=== PATIENT | male | born 1950 | race Caucasian/White ===

== ENCOUNTER 2021-10-18 21:35 | Emergency (ER) | payer OTHER ==
[2021-10-18 21:40] VITALS: PULSE 91; RESP 20; TEMP 98.6
[2021-10-18] MEDS ORDERED: CEPHALEXIN 500 MG CAP PO STA (21:57)
[2021-10-18] MEDS ORDERED: GELATIN SPONGE,ABSORB (SMALL) 1 EACH SPONGE TOPICAL STA (21:57)
[2021-10-18] MEDS ORDERED: CEPHALEXIN 500MG STARTER PACK 4 CAP BTL PO STA (21:58)
--- NOTE | 2021-10-18 22:00 | ED ---
Wound/Laceration HPI - General Chief Complaint: Wound/Laceration Stated Complaint: Left thumb laceration Time Seen by Provider: 10/18/21 21:40 Source: patient, RN notes reviewed, old records reviewed Mode of arrival: ambulatory Limitations: no limitations - History of Present Illness Initial Comments: This is a 71-year-old male to the emergency department for evaluation today. Patient resents today for evaluation regards to right thumb laceration. Patient does puncture laceration to distal tip of right thumb. No current bleeding, significantly bandaged prior to arrival. Patient is denying any decreased range of motion. -: hour(s) Extremity Location: Right: Arm Place: home Patient Tetanus UTD: Yes Context: accidental Associated Symptoms: none - Related Data Home Medications Medication Instructions Recorded Confirmed Albuterol Nebulized [Ventolin 2.5 mg INHALATION RT-Q6H PRN 08/16/21 08/16/21 Nebulized] Albuterol Sulfate [Albuterol 2 puff PO RT-QID PRN 08/16/21 08/16/21 Sulfate Hfa] Atorvastatin [Lipitor] 40 mg PO HS 08/16/21 08/16/21 Clopidogrel Bisulfate [Plavix] 75 mg PO DAILY 08/16/21 08/16/21 Cyclobenzaprine [Flexeril] 10 mg PO HS 08/16/21 08/16/21 FLUoxetine HCL [PROzac] 20 mg PO DAILY 08/16/21 08/16/21 Gabapentin [Neurontin] 300 mg PO TID 08/16/21 08/16/21 Magnesium Oxide 400 mg PO BID 08/16/21 08/16/21 Naproxen 375 mg PO BID 08/16/21 08/16/21 Omeprazole 40 mg PO DAILY 08/16/21 08/16/21 Sodium Bicarbonate Tab 650 mg PO BID 08/16/21 08/16/21 Tamsulosin [Flomax] 0.8 mg PO HS 08/16/21 08/16/21 Tiotropium Br/Olodaterol HCl 2 puff INHALATION RT-DAILY 08/16/21 08/16/21 [Stiolto Respimat Inhal [place]] oxyCODONE-APAP 10-325MG [Percocet 1 tab PO Q4H PRN 08/16/21 08/16/21 10-325 mg] Allergies Allergy/AdvReac Type Severity Reaction Status Date / Time No Known Allergies Allergy Verified 10/18/21 21:39 Review of Systems ROS Statement: Those systems with pertinent positive or pertinent negative responses have been documented in the HPI. ROS Other: All systems not noted in ROS Statement are negative. Past Medical History Past Medical History: COPD, CVA/TIA, Hypertension, Myocardial Infarction ([place]) Additional Past Medical History / Comment(s): stage 3 kidney failure, heart attack at 30, history of HTN does not take medication now Last Myocardial Infarction Date:: unknown History of Any Multi-Drug Resistant Organisms: None Reported Past Surgical History: Back Surgery Additional Past Surgical History / Comment(s): back surgery, rods and spacers placed 05/09 Past Psychological History: Depression Smoking Status: Former smoker Past Alcohol Use History: None Reported Past Drug Use History: None Reported - Past Family History Family Family Medical History: No Reported History General Exam Limitations: no limitations General appearance: alert, in no apparent distress Head exam: Present: atraumatic, normocephalic, normal inspection Eye exam: Present: normal appearance, PERRL, EOMI. Absent: scleral icterus, conjunctival injection, periorbital swelling ENT exam: Present: normal exam, mucous membranes moist Neck exam: Present: normal inspection. Absent: tenderness, meningismus, lymphadenopathy Respiratory exam: Present: normal lung sounds bilaterally. Absent: respiratory distress, wheezes, rales, rhonchi, stridor Cardiovascular Exam: Present: regular rate, normal rhythm, normal heart sounds. Absent: systolic murmur, diastolic murmur, rubs, gallop, clicks GI/Abdominal exam: Present: soft, normal bowel sounds. Absent: distended, tenderness, guarding, rebound, rigid Extremities exam: Present: normal inspection, full ROM, normal capillary refill, other (minimal bleeding 1 cm thumb laceration). Absent: tenderness, pedal edema, joint swelling, calf tenderness Back exam: Present: normal inspection Neurological exam: Present: alert, oriented X3, CN II-XII intact Psychiatric exam: Present: normal affect, normal mood Skin exam: Present: warm, dry, intact, normal color. Absent: rash Course Vital Signs 10/18/21 21:37 Temperature 98.6 F Pulse Rate 91 Respiratory 20 Rate O2 Sat by Pulse 99 Oximetry - Reevaluation(s) Reevaluation #1: 10/18/21 22:04 Medical record is reviewed Reevaluation #2: 10/18/21 22:04 Patient has tetanus up-to-date, will be placed on antibiotics Patient informed results questions answered Patient still has full range of motion with thumb no current bleeding Reevaluation #3: 10/18/21 22:05 Wound is cleaned and irrigated here in the emergency department, repaired with combination of Dermabond and Gelfoam Procedures - Laceration Laceration #1 Consent Obtained: verbal consent Indication: laceration Site: hand (Right Thumb) Size (cm): 1 Description: linear, clean Depth: simple, single layer Type of Sutures: other (dermabond and Gelfoam) Size of Sutures: other (dermabond and Gelfoam) Patient Tolerated Procedure: well Medical Decision Making - Medical Decision Making 71 male DF for the laceration, accidental laceration to right thumb no current bleeding. Lacerations repaired with sutures, just requiring Gelfoam and Dermabond Disposition Clinical Impression: Laceration, Laceration of right thumb Disposition: HOME SELF-CARE Condition: Good Instructions (If sedation given, give patient instructions): Laceration (ED), Skin Adhesive Care (ED) Is patient prescribed a controlled substance at d/c from ED?: No Referrals: Nonstaff,Physician [Primary Care Provider] - 1-2 days
[2021-10-18] MEDS ORDERED: TOPICAL SKIN ADHESIVE 1 EACH AMP TOPICAL STA (22:09)
== END 2021-10-18 22:32 | disposition home or self-care (01) ==
LOC: EC 21:35
DX: S61.011A Laceration without foreign body of right thumb without damage to nail, initial encounter (principal); J44.9 Chronic obstructive pulmonary disease, unspecified; I10 Essential (primary) hypertension; I25.2 Old myocardial infarction; F32.A Depression, unspecified; Z79.02 Long term (current) use of antithrombotics/antiplatelets; Z86.73 Personal history of transient ischemic attack (TIA), and cerebral infarction without residual deficits; Z87.891 Personal history of nicotine dependence; X58.XXXA Exposure to other specified factors, initial encounter
CPT/HCPCS: 12001; 99282

== ENCOUNTER 2022-03-28 16:31 | Emergency (ER) | payer OTHER, MEDICARE ==
[2022-03-28 16:49] VITALS: BP 105/51; PULSE 95; RESP 20; TEMP 97.8
[2022-03-28] MEDS ORDERED: KETOROLAC 15 MG/ML 1 ML VIAL IM STA (17:14)
[2022-03-28] MEDS ORDERED: MORPHINE SULFATE 4 MG/ML SYRINGE IM STA (17:14)
--- NOTE | 2022-03-28 18:02 | CT ---
EXAMINATION TYPE: CT lumbar spine wo con DATE OF EXAM: 03/28/2022 COMPARISON: None HISTORY: Back pain after fall. Fell into tree stump CT DLP: 1052.6 mGycm Automated exposure control for dose reduction was used. Images obtained from the level of T12-S2 vertebra with no contrast. Fairly normal alignment. There is a minimal L4-5 subluxation. There is luzmaria and screws fusing posterio rly the lumbar spine from L3 to L5. There is no paraspinal mass. There is right side multilevel brittani ectomy defect. Sacroiliac joints are intact. No focal bone destruction. There is disc prosthesis at L 3-4 and L4-5. There is vacuum disc at L5-S1. The visualized sacrum appears intact. IMPRESSION: Previous surgery. No acute abnormality of the lumbar spine. No fracture seen.
--- NOTE | 2022-03-28 18:29 | ED ---
Back Pain [facility] - General Chief Complaint: Back Pain/Injury Stated Complaint: Fall, Lower Back Pain Time Seen by Provider: 03/28/22 16:51 Source: patient, RN notes reviewed Limitations: no limitations - History of Present Illness Initial Comments: Patient is a 71-year-old male presents the emergency room with complaints of persistent severe back pain and bilateral lower extremity tingling ongoing since a fall earlier in the week. He reports that he has chronic back pain and underwent spinal fusion with hardware implementation in May of last year. He reports he had bilateral lower extremity tingling prior to surgery however it had resolved postoperatively. He wears his back brace regularly and is taking Cicero along with a muscle relaxer for pain. He reports that he took both of those medications earlier today without any symptom relief. He denies any bowel or bladder incontinence, focal neuro deficits, weakness, saddle paresthesia, or difficulty walking. He has a past medical history significant for COPD, TIA, CAD, PR, hypertension and chronic kidney disease stage III. He denies any other complaints or concerns at this time. - Related Data Home Medications Medication Instructions Recorded Confirmed Albuterol Nebulized [Ventolin 2.5 mg INHALATION RT-Q6H PRN 08/16/21 08/16/21 Nebulized] Albuterol Sulfate [Albuterol 2 puff PO RT-QID PRN 08/16/21 08/16/21 Sulfate Hfa] Atorvastatin [Lipitor] 40 mg PO HS 08/16/21 08/16/21 Clopidogrel Bisulfate [Plavix] 75 mg PO DAILY 08/16/21 08/16/21 Cyclobenzaprine [Flexeril] 10 mg PO HS 08/16/21 08/16/21 FLUoxetine HCL [PROzac] 20 mg PO DAILY 08/16/21 08/16/21 Gabapentin [Neurontin] 300 mg PO TID 08/16/21 08/16/21 Magnesium Oxide 400 mg PO BID 08/16/21 08/16/21 Naproxen 375 mg PO BID 08/16/21 08/16/21 Omeprazole 40 mg PO DAILY 08/16/21 08/16/21 Sodium Bicarbonate Tab 650 mg PO BID 08/16/21 08/16/21 Tamsulosin [Flomax] 0.8 mg PO HS 08/16/21 08/16/21 Tiotropium Br/Olodaterol HCl 2 puff INHALATION RT-DAILY 08/16/21 08/16/21 [Stiolto Respimat Inhal [place]] oxyCODONE-APAP 10-325MG [Percocet 1 tab PO Q4H PRN 08/16/21 08/16/21 10-325 mg] Previous Rx's Medication Instructions Recorded Lidocaine 5% Patch [Lidoderm 5% 1 patch TOPICAL DAILY 7 Days #7 03/28/22 Patch] patch methylPREDNISolone Dose Pack 4 mg PO DIRECTED #21 tab 03/28/22 [Medrol Dose Pack] Allergies Allergy/AdvReac Type Severity Reaction Status Date / Time No Known Allergies Allergy Verified 03/28/22 16:49 Review of Systems ROS Statement: Those systems with pertinent positive or pertinent negative responses have been documented in the HPI. ROS Other: All systems not noted in ROS Statement are negative. Past Medical History Past Medical History: COPD, CVA/TIA, Hypertension, Myocardial Infarction ([place]) Additional Past Medical History / Comment(s): stage 3 kidney failure, heart attack at 30, history of HTN does not take medication now Last Myocardial Infarction Date:: unknown History of Any Multi-Drug Resistant Organisms: None Reported Past Surgical History: Back Surgery Additional Past Surgical History / Comment(s): back surgery, rods and spacers placed 05/09 Past Psychological History: Depression Smoking Status: Former smoker Past Alcohol Use History: None Reported Past Drug Use History: None Reported - Past Family History Family Family Medical History: No Reported History General Exam Limitations: no limitations Course Vital Signs 03/28/22 16:47 Temperature 97.8 F Pulse Rate 95 Respiratory 20 Rate Blood Pressure 105/51 O2 Sat by Pulse 97 Oximetry Medical Decision Making - Medical Decision Making Given previous back history with surgery and hardware implementation concern for hardware dislodgment in the onset of, with return of presurgical symptoms. Pain refractory to oral medications will give morphine along with dose of ketolac. No indication for any other diagnostic imaging or laboratory studies at this time. CT lumbar spine without contrast shows previous surgery no acute abnormalities of the lumbar spine no fracture seen with fairly normal alignment. Pain improved with morphine and Toradol. Discuss computed tomography scan results with patient patient agreeable for discharge home with follow-up with his primary care provider and orthopedic surgeon. Continue to use home analgesics including Cicero and Flexeril. Will give Medrol Dosepak and lidocaine patches to help with acute pain symptoms. Case discussed with Dr. Reyes. - Radiology Data Radiology results: report reviewed, image reviewed Disposition Clinical Impression: Lumbar back pain with radiculopathy affecting lower extremity Disposition: HOME SELF-CARE Condition: Stable Instructions (If sedation given, give patient instructions): Acute Low Back Pain (ED) Additional Instructions: Please continue to wear back brace. Please utilize already prescribed Cicero and muscle relaxer for pain along with Medrol Dosepak to be taken as prescribed until completed. Utilization of lidocaine patches for acute pain is also recommended. Avoid heavy lifting. Please follow-up with your primary care provider annual orthopedic surgeon. If any worsening of symptoms or concerns please return to the emergency room. Prescriptions: Lidocaine 5% Patch [Lidoderm 5% Patch] 1 patch TOPICAL DAILY 7 Days #7 patch methylPREDNISolone Dose Pack [Medrol Dose Pack] 4 mg PO DIRECTED #21 tab Is patient prescribed a controlled substance at d/c from ED?: No Referrals: None,Stated [Primary Care Provider] - 1-2 days Time of Disposition: 18:31
== END 2022-03-28 18:51 | disposition home or self-care (01) ==
LOC: EC 16:31
DX: M54.16 Radiculopathy, lumbar region (principal); I10 Essential (primary) hypertension; J44.9 Chronic obstructive pulmonary disease, unspecified; I25.2 Old myocardial infarction; Z87.891 Personal history of nicotine dependence
CPT/HCPCS: 72131; 99283; 96372; J2270; J1885

== ENCOUNTER → 2022-04-28 | Outpatient (CLI) | payer MEDICARE, OTHER ==
--- NOTE | 2022-04-29 04:52 | MR ---
EXAMINATION TYPE: MR lumbar spine wo con DATE OF EXAM: 04/28/2022 COMPARISON: None HISTORY: Low back pain that radiates down legs, trouble walking. History of surgery Multiplanar multiecho imaging of the lumbar spine with no contrast. Normal alignment. There is metal artifact from screws and rods fusing posteriorly the lumbar spine fr om L3 to L5. No evidence of spinal stenosis. Disc spaces are fairly normal. No compression fracture. The sacrum appears intact. No evidence of lumbar paraspinal mass. Sacroiliac joints appear intact. No pathologic fluid collection. IMPRESSION: Multilevel fusion surgery. No spinal stenosis. No fracture. There is some mild facet arthropathy at L 4-5 and probably some lateral recess stenosis.
== END | disposition home or self-care (01) ==
LOC: RADMRIMAIN 14:29
PROVIDERS: ATTEND Neurological Surgery
DX: M48.062 Spinal stenosis, lumbar region with neurogenic claudication (principal); M43.23 Fusion of spine, cervicothoracic region
CPT/HCPCS: 72148

== ENCOUNTER → 2022-05-27 | Outpatient (CLI) | payer OTHER ==
[2022-05-27 13:55] LABS: Partial Thromboplastin Time 24.8 sec (22.0-30.0); Prothrombin Time 10.5 sec (9.0-12.0)
[2022-05-27 18:06] LABS: Albumin 4.2 g/dL (3.8-4.9); Albumin/Globulin Ratio 1.24 (1.60-3.17); Anion Gap 11.2 mmol/L (10.00-18.00); BUN/Creat Ratio 11.1 Ratio (12.00-20.00); Blood Urea Nitrogen 13.1 mg/dL (9.0-27.0); Calcium 9.3 mg/dL (8.7-10.3); Carbon Dioxide 24.3 mmol/L (20.0-27.5); Globulin 3.4 g/dL (1.6-3.3); Non-African American GFR(CKD) 62.2 (60.0-200.0); Potassium 4.6 mmol/L (3.5-5.5); Total Bilirubin 0.4 mg/dL (0.30-1.20); Total Protein 7.6 g/dL (6.2-8.2)
[2022-05-27 18:25] LABS: HCT 36.9 % (39.6-50.0); HGB 11.6 g/dL (13.0-17.0); MCH 25.8 pg (27.0-32.0); MCHC 31.4 g/dL (32.0-37.0); MCV 82.2 fL (80.0-97.0); Mean Platelet Volume 8.7 fL (9.5-12.2); NRBC Per 100 WBC 0 /100 WBCS (0.0-0.0); Platelet Count 370 X 10*3/uL (140-440); RBC 4.49 X 10*6/uL (4.40-5.60); WBC 7.02 X 10*3/uL (4.50-10.00)
--- NOTE | 2022-05-28 21:35 | XR ---
EXAMINATION TYPE: XR chest 2V DATE OF EXAM: 05/27/2022 COMPARISON: 08/16/2021 INDICATION: Presurgical clearance TECHNIQUE: Frontal and lateral views of the chest are obtained. FINDINGS: The heart size is normal. The pulmonary vasculature is normal. There are increased lung markings at the lung apices. Bilateral apical thickening is present, greater on the right. Increased lung markings extend through the right lung. Correlate for pulmonary fibrosi s. IMPRESSION: 1. By lateral apical thickening with increased lung markings more noted on the right compatible with pulmonary fibrosis. Findings appear similar to comparison
== END | disposition home or self-care (01) ==
LOC: LABWHC1 12:35
PROVIDERS: ATTEND Neurological Surgery
DX: Z01.812 Encounter for preprocedural laboratory examination (principal); J84.10 Pulmonary fibrosis, unspecified
CPT/HCPCS: 36415; 71046; 80053; 85027; 85610; 85730; 93005

== ENCOUNTER 2022-09-18 16:44 | Observation (INO) | payer OTHER, MEDICARE ==
--- NOTE | 2022-09-18 18:14 | XR ---
EXAMINATION TYPE: XR chest 2V DATE OF EXAM: 09/18/2022 6:03 PM COMPARISON: Chest radiographs from 05/27/2022 TECHNIQUE: XR chest 2V Frontal and lateral views of the chest. CLINICAL INDICATION:Male, 72 years old with history of Chest Pain; FINDINGS: Lungs/Pleura: Scattered subtle reticular and hazy opacities. No evidence of pneumothorax, focal conso lidation or pleural effusion. There is flattening of the diaphragm with increased lucency of the lung s. Pulmonary vascularity: Unremarkable. Heart/mediastinum: Cardiomediastinal silhouette is unremarkable. Musculoskeletal: No acute osseous pathology. IMPRESSION: 1. Subtle scattered opacities which may represent an atypical pneumonia. 2. Emphysema changes.
[2022-09-18] MEDS ORDERED: ALBUTEROL HFA INHALER INHALATION STA (18:22)
--- NOTE | 2022-09-18 18:27 | ED ---
Chest Pain HPI - General Chief Complaint: Chest Pain Stated Complaint: covid+/cough/chest pain Time Seen by Provider: 09/18/22 17:40 Source: patient, RN notes reviewed Mode of arrival: wheelchair Limitations: no limitations - History of Present Illness Initial Comments: 72-year-old male with a history of COPD who states he's been having rhinorrhea cough and shortness breath or past couple days she did a home test today and is COVID-19 positive. He also states she's had some left-sided chest pressure is seemed to get worse with deep breathing. No overt fevers chills or sweats at this time. No palpitations no other complaints or modifying factors at this time MD Complaint: chest pain, other - Related Data Home Medications Medication Instructions Recorded Confirmed RX: Albuterol Nebulized [Ventolin 2.5 mg INHALATION RT-Q6H PRN 08/16/21 09/18/22 Nebulized] RX: Atorvastatin [Lipitor] 40 mg PO HS 08/16/21 09/18/22 RX: Clopidogrel Bisulfate [Plavix] 75 mg PO DAILY 08/16/21 09/18/22 RX: Cyclobenzaprine [Flexeril] 10 mg PO HS 08/16/21 09/18/22 RX: FLUoxetine HCL [PROzac] 20 mg PO DAILY 08/16/21 09/18/22 RX: Gabapentin [Neurontin] 300 mg PO TID 08/16/21 09/18/22 RX: Magnesium Oxide 400 mg PO BID 08/16/21 09/18/22 RX: Naproxen 375 mg PO BID PRN 08/16/21 09/18/22 RX: Omeprazole 40 mg PO DAILY 08/16/21 09/18/22 RX: Sodium Bicarbonate Tab 650 mg PO BID 08/16/21 09/18/22 RX: Tamsulosin [Flomax] 0.8 mg PO HS 08/16/21 09/18/22 RX: Tiotropium Br/Olodaterol HCl 2 puff INHALATION RT-DAILY 08/16/21 09/18/22 [Stiolto Respimat Inhal [place]] HYDROcodone/APAP 7.5-325MG [[place] 1 tab PO QID 09/18/22 09/18/22 7.5-325] Mometasone Furoate [Asmanex Hfa] 2 puff INHALATION RT-DAILY 09/18/22 09/18/22 Allergies Allergy/AdvReac Type Severity Reaction Status Date / Time No Known Allergies Allergy Verified 09/18/22 19:59 Review of Systems ROS Statement: Those systems with pertinent positive or pertinent negative responses have been documented in the HPI. ROS Other: All systems not noted in ROS Statement are negative. Past Medical History Past Medical History: COPD, CVA/TIA, Hypertension, Myocardial Infarction ([place]) Additional Past Medical History / Comment(s): stage 3 kidney failure, heart attack at 30, history of HTN does not take medication now Last Myocardial Infarction Date:: unknown History of Any Multi-Drug Resistant Organisms: None Reported Past Surgical History: Back Surgery Additional Past Surgical History / Comment(s): back surgery, rods and spacers placed 05/09 Past Psychological History: Depression Smoking Status: Former smoker Past Alcohol Use History: None Reported Past Drug Use History: None Reported - Past Family History Family Family Medical History: No Reported History General Exam - General Exam Comments Initial Comments: This is a well-developed well-nourished awake alert oriented 5 male Limitations: no limitations General appearance: alert, anxious Head exam: Present: atraumatic, normocephalic, normal inspection Eye exam: Present: normal appearance, PERRL, EOMI. Absent: scleral icterus, conjunctival injection, periorbital swelling ENT exam: Present: normal exam, mucous membranes moist Neck exam: Present: normal inspection, full ROM, other (No studies. [place]its). Absent: tenderness, meningismus, lymphadenopathy Respiratory exam: Present: normal lung sounds bilaterally, wheezes, decreased breath sounds. Absent: respiratory distress, rales, rhonchi, stridor Cardiovascular Exam: Present: regular rate, normal rhythm, normal heart sounds. Absent: systolic murmur, diastolic murmur, rubs, gallop, clicks GI/Abdominal exam: Present: soft, normal bowel sounds. Absent: distended, tenderness, guarding, rebound, rigid Extremities exam: Present: normal inspection, full ROM, normal capillary refill. Absent: tenderness, pedal edema, joint swelling, calf tenderness Back exam: Present: normal inspection Neurological exam: Present: alert, oriented X3, CN II-XII intact Psychiatric exam: Present: normal affect, normal mood Skin exam: Present: warm, dry, intact, normal color. Absent: rash Course Vital Signs 09/18/22 17:22 Temperature 98.9 F Pulse Rate 96 Respiratory 22 Rate Blood Pressure 102/59 O2 Sat by Pulse 98 Oximetry Chest Pain MDM - MDM EKG interpreted by me sinus rhythm of 85. Interval 161 QRS duration 86 daily since QTC 347/[address]-T wave changes nonspecific T-wave configuration noted. did come the emergency department see the patient he did that with complaints of chest pain shortness of breath he did have an elevated d- dimer also has a positive COVID-19 test. Patient be admitted for evaluation of COPD exacerbation COVID-19 and chest pain. Was pt. sent in by a medical professional or institution? @ No-[by , PA, [employer], urgent care, hospital, or shelter] Did you speak to anyone other than the patient for history? @ No-[EMS, parent, family, police, friend?] Did you review nursing and triage notes? @ S agree -[agree or disagree, why?] Were old charts reviewed? @ No -[outside hosp., previous admissions, EMS record, old EKG, old radiological studies, urgent care reports/EKGs, shelter records?] Differential Diagnosis? @ Chest pain, angina, pneumonia, pulmonary embolism-[chest pain, altered mental status abdominal pain women, abdominal pain men, vaginal bleeding, weakness, fever, dyspnea, syncope, headache, dizziness, GI bleed, back pain, seizure] EKG interpreted by me (3pts min.)? @ Yes-[none] X-rays interpreted by me (1pt min.)? @ Yes they for acute process as negative for PE-[none] CT interpreted by me (1pt min.)? @ -[none] U/S interpreted by me (1pt. min.)? @ -[none] What testing was considered but not performed? (CT, X-rays, U/S, labs)? Why? @ [CT, X-rays, U/S, labs? Why?] What meds were considered but not given? Why? @ -[none] Did you discuss the management of the patient with other professionals? @ Dr Andrews-[professionals i.e. , PA, [employer], Lab, RT, Psych Nurse, Manager Eligibility, Podiatric Technician, Teacher, Investigations Consultant, bilingual case manager? Give summary] Did you reconcile home meds? @ -[none] Was smoking cessation discussed for >3mins.? @ -[none] Was critical care preformed (if so, how long)? @ -[none] Were there social determinants of health that impacted care today? How? (Homelessness, low income, unemployed, alcoholism, drug addiction, transportation, low edu. Level, literacy, decrease access to med. care, [facility], rehab)? @ -[Homelessness, low income, unemployed, alcoholism, drug addiction, transportation, low edu. Level, literacy, decrease access to med. care, [facility], re hab?] Was there de-escalation of care discussed even if they declined? (Discuss DNR or withdrawal of care, Hospice)? @ -[Discuss DNR or withdrawal of care, Hospice?] What co-morbidities impacted this encounter? (DM, HTN, Smoking, COPD, CAD, Cancer, CVA, Hep., AIDS, mental health diagnosis, sleep apnea, morbid obesity)? @ -[DM, HTN, Smoking, COPD, CAD, Cancer, CVA, Hep., AIDS, mental health diagnosis, sleep apnea, morbid obesity?] Was patient admitted / discharged? @ Admitted-[hospital course] Undiagnosed new problem with uncertain prognosis? @ -[none] Drug Therapy requiring intensive monitoring for toxicity (Heparin, Nitro, Insulin, Cardizem)? @ -[none] Were any procedures done? @ -[none] Diagnosis/symptom? @ -Chest pain, COVID-19 [default] Acute, or Chronic, or Acute on Chronic? @ -[default] Uncomplicated (without systemic symptoms) or Complicated (systemic symptoms)? @ Complicated-[default] Side effects of treatment? @ -[none] Exacerbation, Progression, or Severe Exacerbation] @ -[no] Poses a threat to life or bodily function? @ Potential-[no] Disposition Clinical Impression: Unstable angina pectoris, COPD exacerbation, COVID-19 Disposition: ADMITTED IP TO THIS HOSP Condition: Fair Referrals: [facility],Clinic [Primary Care Provider] - 1-2 days Decision Date: 09/18/22 Decision Time: 20:50
[2022-09-18 19:10] LABS: Basophils % (A) 0 %; Eosinophils # (A) 0.3 k/uL (0-0.7); Eosinophils % (A) 4 %; HCT 34.1 % (39.0-53.0); HGB 11.4 gm/dL (13.0-17.5); Hypochromasia Slight; Lymphocytes # (A) 1.6 k/uL (1.0-4.8); Lymphocytes % (A) 20 %; MCH 26.3 pg (25.0-35.0); MCHC 33.5 g/dL (31.0-37.0); MCV 78.4 fL (80.0-100.0); Mean Platelet Volume 7.1; Microcytosis Slight; Monocytes # (A) 0.4 k/uL (0-1.0); Monocytes % (A) 5 %; Neutrophils # (A) 5.5 k/uL (1.3-7.7); Neutrophils % (A) 69 %; Platelet Count 302 k/uL (150-450); RBC 4.35 m/uL (4.30-5.90); RDW 15.5 % (11.5-15.5)
[2022-09-18 19:19] LABS: Albumin 4.1 g/dL (3.5-5.0); Calcium 8.5 mg/dL (8.4-10.2); Magnesium 2.1 mg/dL (1.6-2.3); Potassium 4.1 mmol/L (3.5-5.1); Total Bilirubin 0.3 mg/dL (0.2-1.3); Total Protein 7.3 g/dL (6.3-8.2)
[2022-09-18 19:28] LABS: INR 0.9 (<1.2)
[2022-09-18 19:29] LABS: Partial Thromboplastin Time 26.7 sec (22.0-30.0); Prothrombin Time 9.7 sec (9.0-12.0)
--- NOTE | 2022-09-18 20:41 | CT ---
EXAMINATION TYPE: CT angio chest CT DLP: 367.2 mGycm, Automated exposure control for dose reduction was used. DATE OF EXAM: 09/18/2022 8:22 PM COMPARISON: 08/16/2021 CLINICAL INDICATION:Male, 72 years old with history of PE suspected; GIAN, elevated D-dimer, COVID +. TECHNIQUE/CONTRAST: CTA scan of the thorax is performed with IV Contrast, patient injected with 66 mL of Isovue 300, pulm onary embolism protocol. MIP images are created and reviewed. FINDINGS: Pulmonary Artery: There is no evidence for a filling defect within the pulmonary vasculature to sugge st acute pulmonary embolism. The pulmonary artery is of normal size. Lungs/Pleura: No evidence of focal consolidation, pleural effusion or pneumothorax. Calcifications al amadeo the pleura most pronounced along the right. No focal consolidation or pneumothorax or large pleur al effusion. Scattered peripheral reticular opacities with apical pleural scarring bilaterally. Scatt ered bronchiectasis is present. Findings within the lungs are similar to prior on 08/16/2021. Left lo wer lobe pulmonary nodule measuring up to 3 mm is also stable from prior. Airway: Scattered bronchiectasis. Heart: Heart is within normal limits for size. Coronary artery atherosclerosis is present. Vasculature: No evidence of aortic aneurysm. Atherosclerosis of the arterial vasculature. Mediastinum: No gross evidence of adenopathy. Musculoskeletal: No acute osseous abnormalities, multilevel disc degeneration changes throughout the spine are mild. Soft Tissues: Unremarkable. Lower neck: No significant findings. Upper Abdomen: No significant findings. IMPRESSION: 1. No evidence of pulmonary embolism. 2. Pleural calcifications with mild emphysema and interstitial prominence suggestive of prior asbesto s exposure.
[2022-09-18] MEDS ORDERED: NALOXONE 0.4 MG/ML 1 ML VIAL IVP PRN (20:51)
[2022-09-18] MEDS ORDERED: ACETAMINOPHEN TAB 325 MG TAB PO PRN (20:51)
[2022-09-18] MEDS ORDERED: methylPREDNISolone SOD SUCCI 125 MG/2 ML VIAL IV STA (20:51)
[2022-09-18] MEDS: MAGNESIUM OXIDE 400 MG TAB PO SCH (23:02)
[2022-09-18] MEDS: NAPROXEN 250 MG TAB PO PRN (23:02)
[2022-09-18] MEDS: ATORVASTATIN 40 MG TAB PO SCH (23:03)
[2022-09-18] MEDS: TAMSULOSIN 0.4 MG CAP.ER.24H PO SCH (23:03)
[2022-09-18] MEDS: SODIUM BICARBONATE TAB 650 MG TAB PO SCH (23:04)
[2022-09-18] MEDS: HYDROcodone/APAP 7.5-325MG 1 EACH TAB PO SCH (23:04)
[2022-09-18] MEDS: GABAPENTIN 300 MG CAP PO SCH (23:04)
[2022-09-18] MEDS: CYCLOBENZAPRINE 10 MG TAB PO SCH (23:04)
[2022-09-19] MEDS ORDERED: ASPIRIN 325 MG TAB PO STA (00:55)
--- NOTE | 2022-09-19 00:57 | P.HPIM ---
History of Present Illness H&P Date: 09/18/22 The patient is a 72-year-old male with a PMH of COPD and coronary artery disease status post MIs who presented to the emergency room after a home positive COVID- 19 test. Patient reports that over the past 2 days, he has been experiencing cough productive of thick white phlegm, rhinorrhea, and headaches. He also reports that he developed a left-sided chest pressure this a.m., 7 out of 10 of maximal intensity, constant, somewhat worsened with exertion, with no alleviating factors. He denied pleuritic nature to the pain and denied lower extremity swelling or pain. States that his chest discomfort resolved spontaneously after 2 or 3 hours and he was pain-free at the time of interview. Patient also reports attempting to use his COPD inhalers multiple times over the past 2 days with minimal relief. Reports that he contacted the [place] office earlier today who advised him to take the COVID-19 test, after which they subsequently advised him to go to the emergency room in light of his history of coronary artery disease with mild MIs as per the patient. Upon chart review, it was noted the patient was admitted for chest discomfort on 08/16/21 during which time he underwent a nuclear stress test which was negative. Case discussed in detail with the ED physician. Upon presentation, the patient's BP was 102/59, SpO2 98% on room air, pulse 96, respiratory rate 22, and temp 98.9F. In the emergency room the patient underwent a chest CTA which revealed findings consistent with prior asbestos exposure no evidence of PE. EKG had revealed sinus rhythm with T-wave flattening diffusely at 85 bpm as reviewed by me. Chest x-ray revealed scattered opacities bilaterally likely secondary to atypical pneumonia with other emphysematous changes. Laboratory evaluation was remarkable for troponin less than 0.012 with COVID-19 PCR positive and MCV 78.4. Review of systems: Pertinent positives and negatives as discussed in HPI, a complete review of systems was performed and all other systems are negative. Physical examination: General: non toxic, no distress, appears at stated age, normal weight Derm: no unusual rashes/lesions, warm Head: atraumatic, normocephalic, symmetric Eyes: EOMI, no lid lag, anicteric sclera, pupils equal round reactive to light ENT: Nose and ears atraumatic Neck: No cervical lymphadenopathy, trachea midline, supple Mouth: no lip lesion, mucus membranes moist Cardiovascular: S1S2 reg, no murmur, positive dorsalis pedis pulse bilateral, no edema Lungs: Scattered ronchi, no rales, no accessory muscle use Abdominal: soft, nontender to palpation, no guarding Ext: muscle strength 5 out of 5 in all 4 extremities grossly, no gross muscle atrophy, no contractures, Neuro: CN II-XI grossly intact, no gross focal neuro deficits Psych: Alert, oriented, appropriate affect Assessment/plan Chest pain, rule out ACS -Cardiac monitoring -Consult cardiology -Trend troponin -Initiate aspirin and statin COVID-19 pneumonia, unable to rule out superimposed bacterial pneumonia, in setting of chronic COPD -Check procalcitonin levels -Initiate Decadron -Continue home inhalers DVT prophylaxis -Lovenox The patient is admitted with an anticipated greater than 2 midnight stay for evaluation of COVID CODE STATUS: Full Code Discussed with: Patient Anticipated discharge date: 09/20/[address]: Home Past Medical History Past Medical History: COPD, CVA/TIA, Hypertension, Myocardial Infarction ([place]) Additional Past Medical History / Comment(s): stage 3 kidney failure, heart attack at 30, history of HTN does not take medication now Last Myocardial Infarction Date:: unknown History of Any Multi-Drug Resistant Organisms: None Reported Past Surgical History: Back Surgery Additional Past Surgical History / Comment(s): back surgery, rods and spacers placed 05/09 Past Psychological History: Depression Smoking Status: Former smoker Past Alcohol Use History: None Reported Past Drug Use History: None Reported - Past Family History Family Family Medical History: COPD Medications and Allergies Home Medications Medication Instructions Recorded Confirmed Type Albuterol Nebulized [Ventolin 2.5 mg INHALATION RT-Q6H PRN 08/16/21 09/18/22 History Nebulized] Atorvastatin [Lipitor] 40 mg PO HS 08/16/21 09/18/22 History Clopidogrel Bisulfate [Plavix] 75 mg PO DAILY 08/16/21 09/18/22 History Cyclobenzaprine [Flexeril] 10 mg PO HS 08/16/21 09/18/22 History FLUoxetine HCL [PROzac] 20 mg PO DAILY 08/16/21 09/18/22 History Gabapentin [Neurontin] 300 mg PO TID 08/16/21 09/18/22 History Magnesium Oxide 400 mg PO BID 08/16/21 09/18/22 History Naproxen 375 mg PO BID PRN 08/16/21 09/18/22 History Omeprazole 40 mg PO DAILY 08/16/21 09/18/22 History Sodium Bicarbonate Tab 650 mg PO BID 08/16/21 09/18/22 History Tamsulosin [Flomax] 0.8 mg PO HS 08/16/21 09/18/22 History Tiotropium Br/Olodaterol HCl 2 puff INHALATION RT-DAILY 08/16/21 09/18/22 History [Stiolto Respimat Inhal [place]] HYDROcodone/APAP 7.5-325MG [[place] 1 tab PO QID 09/18/22 09/18/22 History 7.5-325] Mometasone Furoate [Asmanex Hfa] 2 puff INHALATION RT-DAILY 09/18/22 09/18/22 History Allergies Allergy/AdvReac Type Severity Reaction Status Date / Time No Known Allergies Allergy Verified 09/18/22 19:59 Physical Exam Vitals: Vital Signs Temp Pulse Resp BP Pulse Ox 09/18/22 17:22 98.9 F 96 22 102/59 98 Intake and Output 09/18/22 09/18/22 09/18/22 06:59 14:59 22:59 Other: Weight 90.718 kg Results CBC & Chem 7: 09/18/22 18:38 09/18/22 18:38 Labs: Abnormal Lab Results - Last 24 Hours (Table) 09/18/22 09/18/22 09/18/22 Range/Units 18:38 18:38 18:38 Hgb 11.4 L (13.0-17.5) gm/dL Hct 34.1 L (39.0-53.0) % MCV 78.4 L (80.0-100.0) fL D-Dimer 0.75 H (<0.60) mg/L FEU Sodium 134 L (137-145) mmol/L Alkaline Phosphatase 178 H (38-126) U/L Coronavirus (PCR) (Not Detectd) 09/18/22 Range/Units 18:38 Hgb (13.0-17.5) gm/dL Hct (39.0-53.0) % MCV (80.0-100.0) fL D-Dimer (<0.60) mg/L FEU Sodium (137-145) mmol/L Alkaline Phosphatase (38-126) U/L Coronavirus (PCR) Detected A (Not Detectd)
[2022-09-19] MEDS ORDERED: methylPREDNISolone SOD SUCCI 125 MG/2 ML VIAL IV SCH (03:00)
[2022-09-19] MEDS: ALBUTEROL HFA INHALER INHALATION SCH ×4 (03:53→20:16)
[2022-09-19] MEDS: PANTOPRAZOLE 40 MG TABLET PO SCH (06:56)
[2022-09-19] MEDS ORDERED: FLUTICASONE 220 MCG INHALER INHALATION SCH (08:00)
[2022-09-19] MEDS: SYMBICORT 80-4.5 MCG INHALER INHALATION SCH ×2 (08:37→20:16)
[2022-09-19] MEDS: GABAPENTIN 300 MG CAP PO SCH ×3 (08:44→20:55)
[2022-09-19] MEDS: MAGNESIUM OXIDE 400 MG TAB PO SCH ×2 (08:44→20:55)
[2022-09-19] MEDS: HYDROcodone/APAP 7.5-325MG 1 EACH TAB PO SCH (08:44)
[2022-09-19] MEDS: SODIUM BICARBONATE TAB 650 MG TAB PO SCH ×2 (08:44→20:54)
[2022-09-19] MEDS: CLOPIDOGREL 75 MG TAB PO SCH (08:44)
[2022-09-19] MEDS: FLUoxetine HCL 20 MG CAP PO SCH (08:44)
[2022-09-19] MEDS: ENOXAPARIN 30 MG/0.3 ML SYRINGE SQ SCH ×2 (08:45→08:55)
--- NOTE | 2022-09-19 08:49 | P.CRDCN ---
History of Present Illness Consult date: 09/19/22 Chief complaint: Chest pain History of present illness: The patient is a pleasant 72-year-old gentleman with a past medical history significant for history of stroke as well as history of COPD and hypertension and dyslipidemia we consulted to see for further evaluation of chest discomfort. The patient was not feeling well at home. He was expressing symptoms of cough. He decided to get tested for COVID-19 that at home and he did and that came in to be positive and for that reason he decided to come to the emergency department where he was tested again and that came in to be abnormal/positive. He was experiencing symptoms of cough and congestion. Beside that he has been expressing symptoms of increasing shortness of breath. The reason we consulted to see the patient because he reports chest discomfort. The discomfort is on the left side of the chest as a pressure/dull kind of discomfort with no radiation to the arms or neck or shoulders or back and no associated symptoms of dizziness or lightheadedness or any feeling of heart racing or fluttering or presyncope or syncope. The workup is unremarkable. The EKG showed sinus rhythm with no significant ST or T-wave abnormalities and enzymes came in to be unremarkable as well. He also underwent a chest x-ray showed no acute abnormalities. He was seen by our service in 2020 where he underwent an echo showed normal left ventricle systolic function was no significant valvular abnormalities and also myocardial perfusion stress test came in to be unremarkable. Currently the patient is on isolation Past Medical History Past Medical History: COPD, CVA/TIA, Hypertension, Myocardial Infarction ([place]) Additional Past Medical History / Comment(s): stage 3 kidney failure, heart attack at 30, history of HTN does not take medication now Last Myocardial Infarction Date:: unknown History of Any Multi-Drug Resistant Organisms: None Reported Past Surgical History: Back Surgery Additional Past Surgical History / Comment(s): back surgery, rods and spacers placed 05/09 Past Psychological History: Depression Smoking Status: Former smoker Past Alcohol Use History: None Reported Past Drug Use History: None Reported - Past Family History Family Family Medical History: COPD Medications and Allergies Home Medications Medication Instructions Recorded Confirmed Type Albuterol Nebulized [Ventolin 2.5 mg INHALATION RT-Q6H PRN 08/16/21 09/18/22 History Nebulized] Atorvastatin [Lipitor] 40 mg PO HS 08/16/21 09/18/22 History Clopidogrel Bisulfate [Plavix] 75 mg PO DAILY 08/16/21 09/18/22 History Cyclobenzaprine [Flexeril] 10 mg PO HS 08/16/21 09/18/22 History FLUoxetine HCL [PROzac] 20 mg PO DAILY 08/16/21 09/18/22 History Gabapentin [Neurontin] 300 mg PO TID 08/16/21 09/18/22 History Magnesium Oxide 400 mg PO BID 08/16/21 09/18/22 History Naproxen 375 mg PO BID PRN 08/16/21 09/18/22 History Omeprazole 40 mg PO DAILY 08/16/21 09/18/22 History Sodium Bicarbonate Tab 650 mg PO BID 08/16/21 09/18/22 History Tamsulosin [Flomax] 0.8 mg PO HS 08/16/21 09/18/22 History Tiotropium Br/Olodaterol HCl 2 puff INHALATION RT-DAILY 08/16/21 09/18/22 History [Stiolto Respimat Inhal [place]] HYDROcodone/APAP 7.5-325MG [[place] 1 tab PO QID 09/18/22 09/18/22 History 7.5-325] Mometasone Furoate [Asmanex Hfa] 2 puff INHALATION RT-DAILY 09/18/22 09/18/22 History Allergies Allergy/AdvReac Type Severity Reaction Status Date / Time No Known Allergies Allergy Verified 09/18/22 19:59 Physical Exam Vitals: Vital Signs Temp Pulse Pulse Resp BP BP Pulse Ox 09/19/22 07:00 97.9 F 87 18 155/79 97 09/19/22 01:17 81 22 09/19/22 00:52 97.6 F 84 20 171/87 99 09/18/22 17:22 98.9 F 96 22 102/59 98 Intake and Output 09/18/22 09/19/22 09/19/22 22:59 06:59 14:59 Intake Total 500 Balance 500 Intake: Oral 500 Other: Voiding Method Toilet # Voids 2 Weight 90.718 kg 90.718 kg - Constitutional General appearance: no acute distress - Respiratory Respiratory: bilateral: CTA - Cardiovascular Rhythm: regular Results 09/18/22 18:38 09/18/22 18:38 Cardiac Enzymes 09/18/22 09/18/22 09/19/22 Range/Units 18:38 18:38 01:04 AST 37 (17-59) U/L Troponin I <0.012 <0.012 (0.000-0.034) ng/mL Coagulation 09/18/22 Range/Units 18:38 PT 9.7 (9.0-12.0) sec APTT 26.7 (22.0-30.0) sec CBC 09/18/22 Range/Units 18:38 WBC 8.0 (3.8-10.6) k/uL RBC 4.35 (4.30-5.90) m/uL Hgb 11.4 L (13.0-17.5) gm/dL Hct 34.1 L (39.0-53.0) % Plt Count 302 (150-450) k/uL Comprehensive Metabolic Panel 09/18/22 Range/Units 18:38 Sodium 134 L (137-145) mmol/L Potassium 4.1 (3.5-5.1) mmol/L Chloride 100 (98-107) mmol/L Carbon Dioxide 26 (22-30) mmol/L BUN 13 (9-20) mg/dL Creatinine 1.05 (0.66-1.25) mg/dL Glucose 98 (74-99) mg/dL Calcium 8.5 (8.4-10.2) mg/dL AST 37 (17-59) U/L ALT 30 (4-49) U/L Alkaline Phosphatase 178 H (38-126) U/L Total Protein 7.3 (6.3-8.2) g/dL Albumin 4.1 (3.5-5.0) g/dL Current Medications Generic Name Dose Route Start Last Admin Trade Name Freq PRN Reason Stop Dose Admin Acetaminophen 650 mg 09/18/22 20:51 Acetaminophen Tab 325 Mg Tab PO Q4HR PRN Mild Pain or Fever > 100.5 Hydrocodone Bitart/Acetaminophen 1 each 09/18/22 22:00 09/19/22 08:44 Hydrocodone/Apap 7.5-325mg 1 Each Tab PO 1 each QID KIERA Administration Albuterol Sulfate 2 puff 09/19/22 02:00 09/19/22 08:37 Albuterol Hfa Inhaler INHALATION 2 puff RT-Q6H KIERA Administration Atorvastatin Calcium 40 mg 09/18/22 21:00 09/18/22 23:03 Atorvastatin 40 Mg Tab PO 40 mg HS KIERA Administration Budesonide/Formoterol Fumarate 2 puff 09/19/22 08:00 09/19/22 08:37 Symbicort 80-4.5 Mcg Inhaler INHALATION 2 puff RT-BID KIERA Administration Clopidogrel Bisulfate 75 mg 09/19/22 09:00 09/19/22 08:44 Clopidogrel 75 Mg Tab PO 75 mg DAILY KIERA Administration Cyclobenzaprine HCl 10 mg 09/18/22 21:00 09/18/22 23:04 Cyclobenzaprine 10 Mg Tab PO 10 mg HS KIERA Administration Dexamethasone 6 mg 09/19/22 09:00 09/19/22 08:44 Dexamethasone 2 Mg Tab PO 6 mg DAILY KIERA Administration Enoxaparin Sodium 30 mg 09/19/22 09:00 09/19/22 08:45 Enoxaparin 30 Mg/0.3 Ml Syringe SQ 30 mg DAILY KIERA Administration Fluoxetine HCl 20 mg 09/19/22 09:00 09/19/22 08:44 Fluoxetine Hcl 20 Mg Cap PO 20 mg DAILY KIERA Administration Gabapentin 300 mg 09/18/22 22:00 09/19/22 08:44 Gabapentin 300 Mg Cap PO 300 mg TID KIERA Administration Magnesium Oxide 400 mg 09/18/22 21:00 09/19/22 08:44 Magnesium Oxide 400 Mg Tab PO 400 mg BID KIERA Administration Naloxone HCl 0.2 mg 09/18/22 20:51 Naloxone 0.4 Mg/Ml 1 Ml Vial IVP Q2M PRN Opioid Reversal Naproxen 500 mg 09/18/22 20:53 09/18/22 23:02 Naproxen 250 Mg Tab PO 500 mg BID PRN Administration Pain Pantoprazole Sodium 40 mg 09/19/22 07:30 09/19/22 06:56 Pantoprazole 40 Mg Tablet PO 40 mg [id number] KIERA Administration Sodium Bicarbonate 650 mg 09/18/22 21:00 09/19/22 08:44 Sodium Bicarbonate Tab 650 Mg Tab PO 650 mg BID KIERA Administration Tamsulosin HCl 0.8 mg 09/18/22 21:00 09/18/22 23:03 Tamsulosin 0.4 Mg Cap.Er.24h PO 0.8 mg HS KIERA Administration Tiotropium [place] 2 puff 09/19/22 08:00 Tiotropium 2.5 Mcg Inhaler INHALATION RT-DAILY KIERA Intake and Output 09/18/22 09/19/22 09/19/22 22:59 06:59 14:59 Intake Total 500 Balance 500 Intake: Oral 500 Other: Voiding Method Toilet # Voids 2 Weight 90.718 kg 90.718 kg 09/18/22 18:38 09/18/22 18:38 Assessment and Plan Assessment: Assessment COVID-19 infection Cough and congestion secondary to the above Chest discomfort History of stroke COPD Plan Acute coronary event was ruled out Stress test and echo from 2020 came in to be unremarkable Consider conservative medical approach unless there is a change in the clinical scenario Follow-up with the patient
[2022-09-19] MEDS ORDERED: dexAMETHasone 2 MG TAB PO SCH (09:00)
[2022-09-19] MEDS ORDERED: KETOROLAC 15 MG/ML 1 ML VIAL IVP STA (10:35)
[2022-09-19] MEDS: NAPROXEN 250 MG TAB PO PRN (10:54)
[2022-09-19] MEDS: HYDROcodone/APAP 10-325MG 1 EACH TAB PO PRN ×2 (14:42→20:55)
[2022-09-19] MEDS: TIOTROPIUM 2.5 MCG INHALER INHALATION SCH (15:57)
--- NOTE | 2022-09-19 19:31 | P.PN ---
Subjective Progress Note Date: 09/19/22 Hospital course: Patient is a very pleasant 72-year-old male with a PMH of COPD and coronary artery disease status post MIs who presented to the emergency room after a home positive COVID-19 test. Patient reports that over the past 2 days, he has been experiencing cough productive of thick white phlegm, rhinorrhea, and headaches. He also reports that he developed a left-sided chest pressure this a.m., 7 out of 10 of maximal intensity, constant, somewhat worsened with exertion, with no alleviating factors. He denied pleuritic nature to the pain and denied lower extremity swelling or pain. States that his chest discomfort resolved spontaneously after 2 or 3 hours and he was pain-free at the time of interview. Patient also reports attempting to use his COPD inhalers multiple times over the past 2 days with minimal relief. Reports that he contacted the [place] office earlier today who advised him to take the COVID-19 test, after which they subsequently advised him to go to the emergency room in light of his history of coronary artery disease with mild MIs as per the patient. Upon chart review, it was noted the patient was admitted for chest discomfort on 08/16/21 during which time he underwent a nuclear stress test which was negative. Case discussed in detail with the ED physician. Upon presentation to the emergency department, the patient's BP was 102/59, SpO2 98% on room air, pulse 96, respiratory rate 22, and temp 98.9F. In the emergency room the patient underwent a chest CTA which revealed findings consistent with prior asbestos exposure no evidence of PE. EKG had revealed sinus rhythm with T-wave flattening diffusely at 85 bpm as reviewed by me. est x-ray revealed scattered opacities bilaterally likely secondary to atypical pneumonia with other emphysematous changes. Laboratory evaluation was remarkable for troponin less than 0.012 with COVID-19 PCR positive and MCV 78.4. Physical exam: Vital signs reviewed and stable. General: Nontoxic, no distress and appears stated age. Derm: Skin warm and dry, normal coloration for ethnicity. Head: Atraumatic, normocephalic and symmetric. Eyes: EOMs intact, no lid lag, and anicteric sclera Mouth: no lip lesions, mucus membranes moist Cardiovascular: regular rate and rhythm with normal S1S2, no murmur, positive posterior tibial pulses bilaterally, and cap refill < 2 seconds. Lungs: Respirations even, regular, and unlabored on room air. Lungs diminished with diffuse rhonchi, no rales, no wheezing, and no accessory muscle usage. Abdominal: soft, nontender to palpation, no guarding, no appreciable organomegaly Ext: ROM intact. No gross muscle atrophy, no edema, no contractures Neuro: Speech clear, face symmetrical and CN II-XII grossly intact with no noted focal neuro deficits Psych: Alert and oriented to person, place, time, and situation. Appropriate and pleasant affect. Assessment and Plan of Care: Chest pain, rule out ACS -Cardiac monitoring -Cardiology following -Troponins negative. -Continue cardiac medication regimen with aspirin, atorvastatin, and Plavix COVID-19 pneumonia in setting of chronic COPD -Oxygenation to be administered and titrated as needed to maintain SPO2 equal to or greater than 90% -Telemetry monitoring. -Encourage Incentive Spirometry 10-15x hourly while awake -Steroids: Decadron 6 mg daily -Pulmonology consulted. -DVT prophylaxis with Lovenox. -Strict Droplet plus Contact precautions -Pro-calcitonin negative at 0.05. -Continue home inhalers CODE STATUS: Full code DVT prophylaxis: Lovenox Discussed with: Patient and RN Anticipated discharge date: 1-[address]: Home A total of 34 minutes was spent on the care of this complex patient more than 50% of the time was spent in counseling and care coordination. Olivier Stephen NP rendered care for this patient independently, reviewed the findin gs and plan as documented in the note above. I did not physically speak with or examine the patient on this date. Patient without hypoxia, Will stop decardon and cancel, pulm consult, anticipate home in AM Objective - Vital Signs Vital signs: Vital Signs Temp 97.9 F 09/19/22 07:00 Pulse 87 09/19/22 07:00 Resp 18 09/19/22 07:00 BP 155/79 09/19/22 07:00 Pulse Ox 97 09/19/22 07:00 FiO2 Intake & Output 09/18/22 09/19/22 09/19/22 18:59 06:59 18:59 Intake Total 500 Balance 500 Weight 90.718 kg 90.718 kg Intake: Oral 500 Other: Voiding Method Toilet # Voids 2 - Labs CBC & Chem 7: 09/18/22 18:38 09/18/22 18:38 Labs: Abnormal Lab Results - Last 24 Hours (Table) 09/18/22 09/18/22 09/18/22 Range/Units 18:38 18:38 18:38 Hgb 11.4 L (13.0-17.5) gm/dL Hct 34.1 L (39.0-53.0) % MCV 78.4 L (80.0-100.0) fL D-Dimer 0.75 H (<0.60) mg/L FEU Sodium 134 L (137-145) mmol/L Alkaline Phosphatase 178 H (38-126) U/L Coronavirus (PCR) (Not Detectd) 09/18/22 Range/Units 18:38 Hgb (13.0-17.5) gm/dL Hct (39.0-53.0) % MCV (80.0-100.0) fL D-Dimer (<0.60) mg/L FEU Sodium (137-145) mmol/L Alkaline Phosphatase (38-126) U/L Coronavirus (PCR) Detected A (Not Detectd)
[2022-09-19] MEDS: TAMSULOSIN 0.4 MG CAP.ER.24H PO SCH (20:54)
[2022-09-19] MEDS: ATORVASTATIN 40 MG TAB PO SCH (20:55)
[2022-09-19] MEDS: CYCLOBENZAPRINE 10 MG TAB PO SCH (20:55)
[2022-09-20] MEDS: ALBUTEROL HFA INHALER INHALATION SCH ×3 (02:23→12:11)
[2022-09-20 04:09] VITALS: RESP 16
[2022-09-20] MEDS: PANTOPRAZOLE 40 MG TABLET PO SCH (06:33)
[2022-09-20 08:02] VITALS: BP 105/61; PULSE 88; TEMP 97.5
[2022-09-20] MEDS: SYMBICORT 80-4.5 MCG INHALER INHALATION SCH (09:01)
[2022-09-20] MEDS: TIOTROPIUM 2.5 MCG INHALER INHALATION SCH (09:01)
[2022-09-20] MEDS: CLOPIDOGREL 75 MG TAB PO SCH (09:21)
[2022-09-20] MEDS: GABAPENTIN 300 MG CAP PO SCH (09:21)
[2022-09-20] MEDS: FLUoxetine HCL 20 MG CAP PO SCH (09:21)
[2022-09-20] MEDS: ENOXAPARIN 40 MG/0.4 ML SYRINGE SQ SCH ×2 (09:21→09:23)
[2022-09-20] MEDS: MAGNESIUM OXIDE 400 MG TAB PO SCH (09:21)
[2022-09-20] MEDS: SODIUM BICARBONATE TAB 650 MG TAB PO SCH (09:21)
[2022-09-20] MEDS: HYDROcodone/APAP 10-325MG 1 EACH TAB PO PRN (09:29)
--- NOTE | 2022-09-20 10:32 | P.PN ---
Subjective Progress Note Date: 09/20/22 Principal diagnosis: Chest discomfort The patient is a pleasant 72-year-old gentleman with a past medical history significant for history of stroke as well as history of COPD and hypertension and dyslipidemia we consulted to see for further evaluation of chest discomfort. The patient was not feeling well at home. He was expressing symptoms of cough. He decided to get tested for COVID-19 that at home and he did and that came in to be positive and for that reason he decided to come to the emergency department where he was tested again and that came in to be abnormal/positive. He was experiencing symptoms of cough and congestion. Beside that he has been expressing symptoms of increasing shortness of breath. The reason we consulted to see the patient because he reports chest discomfort. The discomfort is on the left side of the chest as a pressure/dull kind of discomfort with no radiation to the arms or neck or shoulders or back and no associated symptoms of dizziness or lightheadedness or any feeling of heart racing or fluttering or presyncope or syncope. The workup is unremarkable. The EKG showed sinus rhythm with no significant ST or T-wave abnormalities and enzymes came in to be unremarkable as well. He also underwent a chest x-ray showed no acute a bnormalities. He was seen by our service in 2020 where he underwent an echo showed normal left ventricle systolic function was no significant valvular abnormalities and also myocardial perfusion stress test came in to be unremarkable. Currently the patient is on isolation September 202022 The patient was evaluated this morning. He is chest pain-free. He is hemodynamically stable. From the cardiovascular standpoint of view, the patient potentially can be discharged home. Objective - Vital Signs Vital signs: Vital Signs Temp 97.5 F L 09/20/22 07:00 Pulse 88 09/20/22 07:00 Resp 16 09/20/22 07:00 BP 105/61 09/20/22 07:00 Pulse Ox 97 09/20/22 09:06 FiO2 Intake & Output 09/19/22 09/20/22 09/20/22 18:59 06:59 18:59 Intake Total 720 240 Balance 720 240 Intake: Oral 720 240 Other: Voiding Method Toilet # Voids 1 3 - Constitutional General appearance: Present: no acute distress - Labs CBC & Chem 7: 09/18/22 18:38 09/18/22 18:38 Labs: Microbiology - Last 24 Hours (Table) 09/18/22 18:38 Blood Culture - Preliminary Blood No Growth after 24 hours Assessment and Plan Assessment: Assessment COVID-19 infection Cough and congestion secondary to the above Chest discomfort History of stroke COPD Plan Acute coronary event was ruled out Stress test and echo from 2020 came in to be unremarkable Consider conservative medical approach unless there is a change in the clinical scenario The patient can be discharged
--- NOTE | 2022-09-20 11:00 | P.DS ---
Providers Date of admission: 09/18/22 20:54 Expected date of discharge: 09/20/22 Attending physician: Naun Andrews MD Consults: 09/19/22 00:55 Consult Physician Urgent Consulting Provider: Jeremiah Cortes Consult Reason/Comments: chest pain Do you want consulting provider notified?: Yes Primary care physician: [facility] Hospital Course: Discharge Diagnosis: Chest pain, acute coronary event ruled out. Troponins were negative, patient was evaluated by cardiology recommending conservative management at this time and for follow-up evaluation with cardiology when clear from current COVID-19 infection. Recommend patient continue cardiac medication regimen with aspirin, atorvastatin, and Plavix COVID-19 pneumonia in setting of chronic COPD. Patient maintaining oxygen sats without supplemental oxygen needed. Patient continues to have body aches, patient being discharged at this time. It was recommended for patient to start Paxlovid as today is day 5 of symptom onset and must be started within 5 days. Patient is medically stable to be discharged home at this time and instructed that It is important while taking Paxlovid to HOLD YOUR ATORVASTATIN AND FLOMAX for for the next 5 days as these medications CANNOT be taken together with Paxlovid. Once completed with the Paxlovid course you may resume taking your atorvastatin and flomax the following day. Chronic medical conditions: History of coronary artery disease with previous PR and stent placement. Recommend patient continue cardiac medication regimen with aspirin, atorvastatin, and Plavix and to follow up outpatient with cardiology in 1-2 weeks. Hospital Course: Patient is a very pleasant 72-year-old male with a PMH of COPD and coronary artery disease status post MIs who presented to the emergency room after a home positive COVID-19 test. Patient reports that over the past 2 days, he has been experiencing cough productive of thick white phlegm, rhinorrhea, and headaches. He also reports that he developed a left-sided chest pressure this a.m., 7 out of 10 of maximal intensity, constant, somewhat worsened with exertion, with no alleviating factors. He denied pleuritic nature to the pain and denied lower extremity swelling or pain. States that his chest discomfort resolved spontaneously after 2 or 3 hours and he was pain-free at the time of interview. Patient also reports attempting to use his COPD inhalers multiple times over the past 2 days with minimal relief. Reports that he contacted the [place] office earlier today who advised him to take the COVID-19 test, after which they subsequently advised him to go to the emergency room in light of his history of coronary artery disease with mild MIs as per the patient. Patient underwent a chest CTA which revealed findings consistent with prior asbestos exposure no evidence of PE. EKG had revealed sinus rhythm with T-wave flattening diffusely at 85 bpm as reviewed by me. Chest x-ray revealed scattered opacities bilaterally likely secondary to atypical pneumonia with other emphysematous changes. Laboratory evaluation was remarkable for troponin less than 0.012 with COVID-19 PCR positive and MCV 78.4. Upon chart review, it was noted the patient was admitted for chest discomfort on 08/16/21 during which time he underwent a nuclear stress test which was negative. Case discussed in detail with the ED physician patient was admitted under our services. Patient underwent a 2 night 3 day hospitalization stay. troponins were trended and all negative. He was evaluated by cardiology and an acute coronary event was ruled out. Cardiology recommending conservative management at this time and follow-up outpatient in their office once clear from current Covid 19 infection. Pt reported continued body aches/pains and generalized malaise from current Covid 19 infection, however he continued to maintain SpO2 greater than 90% on room air with and without ambulation and denies experiencing any further shortness of breath and/or chest pain. Patient is medically stable for discharge at this time. It was recommended for patient to start Paxlovid as today is day 5 of symptom onset and must be started within 5 days. Patient is medically stable to be discharged home at this time and instructed that It is important while taking Paxlovid to HOLD YOUR ATORVASTATIN AND FLOMAX for for the next 5 days as these medications CANNOT be taken together with Paxlovid. Once completed with the Paxlovid course you may resume taking your atorvastatin and flomax the following day. patient to follow up outpatient with PCP and cardiology. Physical exam: Vital signs reviewed and stable. General: Nontoxic, no distress and appears stated age. Derm: Skin warm and dry, normal coloration for ethnicity. Head: Atraumatic, normocephalic and symmetric. Eyes: EOMs intact, no lid lag, and anicteric sclera Mouth: no lip lesions, mucus membranes moist Cardiovascular: regular rate and rhythm with normal S1S2, no murmur, positive posterior tibial pulses bilaterally, and cap refill < 2 seconds. Lungs: Respirations even, regular, and unlabored on room air. Lungs diminished no rales, no rhonchi, no wheezing, and no accessory muscle usage. Abdominal: soft, nontender to palpation, no guarding, no appreciable organomegaly Ext: ROM intact. No gross muscle atrophy, no edema, no contractures Neuro: Speech clear, face symmetrical and CN II-XII grossly intact with no noted focal neuro deficits Psych: Alert and oriented to person, place, time, and situation. Appropriate and pleasant affect. A total of 36 minutes of time were spent preparing this complex discharge summary. Pt was discharged on 09/20/22 at 10:58 AM Patient Condition at Discharge: Stable Plan - Discharge Summary Discharge Rx Participant: No New Discharge Prescriptions: New Nirmatrelvir/Ritonavir [Paxlovid 300-100 mg Pack (Eua)] 300 mg PO 10 5 Days #10 each Continue Gabapentin [Neurontin] 300 mg PO TID Magnesium Oxide 400 mg PO BID FLUoxetine HCL [PROzac] 20 mg PO DAILY Cyclobenzaprine [Flexeril] 10 mg PO HS Tiotropium Br/Olodaterol HCl [Stiolto Respimat Inhal [place]] 2 puff INHALATION RT-DAILY HYDROcodone/APAP 7.5-325MG [[place] 7.5-325] 1 tab PO QID Mometasone Furoate [Asmanex Hfa] 2 puff INHALATION RT-DAILY Albuterol Nebulized [Ventolin Nebulized] 2.5 mg INHALATION RT-Q6H PRN #1 each PRN Reason: Shortness Of Breath Atorvastatin [Lipitor] 40 mg PO HS Tamsulosin [Flomax] 0.8 mg PO HS Sodium Bicarbonate Tab 650 mg PO BID Omeprazole 40 mg PO DAILY Naproxen 375 mg PO BID PRN PRN Reason: Pain Clopidogrel Bisulfate [Plavix] 75 mg PO DAILY Discharge Medication List Atorvastatin [Lipitor] 40 mg PO HS 08/16/21 [History] Clopidogrel Bisulfate [Plavix] 75 mg PO DAILY 08/16/21 [History] Cyclobenzaprine [Flexeril] 10 mg PO HS 08/16/21 [History] FLUoxetine HCL [PROzac] 20 mg PO DAILY 08/16/21 [History] Gabapentin [Neurontin] 300 mg PO TID 08/16/21 [History] Magnesium Oxide 400 mg PO BID 08/16/21 [History] Naproxen 375 mg PO BID PRN 08/16/21 [History] Omeprazole 40 mg PO DAILY 08/16/21 [History] Sodium Bicarbonate Tab 650 mg PO BID 08/16/21 [History] Tamsulosin [Flomax] 0.8 mg PO HS 08/16/21 [History] Tiotropium Br/Olodaterol HCl [Stiolto Respimat Inhal [place]] 2 puff INHALATION RT-DAILY 08/16/21 [History] HYDROcodone/APAP 7.5-325MG [[place] 7.5-325] 1 tab PO QID 09/18/22 [History] Mometasone Furoate [Asmanex Hfa] 2 puff INHALATION RT-DAILY 09/18/22 [History] Albuterol Nebulized [Ventolin Nebulized] 2.5 mg INHALATION RT-Q6H PRN #1 each 09/20/22 [Rx] Nirmatrelvir/Ritonavir [Paxlovid 300-100 mg Pack (Eua)] 300 mg PO 10 5 Days #10 each 09/20/22 [Rx] Follow up Appointment(s)/Referral(s): Jeremiah Cortes MD [STAFF PHYSICIAN] - 1 Week [facility] [Primary Care Provider] - 1-2 days Patient Instructions/Handouts: Coronavirus Disease 2019 (COVID-19), COVID-19 (Coronavirus Disease 2019) (DC), How to Recover from COVID-19 at Home (GEN), Social Distancing Guidelines for COVID-19 (DC) Activity/Diet/Wound Care/Special Instructions: Activity: As tolerated. Take breaks as needed. Diet: Heart healthy and carb consistent diet. Avoid salts, or foods with hidden salts such as canned or boxed foods and frozen dinners. Extra salt makes your heart work harder and traps the fluid in your body for longer. Special Instructions: Take all of your medications as directed and remember to keep all of your doctor's appointments and follow-up as needed. You are being started on Paxlovid for treatment of your Covid, it is important to start this medication today as it must be started within 5 days of symptom onset. This medication is given to prevent worsening of Covid infection. It is important while you are taking this medication to HOLD YOUR ATORVASTATIN AND FLOMAX for for the next 5 days as these medications CANNOT be taken together with Paxlovid. Once completed with the Paxlovid course you may resume taking your atorvastatin and flomax the following day. Thank you for allowing us to participate in your care, it was truly a pleasure having you for our patient!!! Discharge Disposition: HOME SELF-CARE
== END 2022-09-20 13:20 | disposition home or self-care (01) ==
LOC: EC 16:44 → 3SCARD 20:54 → INTOOBSV 20:54 → 6NMEDSUR 21:06 → UNDODISIN 09-20 13:20
PROVIDERS: ADMIT Internal Medicine; ATTEND Internal Medicine
DX: R07.89 Other chest pain (principal); U07.1 COVID-19; J12.82 Pneumonia due to coronavirus disease 2019; J44.1 Chronic obstructive pulmonary disease with (acute) exacerbation; I25.110 Atherosclerotic heart disease of native coronary artery with unstable angina pectoris; I12.9 Hypertensive chronic kidney disease with stage 1 through stage 4 chronic kidney disease, or unspecified chronic kidney disease; N18.30 Chronic kidney disease, stage 3 unspecified; F32.A Depression, unspecified; E78.5 Hyperlipidemia, unspecified; I25.2 Old myocardial infarction; Z86.73 Personal history of transient ischemic attack (TIA), and cerebral infarction without residual deficits; Z87.891 Personal history of nicotine dependence; Z95.5 Presence of coronary angioplasty implant and graft; Z79.02 Long term (current) use of antithrombotics/antiplatelets; Z79.899 Other long term (current) drug therapy; Z82.5 Family history of asthma and other chronic lower respiratory diseases
CPT/HCPCS: 96375; 96374; 99285; 36415; 94640 ×5; 94760; 93005; 85379; 83880; 80053; 83690; 83735; 84484 ×2; 85025; 85610; 85730; 87040; 87502; 84145; 87635; 71046; 71275; G0378 ×3; J2930; J8540; J1885; Q9967

== ENCOUNTER 2023-01-11 07:47 | Day surgery (SDC) | payer MEDICARE, OTHER ==
[2023-01-11] MEDS ORDERED: diazePAM 5 MG TAB PO STA (08:50)
[2023-01-11 09:27] VITALS: RESP 16; TEMP 97.8
[2023-01-11] MEDS ORDERED: HYDROcodone/APAP 5-325MG 1 EACH TAB PO PRN (10:45)
[2023-01-11 14:52] VITALS: PULSE 79
[2023-01-11 14:56] VITALS: BP 143/71
--- NOTE | 2023-01-12 13:03 | FL ---
EXAMINATION TYPE: FL myelogram lumbosacral DATE OF EXAM: 01/11/2023 11:05 AM CLINICAL INDICATION:Male, 72 years old with history of M48.07 SPINAL STENOSIS; COMPARISON: CT 03/28/2022, MR 04/28/2022 ATTENDING: Alek Childs D.O. FINDINGS: Informed consent was obtained including discussion of the risks and benefits. Timeout was taken per p rotocol. Real-time fluoroscopy was performed to localize the L5-S1 intervertebral space. The patient was prepped and draped. Under sterile technique with local anesthesia a 22-gauge spinal needle was a ttempted to be introduced into the arachnoid space with return of clear CSF. No CSF fluid was returne d for multiple attempts and the procedure was canceled. Total fluoroscopy time was 5 minutes 23 seconds Total fluoroscopic images 0. Radiographs taken: 19 IMPRESSION: Unsuccessful lumbar puncture.
== END 2023-01-11 14:31 | disposition home or self-care (01) ==
LOC: RADPROMAIN 07:47
PROVIDERS: ATTEND Radiology Body Imaging
DX: M48.07 Spinal stenosis, lumbosacral region (principal)
CPT/HCPCS: 62304; J2001; Q9967

== ENCOUNTER → 2023-01-18 | Outpatient (CLI) | payer OTHER ==
[2023-01-18 11:54] LABS: Anisocytosis Slight; MCH 24.1 pg (25.0-35.0); MCHC 32.2 g/dL (31.0-37.0); MCV 74.7 fL (80.0-100.0); Mean Platelet Volume 6.7; Microcytosis Slight; Platelet Count 361 k/uL (150-450); RBC 4.55 m/uL (4.30-5.90); RDW 16.3 % (11.5-15.5); WBC 17.9 k/uL (3.8-10.6)
[2023-01-18 12:15] LABS: Prothrombin Time 10.6 sec (9.0-12.0)
== END | disposition home or self-care (01) ==
LOC: LABWHC1 10:52
PROVIDERS: ATTEND Radiology Vascular & Interventional Radiology
DX: Z01.812 Encounter for preprocedural laboratory examination (principal); M48.062 Spinal stenosis, lumbar region with neurogenic claudication
CPT/HCPCS: 36415; 85027; 85610

== ENCOUNTER 2023-01-19 16:42 | Emergency (ER) | payer OTHER ==
[2023-01-19 17:01] VITALS: TEMP 98.6
--- NOTE | 2023-01-19 17:42 | XR ---
EXAMINATION TYPE: XR chest 2V DATE OF EXAM: 01/19/2023 COMPARISON: CTA chest and chest x-ray September 18, 2022 HISTORY: Difficulty in breathing. Left-sided chest pain. TECHNIQUE: Frontal and lateral views of the chest are obtained. FINDINGS: Background chronic emphysematous change with moderate to severe right greater than left bi apical pleural/parenchymal scarring is redemonstrated. Scattered areas of parenchymal scarring bilat erally are again seen. No suspicious new focal airspace opacity, pleural effusion, or pneumothorax. T he cardiac silhouette size is stable and within normal limits. The osseous structures are intact. IMPRESSION: Chronic emphysematous and pulmonary fibrotic change bilaterally without suspicious new a cute pulmonary process.
[2023-01-19 17:43] LABS: Anisocytosis Slight; Basophils % (A) 0 %; Eosinophils # (A) 0.3 k/uL (0-0.7); Eosinophils % (A) 1 %; HCT 29.5 % (39.0-53.0); HGB 9.7 gm/dL (13.0-17.5); Lymphocytes # (A) 2.3 k/uL (1.0-4.8); Lymphocytes % (A) 11 %; MCH 24.2 pg (25.0-35.0); MCHC 32.9 g/dL (31.0-37.0); MCV 73.6 fL (80.0-100.0); Mean Platelet Volume 6.6; Microcytosis Moderate; Monocytes # (A) 0.8 k/uL (0-1.0); Monocytes % (A) 4 %; Neutrophils % (A) 81 %; Platelet Count 299 k/uL (150-450); RBC 4.01 m/uL (4.30-5.90); RDW 16.5 % (11.5-15.5); WBC 19.9 k/uL (3.8-10.6)
[2023-01-19 17:55] LABS: Albumin 3.7 g/dL (3.5-5.0); Calcium 8.3 mg/dL (8.4-10.2)
[2023-01-19 17:56] LABS: INR 1.1 (<1.2); Partial Thromboplastin Time 27.2 sec (22.0-30.0); Prothrombin Time 11.3 sec (9.0-12.0)
[2023-01-19] MEDS ORDERED: SODIUM CHLORIDE 0.9% 1,000 ML IV ONE (18:19)
[2023-01-19] MEDS ORDERED: MORPHINE SULFATE 4 MG/ML SYRINGE IV STA (18:19)
[2023-01-19] MEDS ORDERED: IPRATROPIUM-ALBUTEROL 3 ML NEB INHALATION STA (18:20)
[2023-01-19] MEDS ORDERED: predniSONE 20 MG TAB PO STA (18:20)
[2023-01-19] MEDS ORDERED: AZITHROMYCIN 500 MG TAB PO STA (18:20)
--- NOTE | 2023-01-19 18:22 | ED ---
SOB HPI - General Chief Complaint: Shortness of Breath Stated Complaint: Low O2/Chest pain Time Seen by Provider: 01/19/23 17:57 Source: patient Mode of arrival: ambulatory Limitations: no limitations - History of Present Illness MD Complaint: shortness of breath, cough, chest pain -: days(s) Severity: moderate Quality: aching Improves With: rest Worsens With: coughing Known History Of: COPD Associated Symptoms: chest pain, cough, sputum production Treatments Prior to Arrival: none - Related Data Home Oxygen Therapy: No Home Medications Medication Instructions Recorded Confirmed Atorvastatin [Lipitor] 40 mg PO HS 08/16/21 01/19/23 Clopidogrel Bisulfate [Plavix] 75 mg PO DAILY 08/16/21 01/19/23 Cyclobenzaprine [Flexeril] 10 mg PO TID PRN 08/16/21 01/19/23 FLUoxetine HCL [PROzac] 20 mg PO DAILY 08/16/21 01/19/23 Gabapentin [Neurontin] 300 mg PO TID 08/16/21 01/19/23 Naproxen 375 mg PO BID PRN 08/16/21 01/19/23 Omeprazole 40 mg PO DAILY 08/16/21 01/19/23 Sodium Bicarbonate Tab 650 mg PO BID 08/16/21 01/19/23 Tamsulosin [Flomax] 0.8 mg PO HS 08/16/21 01/19/23 HYDROcodone/APAP 7.5-325MG [[place] 1 tab PO QID PRN 09/18/22 01/19/23 7.5-325] Albuterol Inhaler [Ventolin Hfa 2 puff INHALATION RT-Q6H PRN 01/19/23 01/19/23 Inhaler] Fluocinonide 0.05% [Lidex 0.05% 1 applic TOPICAL BID PRN 01/19/23 01/19/23 cream] Magnesium 420mg 420 mg PO BID 01/19/23 01/19/23 Mometasone Furoate [Asmanex 200 2 puff INHALATION RT-BID 01/19/23 01/19/23 MCG Hfa] Tiotropium 2.5 Mcg/Puff [Spiriva 2 puff INHALATION RT-DAILY 01/19/23 01/19/23 Respimat 2.5 Mcg] Previous Rx's Medication Instructions Recorded Albuterol Nebulized [Ventolin 2.5 mg INHALATION RT-Q6H PRN #1 09/20/22 Nebulized] each Azithromycin [Zithromax] 0 mg PO DIRECTED #6 tab 01/19/23 Promethazine [Phenergan] 25 mg PO Q6HR PRN #12 tablet 01/19/23 Allergies Allergy/AdvReac Type Severity Reaction Status Date / Time No Known Allergies Allergy Verified 01/19/23 21:00 Review of Systems ROS Statement: Those systems with pertinent positive or pertinent negative responses have been documented in the HPI. ROS Other: All systems not noted in ROS Statement are negative. Constitutional: Denies: fever, chills, weakness Respiratory: Reports: cough, dyspnea, wheezes, hemoptysis Cardiovascular: Reports: chest pain. Denies: palpitations, orthopnea, edema, syncope Gastrointestinal: Denies: abdominal pain, nausea, vomiting, diarrhea Genitourinary: Denies: dysuria, hematuria Musculoskeletal: Denies: back pain Skin: Denies: rash Neurological: Denies: headache, weakness Past Medical History Past Medical History: COPD, CVA/TIA, Hypertension, Myocardial Infarction ([place]) Additional Past Medical History / Comment(s): stage 3 kidney failure, heart attack at 30, stroke x 3 Last Myocardial Infarction Date:: unknown History of Any Multi-Drug Resistant Organisms: None Reported Past Surgical History: Back Surgery, Orthopedic Surgery Additional Past Surgical History / Comment(s): back surgery, rods and spacers placed 05/09. left hand surgery, myelogram Past Anesthesia/Blood Transfusion Reactions: No Reported Reaction Past Psychological History: Depression Smoking Status: Former smoker Past Alcohol Use History: None Reported Past Drug Use History: None Reported - Past Family History Mother Family Medical History: Cancer Family Family Medical History: COPD Additional Family Medical History / Comment(s): brother 2 yrs ago from lung cancer. General Exam Limitations: no limitations General appearance: alert, in no apparent distress Head exam: Present: atraumatic Eye exam: Present: normal appearance Respiratory exam: Present: wheezes, chest wall tenderness. Absent: respiratory distress, rales, rhonchi, stridor, accessory muscle use Cardiovascular Exam: Present: regular rate, normal rhythm, normal heart sounds. Absent: systolic murmur, diastolic murmur, rubs, gallop GI/Abdominal exam: Present: soft. Absent: distended, tenderness, guarding, rebo und, rigid, mass Extremities exam: Present: normal inspection, normal capillary refill. Absent: pedal edema, calf tenderness Back exam: Present: normal inspection. Absent: CVA tenderness (R), CVA tenderness (L) Neurological exam: Present: alert Skin exam: Present: warm, dry, intact, normal color. Absent: rash Course Vital Signs 01/19/23 01/19/23 01/19/23 16:57 19:26 19:34 Temperature 98.6 F Pulse Rate 85 64 76 Respiratory 18 Rate Blood Pressure 104/62 O2 Sat by Pulse 100 Oximetry 01/19/23 21:15 Temperature Pulse Rate 91 Respiratory 20 Rate Blood Pressure 146/72 O2 Sat by Pulse 100 Oximetry Medical Decision Making - Medical Decision Making This patient is 72-year-old man presenting with what does appear to be based on the patient's history and physical results COPD exacerbation. He is feeling somewhat better after starting treatment here. He does have CT myelogram scheduled in [place] for January 20 and would like to keep that. We discussed the appropriate further care and follow-up as well as return parameters. The patient had chest x-ray which I interpreted as not showing acute infiltrate, congestive heart failure, or pneumothorax. Was pt. sent in by a medical professional or institution (, PA, ROTARY DUMP OPERATOR, urgent care, hospital, or fdc...) When possible be specific @ -[No] Did you speak to anyone other than the patient for history (EMS, parent, family, police, friend...)? What history was obtained from this source @ -[No] Did you review nursing and triage notes (agree or disagree)? Why? @ -[I reviewed and agree with nursing and triage notes] Were old charts reviewed (outside hosp., previous admission, EMS record, old EKG, old radiological studies, urgent care reports/EKG's, fdc records)? Report findings @ -[No old charts were reviewed] Differential Diagnosis (chest pain, altered mental status, abdominal pain women, abdominal pain men, vaginal bleeding, weakness, fever, dyspnea, syncope, headache, dizziness, GI bleed, back pain, seizure, CVA, palpatations, mental health, musculoskeletal)? @ -[Differential Dyspnea: Coronary syndrome, arrhythmia, tamponade, asthma, COPD, pulmonary embolism, pneumonia, pneumothorax, pulmonary effusion, anaphylaxis, diabetic ketoacidosis, flailed chest, pulmonary contusion, diaphragmatic rupture, anemia, neuromuscular, this is not meant to be an all-inclusive list. EKG interpreted by me (3pts min.). @ -[As above] X-rays interpreted by me (1pt min.). @ -[As above] CT interpreted by me (1pt min.). @ -[None done] U/S interpreted by me (1pt. min.). @ -[None done] What testing was considered but not performed or refused? (CT, X-rays, U/S, labs)? Why? @ -[None] What meds were considered but not given or refused? Why? @ -[None] Did you discuss the management of the patient with other professionals (professionals i.e. , PA, ROTARY DUMP OPERATOR, lab, RT, psych nurse, social work manager, flexo press operator, teacher, electronic intelligence officer, major case detective)? Give summary @ -[No] Was smoking cessation discussed for >3mins.? @ -[No] Was critical care preformed (if so, how long)? @ -[No] Were there social determinants of health that impacted care today? How? (Homelessness, low income, unemployed, alcoholism, drug addiction, transportation, low edu. Level, literacy, decrease access to med. care, skilled nursing, rehab)? @ -[No] Was there de-escalation of care discussed even if they declined (Discuss DNR or withdrawal of care, Hospice)? DNR status @ -[No] What co-morbidities impacted this encounter? (DM, HTN, Smoking, COPD, CAD, Cancer, CVA, ARF, Chemo, Hep., AIDS, mental health diagnosis, sleep apnea, morbid obesity)? @ -[None] Was patient admitted / discharged? Hospital course, mention meds given and route, prescriptions, significant lab abnormalities, going to OR and other pertinent info. @ -[Discharged Undiagnosed new problem with uncertain prognosis? @ -[No] Drug Therapy requiring intensive monitoring for toxicity (Heparin, Nitro, Insulin, Cardizem)? @ -[No] Were any procedures done? @ -[No] Diagnosis/symptom? @ -[Acute exacerbation of COPD Acute, or Chronic, or Acute on Chronic? @ -[default] Uncomplicated (without systemic symptoms) or Complicated (systemic symptoms)? @ -[uncomplicated Side effects of treatment? @ -[No] Exacerbation, Progression, or Severe Exacerbation? @ -[Exacerbation Poses a threat to life or bodily function? How? (Chest pain, [place], [place], pneumonia, PE, COPD, DKA, ARF, appy, cholecystitis, CVA, Diverticulitis, Homicidal, Suicidal, threat to staff... and all critical care pts) @ -[Yes, untreated COPD can progress to respiratory failure and - Lab Data Result diagrams: 01/19/23 17:17 01/19/23 17:17 Lab Results 01/19/23 01/19/23 01/19/23 Range/Units 17:17 17:17 17:17 WBC 19.9 H (3.8-10.6) k/uL RBC 4.01 L (4.30-5.90) m/uL Hgb 9.7 L (13.0-17.5) gm/dL Hct 29.5 L (39.0-53.0) % MCV 73.6 L (80.0-100.0) fL MCH 24.2 L (25.0-35.0) pg MCHC 32.9 (31.0-37.0) g/dL RDW 16.5 H (11.5-15.5) % Plt Count 299 (150-450) k/uL MPV 6.6 Neutrophils % 81 % Lymphocytes % 11 % Monocytes % 4 % Eosinophils % 1 % Basophils % 0 % Neutrophils # 16.0 H (1.3-7.7) k/uL Lymphocytes # 2.3 (1.0-4.8) k/uL Monocytes # 0.8 (0-1.0) k/uL Eosinophils # 0.3 (0-0.7) k/uL Basophils # 0.0 (0-0.2) k/uL Anisocytosis Slight Microcytosis Moderate PT 11.3 (9.0-12.0) sec INR 1.1 (<1.2) APTT 27.2 (22.0-30.0) sec Sodium 130 L (137-145) mmol/L Potassium 4.0 (3.5-5.1) mmol/L Chloride 94 L (98-107) mmol/L Carbon Dioxide 22 (22-30) mmol/L Anion Gap 14 mmol/L BUN 16 (9-20) mg/dL Creatinine 1.63 H (0.66-1.25) mg/dL Est GFR (CKD-EPI)AfAm 48 (>60 ml/min/1.73 sqM) Est GFR (CKD-EPI)NonAf 42 (>60 ml/min/1.73 sqM) Glucose 69 L (74-99) mg/dL Calcium 8.3 L (8.4-10.2) mg/dL Total Bilirubin 1.0 (0.2-1.3) mg/dL AST 27 (17-59) U/L ALT 22 (4-49) U/L Alkaline Phosphatase 168 H (38-126) U/L Troponin I (0.000-0.034) ng/mL NT-Pro-B Natriuret Pep pg/mL Total Protein 7.0 (6.3-8.2) g/dL Albumin 3.7 (3.5-5.0) g/dL Influenza Type A (PCR) (Not Detectd) Influenza Type B (PCR) (Not Detectd) RSV (PCR) (Not Detectd) SARS-CoV-2 (PCR) (Not Detectd) 01/19/23 01/19/23 01/19/23 Range/Units 17:17 17:17 19:32 WBC (3.8-10.6) k/uL RBC (4.30-5.90) m/uL Hgb (13.0-17.5) gm/dL Hct (39.0-53.0) % MCV (80.0-100.0) fL MCH (25.0-35.0) pg MCHC (31.0-37.0) g/dL RDW (11.5-15.5) % Plt Count (150-450) k/uL MPV Neutrophils % % Lymphocytes % % Monocytes % % Eosinophils % % Basophils % % Neutrophils # (1.3-7.7) k/uL Lymphocytes # (1.0-4.8) k/uL Monocytes # (0-1.0) k/uL Eosinophils # (0-0.7) k/uL Basophils # (0-0.2) k/uL Anisocytosis Microcytosis PT (9.0-12.0) sec INR (<1.2) APTT (22.0-30.0) sec Sodium (137-145) mmol/L Potassium (3.5-5.1) mmol/L Chloride (98-107) mmol/L Carbon Dioxide (22-30) mmol/L Anion Gap mmol/L BUN (9-20) mg/dL Creatinine (0.66-1.25) mg/dL Est GFR (CKD-EPI)AfAm (>60 ml/min/1.73 sqM) Est GFR (CKD-EPI)NonAf (>60 ml/min/1.73 sqM) Glucose (74-99) mg/dL Calcium (8.4-10.2) mg/dL Total Bilirubin (0.2-1.3) mg/dL AST (17-59) U/L ALT (4-49) U/L Alkaline Phosphatase (38-126) U/L Troponin I <0.012 (0.000-0.034) ng/mL NT-Pro-B Natriuret Pep 313 pg/mL Total Protein (6.3-8.2) g/dL Albumin (3.5-5.0) g/dL Influenza Type A (PCR) Not Detected (Not Detectd) Influenza Type B (PCR) Not Detected (Not Detectd) RSV (PCR) Not Detected (Not Detectd) SARS-CoV-2 (PCR) Not Detected (Not Detectd) - EKG Data -: EKG Interpreted by [place] EKG shows normal: sinus rhythm, axis (Normal), intervals (Normal), QRS complexes (Normal) Rate: normal (Rate 86 bpm) Interpretation: nonspecific ST-T wave changes Disposition Clinical Impression: COPD exacerbation Disposition: HOME SELF-CARE Condition: Good Instructions (If sedation given, give patient instructions): Chronic Bronchitis (ED) Prescriptions: Promethazine [Phenergan] 25 mg PO Q6HR PRN #12 tablet PRN Reason: Vomiting Azithromycin [Zithromax] 0 mg PO DIRECTED #6 tab Is patient prescribed a controlled substance at d/c from ED?: No Referrals: SUHAS CHAVARRIA [Primary Care Provider] - 1-2 days
[2023-01-19 21:15] VITALS: BP 146/72; PULSE 91; RESP 20
== END 2023-01-19 22:01 | disposition home or self-care (01) ==
LOC: EC 16:42
DX: J44.1 Chronic obstructive pulmonary disease with (acute) exacerbation (principal); I10 Essential (primary) hypertension; I25.2 Old myocardial infarction; Z86.73 Personal history of transient ischemic attack (TIA), and cerebral infarction without residual deficits; F32.A Depression, unspecified; Z87.891 Personal history of nicotine dependence; Z79.51 Long term (current) use of inhaled steroids; Z79.899 Other long term (current) drug therapy; Z20.822 Contact with and (suspected) exposure to COVID-19
CPT/HCPCS: 36415; 94640; 93005; 83880; 80053; 84484; 85025; 85610; 85730; 87636; 71046; 99285; 96374; 96361; J2270; J7512

== ENCOUNTER 2023-02-14 12:09 | Emergency (ER) | payer OTHER, MEDICARE ==
[2023-02-14 12:12] VITALS: TEMP 97.5
[2023-02-14] MEDS ORDERED: LIDOCAINE 1% INJ 10MG/ML (30 ML VIAL-PF) SQ ONE (12:21)
--- NOTE | 2023-02-14 12:26 | ED ---
General Adult HPI - General Chief complaint: Wound/Laceration Stated complaint: Right hand laceration Time Seen by Provider: 02/14/23 12:16 Source: patient, RN notes reviewed Mode of arrival: ambulatory Limitations: no limitations - History of Present Illness Initial comments: 72-year-old male presents to the emergency department with chief complaint of right hand laceration. He states that he was cutting wood on a saw and a piece of wood started to fall and he attempted to catch it and it the dorsum of his hand on the saw blade. there is about a 3 cm laceration to the dorsum of his hand with exposed tendon with no apparent injury or foreign body. He reports full range of motion and normal sensation in his right hand. He states that he has had his tetanus shot within the last year. Medical history includes COPD, hyperlipidemia. - Related Data Home Medications Medication Instructions Recorded Confirmed Atorvastatin [Lipitor] 40 mg PO HS 08/16/21 01/19/23 Clopidogrel Bisulfate [Plavix] 75 mg PO DAILY 08/16/21 01/19/23 Cyclobenzaprine [Flexeril] 10 mg PO TID PRN 08/16/21 01/19/23 FLUoxetine HCL [PROzac] 20 mg PO DAILY 08/16/21 01/19/23 Gabapentin [Neurontin] 300 mg PO TID 08/16/21 01/19/23 Naproxen 375 mg PO BID PRN 08/16/21 01/19/23 Omeprazole 40 mg PO DAILY 08/16/21 01/19/23 Sodium Bicarbonate Tab 650 mg PO BID 08/16/21 01/19/23 Tamsulosin [Flomax] 0.8 mg PO HS 08/16/21 01/19/23 HYDROcodone/APAP 7.5-325MG [[place] 1 tab PO QID PRN 09/18/22 01/19/23 7.5-325] Albuterol Inhaler [Ventolin Hfa 2 puff INHALATION RT-Q6H PRN 01/19/23 01/19/23 Inhaler] Fluocinonide 0.05% [Lidex 0.05% 1 applic TOPICAL BID PRN 01/19/23 01/19/23 cream] Magnesium 420mg 420 mg PO BID 01/19/23 01/19/23 Mometasone Furoate [Asmanex 200 2 puff INHALATION RT-BID 01/19/23 01/19/23 MCG Hfa] Tiotropium 2.5 Mcg/Puff [Spiriva 2 puff INHALATION RT-DAILY 01/19/23 01/19/23 Respimat 2.5 Mcg] Previous Rx's Medication Instructions Recorded Albuterol Nebulized [Ventolin 2.5 mg INHALATION RT-Q6H PRN #1 09/20/22 Nebulized] each Azithromycin [Zithromax] 0 mg PO DIRECTED #6 tab 01/19/23 Promethazine [Phenergan] 25 mg PO Q6HR PRN #12 tablet 01/19/23 clindamycin HCL 300 mg PO QID #28 cap 02/14/23 Allergies Allergy/AdvReac Type Severity Reaction Status Date / Time No Known Allergies Allergy Verified 02/14/23 12:12 Review of Systems ROS Statement: Those systems with pertinent positive or pertinent negative responses have been documented in the HPI. ROS Other: All systems not noted in ROS Statement are negative. Past Medical History Past Medical History: COPD, CVA/TIA, Hypertension, Myocardial Infarction ([place]) Additional Past Medical History / Comment(s): stage 3 kidney failure, heart attack at 30, stroke x 3 Last Myocardial Infarction Date:: unknown History of Any Multi-Drug Resistant Organisms: None Reported Past Surgical History: Back Surgery, Orthopedic Surgery Additional Past Surgical History / Comment(s): back surgery, rods and spacers placed 05/09. left hand surgery, myelogram Past Anesthesia/Blood Transfusion Reactions: No Reported Reaction Past Psychological History: Depression Smoking Status: Former smoker Past Alcohol Use History: None Reported Past Drug Use History: None Reported - Past Family History Mother Family Medical History: Cancer Family Family Medical History: COPD Additional Family Medical History / Comment(s): brother 2 yrs ago from lung cancer. General Exam Limitations: no limitations General appearance: alert, in no apparent distress Head exam: Present: atraumatic, normocephalic, normal inspection Eye exam: Present: normal appearance ENT exam: Present: normal exam, mucous membranes moist Neck exam: Present: normal inspection. Absent: tenderness, meningismus, lymphadenopathy Respiratory exam: Present: wheezes (Bilateral, history of COPD) Cardiovascular Exam: Present: regular rate, normal rhythm, normal heart sounds. Absent: systolic murmur, diastolic murmur, rubs, gallop, clicks Extremities exam: Present: other (3 cm laceration to the dorsum of the right hand with bone and tendon exposure with no obvious tendon laceration or foreign body, patient has normal range of motion and strength in all 5 digits, normal sensation, normal capillary refill, radial pulses 2+) Neurological exam: Present: alert, oriented X3 Psychiatric exam: Present: normal affect, normal mood Skin exam: Present: warm, dry, normal color, other (There is having a laceration to the dorsum of the right hand between digits 3 and 4) Course Vital Signs 02/14/23 02/14/23 02/14/23 12:10 13:03 13:44 Temperature 97.5 F L Pulse Rate 98 82 90 Respiratory 20 18 18 Rate Blood Pressure 149/66 121/73 134/82 O2 Sat by Pulse 97 97 99 Oximetry Procedures - Laceration Laceration #1 Consent Obtained: verbal consent Indication: laceration Site: hand (Dorsum) Size (cm): 2 Description: linear Depth: simple, single layer (Tendon exposed but does not appear to be injured) Anesthetic Used: lidocaine 1% Anesthesia Technique: local infiltration Pre-repair: wound explored, irrigated extensively Type of Sutures: other (Monofilament) Size of Sutures: 4-0 Number of Sutures: 5 Technique: simple, interrupted Patient Tolerated Procedure: well, no complications Medical Decision Making - Medical Decision Making Was pt. sent in by a medical professional or institution ([facility], INFORMATION TECH, urgent care, hospital, or fpc...) When possible be specific @ -No Did you speak to anyone other than the patient for history (EMS, parent, family, police, friend...)? What history was obtained from this source @ -No Did you review nursing and triage notes (agree or disagree)? Why? @ -I reviewed and agree with nursing and triage notes Were old charts reviewed (outside hosp., previous admission, EMS record, old EKG, old radiological studies, urgent care reports/EKG's, fpc records)? Report findings @ -No old charts were reviewed Differential Diagnosis (chest pain, altered mental status, abdominal pain women, abdominal pain men, vaginal bleeding, weakness, fever, dyspnea, syncope, headache, dizziness, GI bleed, back pain, seizure, CVA, palpatations, mental health, musculoskeletal)? @ -Differential Musculoskeletal Muscular strain, contusion, ligament sprain, fracture, arthritis, septic arthritis, bursitis, cellulitis, muscle spasm, nerve compression, DVT, arterial occlusion, herpes zoster, electrolyte abnormality, tumor.... This is not meant to be in all inclusive list EKG interpreted by me (3pts min.). @ -None X-rays interpreted by me (1pt min.). @ -X-ray of the hand was obtained which showed no acute fracture or radiopaque foreign body CT interpreted by me (1pt min.). @ -None done U/S interpreted by me (1pt. min.). @ -None done What testing was considered but not performed or refused? (CT, X-rays, U/S, labs)? Why? @ -None What meds were considered but not given or refused? Why? @ -None Did you discuss the management of the patient with other professionals (professionals i.e. , PA, INFORMATION TECH, lab, RT, psych nurse, social work nurse, drier feeder, teacher, police or patrol park officer, corrections caseworker)? Give summary @ -No Was smoking cessation discussed for >3mins.? @ -No Was critical care preformed (if so, how long)? @ -No Were there social determinants of health that impacted care today? How? (Homelessness, low income, unemployed, alcoholism, drug addiction, transportation, low edu. Level, literacy, decrease access to med. care, senior care, rehab)? @ -No Was there de-escalation of care discussed even if they declined (Discuss DNR or withdrawal of care, Hospice)? DNR status @ -No What co-morbidities impacted this encounter? (DM, HTN, Smoking, COPD, CAD, Cancer, CVA, ARF, Chemo, Hep., AIDS, mental health diagnosis, sleep apnea, morbid obesity)? @ -None Was patient admitted / discharged? Hospital course, mention meds given and route, prescriptions, significant lab abnormalities, going to OR and other pertinent info. @ -Discharged. Patient presented to emergency department with chief complaint of hand laceration after his hand hit the saw blade. X-ray was obtained which showed no acute fracture or radiopaque foreign body. The wound was extensively irrigated and 5 simple interrupted sutures were placed. Patient was given antibiotics based on the location of the injury. Patient advised to take advised to completion and follow-up with his primary care provider. Patient discharged in stable condition. Case discussed with my attending, Dr. Davis Undiagnosed new problem with uncertain prognosis? @ -No Drug Therapy requiring intensive monitoring for toxicity (Heparin, Nitro, Insulin, Cardizem)? @ -No Were any procedures done? @ -Yes laceration repair Diagnosis/symptom? @ -laceration Acute, or Chronic, or Acute on Chronic? @ -acute Uncomplicated (without systemic symptoms) or Complicated (systemic symptoms)? @ -uncomplicated Side effects of treatment? @ -No Exacerbation, Progression, or Severe Exacerbation? @ -No Poses a threat to life or bodily function? How? (Chest pain, [place], [place], pneumonia, PE, COPD, DKA, ARF, appy, cholecystitis, CVA, Diverticulitis, Homicidal, Suicidal, threat to staff... and all critical care pts) @ -No Disposition Clinical Impression: Laceration Disposition: HOME SELF-CARE Condition: Stable Instructions (If sedation given, give patient instructions): Care For Your Stitches (ED) Additional Instructions: Take antibiotics to completion. Please follow up with your primary care provider next week. Please return to the emergency department for new or worsening symptoms. Prescriptions: clindamycin HCL 300 mg PO QID #28 cap Is patient prescribed a controlled substance at d/c from ED?: No Referrals: SUHAS CHAVARRIA [Primary Care Provider] - 1-2 days Time of Disposition: 13:31
--- NOTE | 2023-02-14 12:51 | XR ---
EXAMINATION TYPE: XR hand complete RT DATE OF EXAM: 02/14/2023 12:37 PM INDICATION: Patient age:Male; 72 years old; Reason for study: lac; COMPARISON: None TECHNIQUE: Frontal, lateral and oblique views of the right hand were obtained. FINDINGS: Normal alignment of the visualized joints. No acute osseous pathology is identified. No la ceration definitively visualized. Lucent area involving the base of the first digit proximal phalanx abuts the joint space. No evidence radiopaque foreign body. IMPRESSION: 1. No acute osseous pathology. 2. Soft tissue defect not well visualized No evidence radiopaque foreign body. 3. Lucent area involving the right first digit proximal phalanx base. This can be further evaluated with MRI if clinically warranted could be secondary to degeneration. Other etiologies remain possible .
[2023-02-14 13:08] VITALS: RESP 18
[2023-02-14 13:46] VITALS: BP 134/82; PULSE 90
== END 2023-02-14 13:46 | disposition home or self-care (01) ==
LOC: EC 12:09
DX: S61.411A Laceration without foreign body of right hand, initial encounter (principal); I10 Essential (primary) hypertension; I25.2 Old myocardial infarction; J44.9 Chronic obstructive pulmonary disease, unspecified; Z79.899 Other long term (current) drug therapy; Z87.891 Personal history of nicotine dependence; W18.30XA Fall on same level, unspecified, initial encounter
CPT/HCPCS: 73130; 99283; 12001; J2001

== ENCOUNTER → 2023-03-02 | Outpatient (CLI) | payer OTHER, MEDICARE ==
--- NOTE | 2023-03-02 13:03 | XR ---
EXAMINATION TYPE: XR chest 2V DATE OF EXAM: 03/02/2023 12:53 PM COMPARISON: Chest radiographs from 01/19/23, CTA chest 09/18/2022 TECHNIQUE: XR chest 2V Frontal and lateral views of the chest. CLINICAL INDICATION:Male, 72 years old with history of [id number], [id number]; FINDINGS: Lungs/Pleura: There is no evidence of pleural effusion, focal consolidation, or pneumothorax. Biapica l pleural-parenchymal scarring with right greater than left. Hyperinflation. Pulmonary vascularity: Unremarkable. Heart/mediastinum: Cardiomediastinal silhouette is unremarkable. Atherosclerotic calcifications are seen in the aorta. Musculoskeletal: No acute osseous pathology. IMPRESSION: Chronic emphysematous and pulmonary fibrotic prior changes bilaterally without evidence for acute pro cess.
== END | disposition home or self-care (01) ==
LOC: RADXRMAIN 12:32
PROVIDERS: ATTEND Neurological Surgery
DX: J43.9 Emphysema, unspecified (principal); J84.10 Pulmonary fibrosis, unspecified; M48.061 Spinal stenosis, lumbar region without neurogenic claudication
CPT/HCPCS: 71046

== ENCOUNTER 2023-03-09 14:17 | Emergency (ER) | payer OTHER, MEDICARE ==
--- NOTE | 2023-03-09 16:32 | XR ---
EXAMINATION TYPE: XR knee complete LT DATE OF EXAM: 03/09/2023 4:24 PM INDICATION: Patient age:Male; 72 years old; Reason for study: injury; COMPARISON: None. TECHNIQUE: The Left knee(s) was examined in Frontal, lateral and oblique projections. FINDINGS: No evidence of any acute osseous pathology, soft tissue swelling, or joint effusion is no latrice. Tricompartmental osteophyte formation involving the femoral condyles, tibial plateau and patella. Mi ld joint space narrowing. IMPRESSION: 1. No acute osseous pathology. 2. Mild tricompartmental osteoarthritic changes.
--- NOTE | 2023-03-09 16:51 | ED ---
Lower Extremity Injury HPI - General Chief Complaint: Extremity Injury, Lower Stated Complaint: Lt knee pain Time Seen by Provider: 03/09/23 16:04 Source: patient Mode of arrival: wheelchair Limitations: no limitations - History of Present Illness Initial Comments: Patient is a 72-year-old male who presents to the emergency department for left knee pain. Patient states he twisted his knee about 7 days ago after he was kneeling down in the garage. States the pain is in his knee cap. Patient states he talked to his youth development specialist who recommended he get an x-ray of the knee. Patient has pain in his knee significantly worsened with ambulation. It improves with Thorp which he is currently prescribed for his back pain. - Related Data Home Medications Medication Instructions Recorded Confirmed Atorvastatin [Lipitor] 40 mg PO HS 08/16/21 01/19/23 Clopidogrel Bisulfate [Plavix] 75 mg PO DAILY 08/16/21 01/19/23 Cyclobenzaprine [Flexeril] 10 mg PO TID PRN 08/16/21 01/19/23 FLUoxetine HCL [PROzac] 20 mg PO DAILY 08/16/21 01/19/23 Gabapentin [Neurontin] 300 mg PO TID 08/16/21 01/19/23 Naproxen 375 mg PO BID PRN 08/16/21 01/19/23 Omeprazole 40 mg PO DAILY 08/16/21 01/19/23 Sodium Bicarbonate Tab 650 mg PO BID 08/16/21 01/19/23 Tamsulosin [Flomax] 0.8 mg PO HS 08/16/21 01/19/23 HYDROcodone/APAP 7.5-325MG [[place] 1 tab PO QID PRN 09/18/22 01/19/23 7.5-325] Albuterol Inhaler [Ventolin Hfa 2 puff INHALATION RT-Q6H PRN 01/19/23 01/19/23 Inhaler] Fluocinonide 0.05% [Lidex 0.05% 1 applic TOPICAL BID PRN 01/19/23 01/19/23 cream] Magnesium 420mg 420 mg PO BID 01/19/23 01/19/23 Mometasone Furoate [Asmanex 200 2 puff INHALATION RT-BID 01/19/23 01/19/23 MCG Hfa] Tiotropium 2.5 Mcg/Puff [Spiriva 2 puff INHALATION RT-DAILY 01/19/23 01/19/23 Respimat 2.5 Mcg] Previous Rx's Medication Instructions Recorded Albuterol Nebulized [Ventolin 2.5 mg INHALATION RT-Q6H PRN #1 09/20/22 Nebulized] each Azithromycin [Zithromax] 0 mg PO DIRECTED #6 tab 01/19/23 Promethazine [Phenergan] 25 mg PO Q6HR PRN #12 tablet 01/19/23 clindamycin HCL 300 mg PO QID #28 cap 02/14/23 Allergies Allergy/AdvReac Type Severity Reaction Status Date / Time No Known Allergies Allergy Verified 02/14/23 12:12 Review of Systems ROS Statement: Those systems with pertinent positive or pertinent negative responses have been documented in the HPI. ROS Other: All systems not noted in ROS Statement are negative. Past Medical History Past Medical History: COPD, CVA/TIA, Hypertension, Myocardial Infarction ([place]) Additional Past Medical History / Comment(s): stage 3 kidney failure, heart attack at 30, stroke x 3 Last Myocardial Infarction Date:: unknown History of Any Multi-Drug Resistant Organisms: None Reported Past Surgical History: Back Surgery, Orthopedic Surgery Additional Past Surgical History / Comment(s): back surgery, rods and spacers placed 05/09. left hand surgery, myelogram Past Anesthesia/Blood Transfusion Reactions: No Reported Reaction Past Psychological History: Depression Smoking Status: Former smoker Past Alcohol Use History: None Reported Past Drug Use History: None Reported - Past Family History Mother Family Medical History: Cancer Family Family Medical History: COPD Additional Family Medical History / Comment(s): brother 2 yrs ago from lung cancer. General Exam Limitations: no limitations General appearance: alert, in no apparent distress Eye exam: Present: normal appearance, PERRL, EOMI. Absent: scleral icterus, conjunctival injection, periorbital swelling Respiratory exam: Present: normal lung sounds bilaterally. Absent: respiratory distress, wheezes, rales, rhonchi, stridor Cardiovascular Exam: Present: regular rate, normal rhythm, normal heart sounds. Absent: systolic murmur, diastolic murmur, rubs, gallop, clicks Left Knee exam: Present: normal inspection, full ROM (pain with knee flexion), tenderness (anterior knee). Absent: swelling, abrasion, ecchymosis, deformity, crepitus, dislocation, pain/laxity with valgus Neurovascular tendon exam: Present: no vascular compromise Neurological exam: Present: alert, oriented X3, CN II-XII intact Psychiatric exam: Present: normal affect, normal mood Skin exam: Present: warm, dry, intact, normal color. Absent: rash Course Vital Signs 03/09/23 03/09/23 14:27 17:01 Temperature 97.6 F 97.9 F Pulse Rate 89 84 Respiratory 18 16 Rate Blood Pressure 101/61 105/71 O2 Sat by Pulse 95 96 Oximetry Medical Decision Making - Medical Decision Making Was pt. sent in by a medical professional or institution (, [facility], FOOD SERVICE SALES REPRESENTATIVES, urgent care, hospital, or [facility]...) When possible be specific @ -youth development specialist recommended xray yesterday Did you speak to anyone other than the patient for history (EMS, parent, family, police, friend...)? What history was obtained from this source @ -No Did you review nursing and triage notes (agree or disagree)? Why? @ -I reviewed and agree with nursing and triage notes Were old charts reviewed (outside hosp., previous admission, EMS record, old EKG, old radiological studies, urgent care reports/EKG's, [facility] records)? Report findings @ -No old charts were reviewed Differential Diagnosis (chest pain, altered mental status, abdominal pain women, abdominal pain men, vaginal bleeding, weakness, fever, dyspnea, syncope, headache, dizziness, GI bleed, back pain, seizure, CVA, palpatations, mental health)? @ -Knee sprain, knee fracture, contusion EKG interpreted by me (3pts min.). @ -As above X-rays interpreted by me (1pt min.). @No fracture or dislocation CT interpreted by me (1pt min.). @ -None done U/S interpreted by me (1pt. min.). @ -None done What testing was considered but not performed or refused? (CT, X-rays, U/S, labs)? Why? @ -None What meds were considered but not given or refused? Why? @ -None Did you discuss the management of the patient with other professionals (professionals i.e. , [facility], FOOD SERVICE SALES REPRESENTATIVES, lab, RT, psych nurse, social media director, veneer slicing machine operator, teacher, court security officer, behavioral health case manager)? Give summary @ -No Was smoking cessation discussed for >3mins.? @ -No Was critical care preformed (if so, how long)? @ -No Were there social determinants of health that impacted care today? How? (Homelessness, low income, unemployed, alcoholism, drug addiction, transportation, low edu. Level, literacy, decrease access to med. care, fdc, rehab)? @ -No Was there de-escalation of care discussed even if they declined (Discuss DNR or withdrawal of care, Hospice)? DNR status @ -No What co-morbidities impacted this encounter? (DM, HTN, Smoking, COPD, CAD, Cancer, CVA, ARF, Chemo, Hep., AIDS, mental health diagnosis, sleep apnea, morbid obesity)? @ -None Was patient admitted / discharged? Hospital course, mention meds given and route, prescriptions, significant lab abnormalities, going to OR and other pertinent info. @ -Discharged. X-ray interpreted by myself no fracture or dislocation I do suspect knee sprain. Patient placed in a knee immobilizer he declined crutches states he has them at home. Follow up with his youth development specialist for MRI. Undiagnosed new problem with uncertain prognosis? @ -No Drug Therapy requiring intensive monitoring for toxicity (Heparin, Nitro, Insulin, Cardizem)? @ -No Were any procedures done? @ -No Diagnosis/symptom? @ -left knee injury Acute, or Chronic, or Acute on Chronic? @ -acute Uncomplicated (without systemic symptoms) or Complicated (systemic symptoms)? @ uncomplicated Side effects of treatment? @ -No Exacerbation, Progression, or Severe Exacerbation? @ -[No] Poses a threat to life or bodily function? How? (Chest pain, [place], [place], pneumonia, PE, COPD, DKA, ARF, appy, cholecystitis, CVA, Diverticulitis, Homicidal, Suicidal, threat to staff... and all critical care pts) @No Dr. Stahl is my attending Disposition Clinical Impression: Left knee injury Disposition: HOME SELF-CARE Condition: Good Instructions (If sedation given, give patient instructions): Knee Sprain (ED) Additional Instructions: Ice and elevate injury. Use your crutches athave at home and do not bear weight until orthopedic clearance. Take prescribed Vicodin for pain. Follow-up with youth development specialist in 1-2 days. Return to the emergency department if you experience new, concerning, or worsening symptoms Is patient prescribed a controlled substance at d/c from ED?: No Referrals: None,Stated [Primary Care Provider] - 1-2 days Aaron Scott DO [Doctor of Osteopathic Medicine] - 1-2 days
[2023-03-09 17:03] VITALS: BP 105/71; PULSE 84; RESP 16; TEMP 97.9
== END 2023-03-09 17:03 | disposition home or self-care (01) ==
LOC: EC 14:17
DX: S89.92XA Unspecified injury of left lower leg, initial encounter (principal); I10 Essential (primary) hypertension; I25.2 Old myocardial infarction; J44.9 Chronic obstructive pulmonary disease, unspecified; F32.A Depression, unspecified; Z87.891 Personal history of nicotine dependence; Z79.899 Other long term (current) drug therapy; Z79.02 Long term (current) use of antithrombotics/antiplatelets; Z79.51 Long term (current) use of inhaled steroids; W50.2XXA Accidental twist by another person, initial encounter
CPT/HCPCS: 29505; 99283

== ENCOUNTER → 2023-04-19 | Outpatient (CLI) | payer OTHER, MEDICARE ==
--- NOTE | 2023-04-19 14:48 | XR ---
EXAMINATION TYPE: XR lumbar spine 2 or 3V DATE OF EXAM: 04/19/2023 2:41 PM INDICATION: Patient age:Male; 72 years old; Reason for study: M96.1 S/P Laminectomy M25.552 Pain left hip; COMPARISON: None TECHNIQUE: Frontal, lateral and coned in L5-S1 lateral views of the spine. FINDINGS: Fixation hardware L2-L5 with hardware in place. Discectomy at L2-L3, L3-L4 and L4-L5. No ev idence of any acute osseous pathology. No evidence of loss of vertebral body height is seen. There i s normal alignment of the lumbar vertebral bodies. Mild scattered disc space narrowing. Multilevel ma rginal osteophyte formation throughout the visualized spine. There is facet joint arthropathy through out the spine. Scattered at least mild neural foraminal stenosis. Arthrosis course of the arterial st ructure. There is at least mild neural foraminal stenosis at L5-S1. IMPRESSION: 1. No acute fracture. 2. Mild multilevel disc degeneration. 3. Postsurgical changes with hardware intact.
--- NOTE | 2023-04-19 14:57 | XR ---
EXAMINATION TYPE: XR Hip Limited LT DATE OF EXAM: 04/19/2023 2:41 PM INDICATION: Patient age:Male; 72 years old; Reason for study: M96.1 S/P Laminectomy M25.552 Pain left hip; [facility]. COMPARISON: None. TECHNIQUE: The left hip was examined in the frontal and lateral projections .. FINDINGS: No evidence for acute process, joint dislocation or significant soft tissue swelling. Osteo phyte formation of the superior acetabulum of the hips. IMPRESSION: 1. No evidence for acute process. 2. Mild hip osteoarthrosis.
== END | disposition home or self-care (01) ==
LOC: RADXRMAIN 14:10
PROVIDERS: ATTEND Neurological Surgery
DX: M96.1 Postlaminectomy syndrome, not elsewhere classified (principal); M51.26 Other intervertebral disc displacement, lumbar region; M43.26 Fusion of spine, lumbar region; M25.552 Pain in left hip
CPT/HCPCS: 72100; 73501

== ENCOUNTER → 2023-05-31 | Outpatient (CLI) | payer OTHER, MEDICARE ==
--- NOTE | 2023-05-31 13:54 | XR ---
EXAMINATION TYPE: XR Hip Complete LT DATE OF EXAM: 05/31/2023 CLINICAL HISTORY: pain TECHNIQUE: AP and frogleg views of the left hip are obtained. COMPARISON: None. FINDINGS: There is no acute fracture/dislocation evident. The joint space appears within normal li mits. The overlying soft tissue appears unremarkable. IMPRESSION: 1. There is no acute fracture or dislocation.ICD 10 NO FRACTURE, INITIAL EVALUATION
--- NOTE | 2023-05-31 13:56 | XR ---
EXAMINATION TYPE: XR lumbar spine 2 or 3V DATE OF EXAM: 05/31/2023 CLINICAL HISTORY: pain TECHNIQUE: Three views of the lumbar spine are submitted. COMPARISON: 04/19/2023 FINDINGS: Laminectomy and fusion changes redemonstrated extending from L2 through L5. Pedicular screws and inte rvertebral body spacers are unchanged. No fracture or malalignment. Degenerative changes L5-S1. IMPRESSION: No acute fracture or dislocation is seen in the lumbar spine. ICD 10 NO FRACTURE, INITIAL EVALUATION
== END | disposition home or self-care (01) ==
LOC: RADXRMAIN 12:39
PROVIDERS: ATTEND Neurological Surgery
DX: M43.26 Fusion of spine, lumbar region (principal); M51.26 Other intervertebral disc displacement, lumbar region; M25.552 Pain in left hip
CPT/HCPCS: 72100; 73502

== ENCOUNTER 2023-11-03 13:53 | Observation (INO) | payer MEDICARE, OTHER ==
--- NOTE | 2023-11-03 15:13 | CT ---
EXAMINATION TYPE: CT brain cspine wo con DATE OF EXAM: 11/03/2023 COMPARISON: None available. HISTORY: Fall. CT DLP: 1583.1 mGycm Automated exposure control for dose reduction was used. TECHNIQUE: CT scan of the head and cervical spine are performed without contrast. FINDINGS: There is no acute intracranial hemorrhage, mass effect, or midline shift identified. The ventricles and sulci are within normal limits in size. The globes are intact and the visualized sin uses are clear. Cervical spine is visualized in its entirety from C1 through upper thoracic levels and demonstrates s atisfactory alignment without evidence of acute fracture or dislocation. Prevertebral soft tissue ap pears within normal limits. The C1-C2 articulation is unremarkable. Emphysematous changes are seen at the lung apices as well as chronic interstitial changes IMPRESSION: 1. There is no acute fracture or dislocation evident in the cervical spine. 2. No acute intracranial hemorrhage, mass effect, or midline shift is seen. 3. Additional findings as above.
[2023-11-03 17:30] LABS: Anisocytosis Moderate; Basophils # (A) 0.1 k/uL (0-0.2); Basophils % (A) 1 %; Eosinophils # (A) 0.4 k/uL (0-0.7); Eosinophils % (A) 6 %; HCT 39.7 % (39.0-53.0); HGB 12.8 gm/dL (13.0-17.5); Lymphocytes # (A) 2.1 k/uL (1.0-4.8); Lymphocytes % (A) 30 %; MCHC 32.4 g/dL (31.0-37.0); MCV 80.2 fL (80.0-100.0); Mean Platelet Volume 6.7; Microcytosis Moderate; Monocytes # (A) 0.4 k/uL (0-1.0); Monocytes % (A) 5 %; Neutrophils # (A) 3.9 k/uL (1.3-7.7); Neutrophils % (A) 57 %; Platelet Count 319 k/uL (150-450); RBC 4.95 m/uL (4.30-5.90); RDW 22.5 % (11.5-15.5); WBC 6.9 k/uL (3.8-10.6)
[2023-11-03 17:39] LABS: ALT 26 U/L (4-49); AST 34 U/L (17-59); African American GFR (CKD) 76 (>60 ml/min/1.73 sqM); Albumin 4.2 g/dL (3.5-5.0); Alkaline Phosphatase 181 U/L (38-126); Anion Gap 9 mmol/L; Blood Urea Nitrogen 13 mg/dL (9-20); Calcium 9.3 mg/dL (8.4-10.2); Carbon Dioxide 27 mmol/L (22-30); Chloride 99 mmol/L (98-107); Glucose 96 mg/dL (74-99); Non-African American GFR(CKD) 66 (>60 ml/min/1.73 sqM); Potassium 4.9 mmol/L (3.5-5.1); Sodium 135 mmol/L (137-145); Total Bilirubin 0.5 mg/dL (0.2-1.3); Total Protein 7.5 g/dL (6.3-8.2)
[2023-11-03] MEDS: HYDROcodone/APAP 7.5-325MG 1 EACH TAB PO ONE (17:57)
--- NOTE | 2023-11-03 19:45 | ED ---
General Adult HPI - General Chief complaint: Fall Stated complaint: Fall Time Seen by Provider: 11/03/23 14:10 Source: patient Mode of arrival: wheelchair Limitations: no limitations - History of Present Illness Initial comments: 73-year-old male presents to the emergency department after multiple reported falls. States that over the past 2 weeks he has had multiple falls due to dizziness. States that when he attempts to ambulate that he feels like he is off balance and he falls to the ground. He denies vertiginous symptoms. No headache or visual changes. No slurred speech or confusion. States that today he fell and hit his head on his car door and this prompted him to come to the emergency department for evaluation. He denies history of stroke. He denies any lateralizing weakness. No other alleviating, precipitating or modifying factors - Related Data Home Medications Medication Instructions Recorded Confirmed Clopidogrel Bisulfate [Plavix] 75 mg PO DAILY 08/16/21 11/03/23 Cyclobenzaprine [Flexeril] 10 mg PO TID PRN 08/16/21 11/03/23 Gabapentin [Neurontin] 300 mg PO TID 08/16/21 11/03/23 Naproxen 375 mg PO BID PRN 08/16/21 11/03/23 Omeprazole 40 mg PO DAILY 08/16/21 11/03/23 Sodium Bicarbonate Tab 650 mg PO BID 08/16/21 11/03/23 Tamsulosin [Flomax] 0.8 mg PO DAILY 08/16/21 11/03/23 HYDROcodone/APAP 7.5-325MG [[place] 1 tab PO QID PRN 09/18/22 11/03/23 7.5-325] Albuterol Inhaler [Ventolin Hfa 2 puff INHALATION RT-Q6H PRN 01/19/23 11/03/23 Inhaler] Magnesium 420mg 420 mg PO BID 01/19/23 11/03/23 Tiotropium 2.5 Mcg/Puff [Spiriva 2 puff INHALATION RT-DAILY 01/19/23 11/03/23 Respimat 2.5 Mcg] Atorvastatin [Lipitor] 40 mg PO HS 11/03/23 11/03/23 Ciclesonide [Alvesco] 2 puff INHALATION RT-BID 11/03/23 11/03/23 FLUoxetine HCL [PROzac] 10 mg PO DAILY 11/03/23 11/03/23 Ferrous Sulfate [Iron (65 MG 325 mg PO BID 11/03/23 11/03/23 Elemental)] Lidocaine 5% Patch [Lidoderm 5% 2 patch TOPICAL DAILY PRN 11/03/23 11/03/23 Patch] Pyridoxine HCl (Vitamin B6) 50 mg PO DAILY 11/03/23 11/03/23 [Pyridoxine HCl] Previous Rx's Medication Instructions Recorded Midodrine [ProAmatine] 5 mg PO AC-TID #90 tab 11/05/23 Allergies Allergy/AdvReac Type Severity Reaction Status Date / Time No Known Allergies Allergy Verified 11/03/23 21:59 Review of Systems ROS Statement: Those systems with pertinent positive or pertinent negative responses have been documented in the HPI. ROS Other: All systems not noted in ROS Statement are negative. Past Medical History Past Medical History: COPD, CVA/TIA, Hypertension, Myocardial Infarction ([place]) Additional Past Medical History / Comment(s): stage 3 kidney failure, heart attack at 30, stroke x 3 Last Myocardial Infarction Date:: unknown History of Any Multi-Drug Resistant Organisms: None Reported Past Surgical History: Back Surgery, Orthopedic Surgery Additional Past Surgical History / Comment(s): back surgery, rods and spacers placed 05/09. left hand surgery, myelogram Past Anesthesia/Blood Transfusion Reactions: No Reported Reaction Past Psychological History: Depression Smoking Status: Former smoker Past Alcohol Use History: None Reported Past Drug Use History: None Reported - Past Family History Mother Family Medical History: Cancer Family Family Medical History: COPD Additional Family Medical History / Comment(s): brother 2 yrs ago from lung cancer. General Exam Limitations: no limitations General appearance: alert, in no apparent distress Head exam: Present: atraumatic, normocephalic, normal inspection Eye exam: Present: normal appearance, PERRL, EOMI. Absent: scleral icterus, conjunctival injection, periorbital swelling ENT exam: Present: normal exam, mucous membranes moist Neck exam: Present: normal inspection. Absent: tenderness, meningismus, lymphadenopathy Respiratory exam: Present: normal lung sounds bilaterally. Absent: respiratory distress, wheezes, rales, rhonchi, stridor Cardiovascular Exam: Present: regular rate, normal rhythm, normal heart sounds. Absent: systolic murmur, diastolic murmur, rubs, gallop, clicks GI/Abdominal exam: Present: soft, normal bowel sounds. Absent: distended, tenderness, guarding, rebound, rigid Extremities exam: Present: normal inspection, full ROM, normal capillary refill. Absent: tenderness, pedal edema, joint swelling, calf tenderness Back exam: Present: normal inspection Neurological exam: Present: alert, oriented X3, CN II-XII intact Psychiatric exam: Present: normal affect, normal mood Skin exam: Present: warm, dry, intact, normal color. Absent: rash Course Vital Signs 11/03/23 11/03/23 11/03/23 14:02 17:56 20:00 Temperature 98.1 F Pulse Rate 94 87 Respiratory 18 18 18 Rate Blood Pressure 140/84 157/89 Blood Pressure 201/91 [Right Arm] O2 Sat by Pulse 99 100 Oximetry 11/03/23 11/03/23 20:02 20:54 Temperature Pulse Rate Respiratory 18 18 Rate Blood Pressure Blood Pressure 204/94 185/87 [Right Arm] O2 Sat by Pulse 98 Oximetry Medical Decision Making - Medical Decision Making Was pt. sent in by a medical professional or institution (, PA, FURNITURE DECALS INSPECTOR, urgent care, hospital, or usp...) When possible be specific @ -No Did you speak to anyone other than the patient for history (EMS, parent, family, police, friend...)? What history was obtained from this source @ -No Did you review nursing and triage notes (agree or disagree)? Why? @ -I reviewed and agree with nursing and triage notes Were old charts reviewed (outside hosp., previous admission, EMS record, old EKG, old radiological studies, urgent care reports/EKG's, usp records)? Report findings @ -No old charts were reviewed Differential Diagnosis (chest pain, altered mental status, abdominal pain women, abdominal pain men, vaginal bleeding, weakness, fever, dyspnea, syncope, headache, dizziness, GI bleed, back pain, seizure, CVA, palpatations, mental health, musculoskeletal)? @ -Differential Dizziness: Benign paroxysmal positional Vertigo, Menieres disease, otitis media, acoustic neuroma, vertebrobasilar insufficiency, cerebellar stroke, encephalitis, hypovolemic, arrhythmia, coronary artery syndrome, anemia, this is not meant to be an all-inclusive list EKG interpreted by me (3pts min.). @ -Yes and demonstrates sinus rhythm with rate of 79. CT interval 180. QRS 89. QTc of 400. No acute ST segment elevations or depressions X-rays interpreted by me (1pt min.). @ -Yes and demonstrates no acute process CT interpreted by me (1pt min.). @ -Yes and demonstrates no stroke U/S interpreted by me (1pt. min.). @ -None done What testing was considered but not performed or refused? (CT, X-rays, U/S, labs)? Why? @ -None What meds were considered but not given or refused? Why? @ -None Did you discuss the management of the patient with other professionals (professionals i.e. DrAnthony, PA, FURNITURE DECALS INSPECTOR, lab, RT, psych nurse, psychosocial rehabilitation counselor, line tester, teacher, family preservation officer, window caser)? Give summary @ -Spoke with Dr. Andrews for admission Was smoking cessation discussed for >3mins.? @ -No Was critical care preformed (if so, how long)? @ -No Were there social determinants of health that impacted care today? How? (Homelessness, low income, unemployed, alcoholism, drug addiction, transportation, low edu. Level, literacy, decrease access to med. care, long term, rehab)? @ -No Was there de-escalation of care discussed even if they declined (Discuss DNR or withdrawal of care, Hospice)? DNR status @ -No What co-morbidities impacted this encounter? (DM, HTN, Smoking, COPD, CAD, Cancer, CVA, ARF, Chemo, Hep., AIDS, mental health diagnosis, sleep apnea, morbid obesity)? @ -COPD with home O2 use Was patient admitted / discharged? Hospital course, mention meds given and route, prescriptions, significant lab abnormalities, going to OR and other pertinent info. @ -Upon arrival patient was placed into bed 33. Thorough history and physical exam was performed. Patient does have some appreciable ataxia in the right upper extremity. Laboratory studies are conducted. Patient does go for CT of his head and cervical spine because of the fall. No acute injury identified. Due to patient's repetitive falls with concern for safety due to his dizziness I did recommend admission for neurology consultation. Patient was agreeable to this. Spoke with Dr. Andrews who agreed to admit the patient Undiagnosed new problem with uncertain prognosis? @ -Yes Drug Therapy requiring intensive monitoring for toxicity (Heparin, Nitro, Insulin, Cardizem)? @ -No Were any procedures done? @ -No Diagnosis/symptom? @ -Acute ataxia, multiple falls, blunt head trauma Acute, or Chronic, or Acute on Chronic? @ -Acute Uncomplicated (without systemic symptoms) or Complicated (systemic symptoms)? @ -Complicated Side effects of treatment? @ -No Exacerbation, Progression, or Severe Exacerbation? @ -No Poses a threat to life or bodily function? How? (Chest pain, [place], SC, pneumonia, PE, COPD, DKA, ARF, appy, cholecystitis, CVA, Diverticulitis, Homicidal, Suicidal, threat to staff... and all critical care pts) @ -No - Lab Data Result diagrams: 11/04/23 05:56 11/04/23 05:56 Lab Results 11/03/23 11/03/23 11/03/23 Range/Units 17:19 17:19 17:19 WBC 6.9 (3.8-10.6) k/uL RBC 4.95 (4.30-5.90) m/uL Hgb 12.8 L (13.0-17.5) gm/dL Hct 39.7 (39.0-53.0) % MCV 80.2 (80.0-100.0) fL MCH 26.0 (25.0-35.0) pg MCHC 32.4 (31.0-37.0) g/dL RDW 22.5 H (11.5-15.5) % Plt Count 319 (150-450) k/uL MPV 6.7 Neutrophils % 57 % Lymphocytes % 30 % Monocytes % 5 % Eosinophils % 6 % Basophils % 1 % Neutrophils # 3.9 (1.3-7.7) k/uL Lymphocytes # 2.1 (1.0-4.8) k/uL Monocytes # 0.4 (0-1.0) k/uL Eosinophils # 0.4 (0-0.7) k/uL Basophils # 0.1 (0-0.2) k/uL Anisocytosis Moderate Microcytosis Moderate Sodium 135 L (137-145) mmol/L Potassium 4.9 (3.5-5.1) mmol/L Chloride 99 (98-107) mmol/L Carbon Dioxide 27 (22-30) mmol/L Anion Gap 9 mmol/L BUN 13 (9-20) mg/dL Creatinine 1.12 (0.66-1.25) mg/dL Est GFR (CKD-EPI)AfAm 76 (>60 ml/min/1.73 sqM) Est GFR (CKD-EPI)NonAf 66 (>60 ml/min/1.73 sqM) Glucose 96 (74-99) mg/dL Plasma Lactic Acid Marvin 0.9 (0.7-2.0) mmol/L Calcium 9.3 (8.4-10.2) mg/dL Total Bilirubin 0.5 (0.2-1.3) mg/dL AST 34 (17-59) U/L ALT 26 (4-49) U/L Alkaline Phosphatase 181 H (38-126) U/L Troponin I (0.000-0.034) ng/mL Total Protein 7.5 (6.3-8.2) g/dL Albumin 4.2 (3.5-5.0) g/dL 11/03/23 Range/Units 17:19 WBC (3.8-10.6) k/uL RBC (4.30-5.90) m/uL Hgb (13.0-17.5) gm/dL Hct (39.0-53.0) % MCV (80.0-100.0) fL MCH (25.0-35.0) pg MCHC (31.0-37.0) g/dL RDW (11.5-15.5) % Plt Count (150-450) k/uL MPV Neutrophils % % Lymphocytes % % Monocytes % % Eosinophils % % Basophils % % Neutrophils # (1.3-7.7) k/uL Lymphocytes # (1.0-4.8) k/uL Monocytes # (0-1.0) k/uL Eosinophils # (0-0.7) k/uL Basophils # (0-0.2) k/uL Anisocytosis Microcytosis Sodium (137-145) mmol/L Potassium (3.5-5.1) mmol/L Chloride (98-107) mmol/L Carbon Dioxide (22-30) mmol/L Anion Gap mmol/L BUN (9-20) mg/dL Creatinine (0.66-1.25) mg/dL Est GFR (CKD-EPI)AfAm (>60 ml/min/1.73 sqM) Est GFR (CKD-EPI)NonAf (>60 ml/min/1.73 sqM) Glucose (74-99) mg/dL Plasma Lactic Acid Marvin (0.7-2.0) mmol/L Calcium (8.4-10.2) mg/dL Total Bilirubin (0.2-1.3) mg/dL AST (17-59) U/L ALT (4-49) U/L Alkaline Phosphatase (38-126) U/L Troponin I <0.012 (0.000-0.034) ng/mL Total Protein (6.3-8.2) g/dL Albumin (3.5-5.0) g/dL Disposition Clinical Impression: Blunt head trauma, Ataxia, Fall Disposition: ADMITTED IP TO THIS [facility] Condition: Stable Is patient prescribed a controlled substance at d/c from ED?: No Time of Disposition: 20:05 Decision to Admit Reason: Admit from EC Decision Date: 11/03/23 Decision Time: 20:06
[2023-11-03] MEDS ORDERED: NALOXONE 0.4 MG/ML 1 ML VIAL IV PRN (20:06)
--- NOTE | 2023-11-03 22:34 | P.HPIM ---
History of Present Illness H&P Date: 11/03/23 Patient is a 74-year-old male with a PMH of COPD with chronic hypoxic respiratory failure on 3 L nasal cannula oxygen continuously at home, CAD status post multiple stents who presents to the emergency room with complaints of dizziness and falls. Patient reports that over the past 1 week he has had multiple episodes leading to 4 falls. Most recently, earlier today while he was out grocery shopping, as he walked to his car and leaneddown to put the groceries in, as he leaned back up he suddenly developed lightheadedness leading to him falling against the car hitting his head and subsequently falling onto his buttocks. He denies striking his head on the ground. He does report feeling an unsteady gait. Reports multiple similar falls at home. Notes a sensation of lightheadedness especially with standing up suddenly. The lightheadedness initially improves but then returns with ambulation. Denies experiencing chest discomfort, shortness of breath, palpitations, nausea, or diaphoresis. Also denies experiencing weakness, numbness, tingling, facial droop, or visual disturbances. Denies any prior history of such symptoms. Denies any recent changes to his medications. Head/cervical spine CT in the emergency room was unremarkable with EKG showing sinus rhythm at [address]/T wave changes noted as reviewed by me. Laboratory evaluation revealed a troponin less than 0.012, with creatinine 1.12 (at baseline), hemoglobin 12.8. Vital signs upon arrival at the emergency room were BP 140/84 with pulse 94. The patient's orthostatics were negative, although the blood pressure was significantly elevated with sitting BP 204/94. ED documentation reviewed and case discussed with ED provider. Review of systems: Pertinent positives and negatives as discussed in HPI, a complete review of systems was performed and all other systems are negative. Physical examination: Vital signs reviewed General: non toxic, no distress, appears at stated age, normal weight Derm: no unusual rashes/lesions, warm Head: atraumatic, normocephalic, symmetric Eyes: EOMI, no lid lag, anicteric sclera, pupils equal round reactive to light ENT: Nose and ears atraumatic Neck: No cervical lymphadenopathy, trachea midline, supple Mouth: no lip lesion, mucus membranes moist Cardiovascular: S1S2 reg, no murmur, positive dorsalis pedis pulse bilateral, no edema Lungs: CTA bilateral, no rhonchi, no rales, no accessory muscle use Abdominal: soft, nontender to palpation, no guarding Ext: muscle strength 5 out of 5 in all 4 extremities grossly, no gross muscle atrophy, no contractures, Neuro: CN II-XI grossly intact, no gross focal neuro deficits Psych: Alert, oriented, appropriate affect Assessment: Lightheadedness and falls with ataxia, unclear etiology, r/o CVA vs posterior circulation insufficiency vs medication side-effect Chronic conditions: COPD, CAD Imaging: Head/cervical spine CT in the emergency room was unremarkable with EKG showing sinus rhythm at [address]/T wave changes noted as reviewed by me. Data Review: Laboratory evaluation revealed a troponin less than 0.012, with creatinine 1.12 (at baseline), hemoglobin 12.8. Vital signs upon arrival at the emergency room were BP 140/84 with pulse 94. The patient's orthostatics were negative, although the blood pressure was significantly elevated with sitting BP 204/94. Plan: Patient currently on gabapentin 300 mg 3 times daily, [place] 7.5 mg 4 times daily as needed, and Flexeril 10 mg p.o. 3 times daily Hold off on gabapentin and Flexeril for now Fall precautions Cardiac monitoring Obtain echocardiogram Neurology consult Continue with home medications DVT prophylaxis: Lovenox subcu The patient is admitted with an anticipated less than 2 midnight stay for evaluation of dizziness CODE STATUS: Full Code Discussed with: Patient Anticipated discharge place: Home Past Medical History Past Medical History: COPD, CVA/TIA, Hypertension, Myocardial Infarction ([place]) Additional Past Medical History / Comment(s): stage 3 kidney failure, heart attack at 30, stroke x 3 Last Myocardial Infarction Date:: unknown History of Any Multi-Drug Resistant Organisms: None Reported Past Surgical History: Back Surgery, Orthopedic Surgery Additional Past Surgical History / Comment(s): back surgery, rods and spacers placed 05/09. left hand surgery, myelogram Past Anesthesia/Blood Transfusion Reactions: No Reported Reaction Past Psychological History: Depression Smoking Status: Former smoker Past Alcohol Use History: None Reported Past Drug Use History: None Reported - Past Family History Mother Family Medical History: Cancer Family Family Medical History: COPD Additional Family Medical History / Comment(s): brother 2 yrs ago from lung cancer. Medications and Allergies Home Medications Medication Instructions Recorded Confirmed Type Clopidogrel Bisulfate [Plavix] 75 mg PO DAILY 08/16/21 11/03/23 History Cyclobenzaprine [Flexeril] 10 mg PO TID PRN 08/16/21 11/03/23 History Gabapentin [Neurontin] 300 mg PO TID 08/16/21 11/03/23 History Naproxen 375 mg PO BID PRN 08/16/21 11/03/23 History Omeprazole 40 mg PO DAILY 08/16/21 11/03/23 History Sodium Bicarbonate Tab 650 mg PO BID 08/16/21 11/03/23 History Tamsulosin [Flomax] 0.8 mg PO DAILY 08/16/21 11/03/23 History HYDROcodone/APAP 7.5-325MG [[place] 1 tab PO QID PRN 09/18/22 11/03/23 History 7.5-325] Albuterol Inhaler [Ventolin Hfa 2 puff INHALATION RT-Q6H PRN 01/19/23 11/03/23 History Inhaler] Magnesium 420mg 420 mg PO BID 01/19/23 11/03/23 History Tiotropium 2.5 Mcg/Puff [Spiriva 2 puff INHALATION RT-DAILY 01/19/23 11/03/23 History Respimat 2.5 Mcg] Atorvastatin [Lipitor] 40 mg PO HS 11/03/23 11/03/23 History Ciclesonide [Alvesco] 2 puff INHALATION RT-BID 11/03/23 11/03/23 History FLUoxetine HCL [PROzac] 10 mg PO DAILY 11/03/23 11/03/23 History Ferrous Sulfate [Feosol] 325 mg PO BID 11/03/23 11/03/23 History Lidocaine 5% Patch [Lidoderm] 2 patch TOPICAL DAILY PRN 11/03/23 11/03/23 History Pyridoxine HCl (Vitamin B6) 50 mg PO DAILY 11/03/23 11/03/23 History [Pyridoxine HCl] Allergies Allergy/AdvReac Type Severity Reaction Status Date / Time No Known Allergies Allergy Verified 11/03/23 21:59 Physical Exam Vitals: Vital Signs Temp Pulse Resp BP BP Pulse Ox 11/03/23 20:54 18 185/87 11/03/23 20:02 18 204/94 98 11/03/23 20:00 18 201/91 11/03/23 17:56 87 18 157/89 100 11/03/23 14:02 98.1 F 94 18 140/84 99 Intake and Output 11/03/23 11/03/23 11/03/23 06:59 14:59 22:59 Other: Weight 90.718 kg Results CBC & Chem 7: 11/03/23 17:19 11/03/23 17:19 Labs: Abnormal Lab Results - Last 24 Hours (Table) 11/03/23 11/03/23 Range/Units 17:19 17:19 Hgb 12.8 L (13.0-17.5) gm/dL RDW 22.5 H (11.5-15.5) % Sodium 135 L (137-145) mmol/L Alkaline Phosphatase 181 H (38-126) U/L
[2023-11-03] MEDS ORDERED: ALBUTEROL NEBULIZED 2.5 MG/3 ML INHALATION PRN (22:35)
[2023-11-04] MEDS: HYDROcodone/APAP 7.5-325MG 1 EACH TAB PO PRN (00:08)
[2023-11-04 08:25] LABS: HCT 36.8 % (39.6-50.0); HGB 11.9 g/dL (13.0-17.0); MCH 25.4 pg (27.0-32.0); MCHC 32.3 g/dL (32.0-37.0); MCV 78.6 FL (80.0-97.0); Mean Platelet Volume 8.7 FL (9.5-12.2); NRBC Per 100 WBC 0 X 10*3/uL (0.00-0.01); Platelet Count 299 X 10*3/uL (140-440); RBC 4.68 X 10*6/uL (4.40-5.60); RDW 24.4 % (11.5-14.5); WBC 5.16 X 10*3/uL (4.50-10.00)
[2023-11-04] MEDS: IPRATROPIUM 0.5 MG/2.5 ML NEBU INHALATION SCH (08:31)
[2023-11-04 08:38] LABS: BUN/Creat Ratio 11.25 Ratio (12.00-20.00); Blood Urea Nitrogen 13.5 mg/dL (9.0-27.0); Calcium 9.1 mg/dL (8.7-10.3); Carbon Dioxide 23.8 mmol/L (21.6-31.8); Chloride 101 mmol/L (96-109); Glucose 91 mg/dL (70-110); Potassium 4.2 mmol/L (3.5-5.5); Sodium 136 mmol/L (135-145)
[2023-11-04 09:35] LABS: Anisocytosis (M) 2+; Basophils # (A) 0.05 X 10*3/uL (0.00-0.10); Eosinophils # (A) 0.41 X 10*3/uL (0.04-0.35); Eosinophils % (A) 7.9 %; Lymphocytes # (A) 1.68 X 10*3/uL (0.90-5.00); Lymphocytes % (A) 32.6 %; Microcytosis (M) 2+; Monocytes # (A) 0.51 X 10*3/uL (0.20-1.00); Monocytes % (A) 9.9 %; Neutrophils # (A) 2.48 X 10*3/uL (1.80-7.70)
[2023-11-04] MEDS: FLUoxetine HCL 10 MG CAP PO SCH (09:37)
[2023-11-04] MEDS: TAMSULOSIN 0.4 MG CAP.ER.24H PO SCH (09:37)
[2023-11-04] MEDS: SODIUM BICARBONATE TAB 650 MG TAB PO SCH (09:37)
[2023-11-04] MEDS: PANTOPRAZOLE 40 MG TABLET PO SCH (09:37)
[2023-11-04] MEDS: CLOPIDOGREL 75 MG TAB PO SCH (09:37)
[2023-11-04] MEDS: PYRIDOXINE 50 MG TAB PO SCH (09:37)
[2023-11-04] MEDS: ENOXAPARIN 40 MG/0.4 ML SYRINGE SQ SCH (09:38)
--- NOTE | 2023-11-04 11:24 | US ---
EXAMINATION TYPE: US carotid duplex BILAT DATE OF EXAM: 11/04/2023 COMPARISON: 08/17/2021 - US Carotid CLINICAL INDICATION: Male, 73 years old with history of lightheadedness; Multiple falls within the la st week without LOC; Numbness to bilateral feet TECHNIQUE: Carotid duplex ultrasound examination. Indirect Doppler criteria was utilized. FINDINGS: EXAM MEASUREMENTS: RIGHT: Peak Systolic Velocity (PSV) cm/sec ----- Right CCA: 93 ----- Right ICA: 108 ----- Right ECA: 178 ICA/CCA ratio: 1.2 RIGHT: End Diastole cm/sec ----- Right CCA: 20 ----- Right ICA: 37 ----- Right ECA: 21 LEFT: Peak Systolic Velocity (PSV) cm/sec ----- Left CCA: 74 ----- Left ICA: 134 ----- Left ECA: 209 ICA/CCA ratio: 1.8 LEFT: End Diastole cm/sec ----- Left CCA: 21 ----- Left ICA: 41 ----- Left ECA: 25 VERTEBRALS (direction of flow): Right Vertebral: Antegrade Left Vertebral: Antegrade Rhythm: Normal MORTUARY TECHNICIAN NOTES: Intimal thickening/ soft plaque seen throughout bilateral CCAs and bifucations, Ca lcified plaque seen throughout bilateral CCAs and bifurcations, Elevated velocities within the left I CA and ECA. IMPRESSION: 1. 50-69% stenosis of the left carotid bifurcation peak systolic velocity. 2. Less than 50% stenosis of the right carotid bifurcations. Criteria for Assigning % of Stenosis / Diameter reduction (Estimation based on the indirect measurements of the internal carotid artery velocities (ICA PSV). 1. Normal (no stenosis)=ICA PSV < 125 cm/s: ratio < 2.0: ICA EDV<40 cm/s. 2. Less than 50% stenosis=ICA PSV < 125 cm/s: ratio < 2.0: ICA EDV<40 cm/s. 3. 50 to 69% stenosis=ICA PSV of 125 to 230 cm/s: ration 2.0 ? 4.0: ICA EDV 40-100 cm/s. 4. Greater than 70% stenosis to near occlusion= ICA PSV > 230 cm/s: ratio > 4.0: ICA EDV > 100 cm/s. 5. Near occlusion= ICA PSV velocities may be low or undetectable: variable ratio and ICA EDV. 6. Total occlusion=unable to detect flow.
--- NOTE | 2023-11-04 11:40 | P.PN ---
Subjective Progress Note Date: 11/04/23 74-year-old male with a PMH of COPD with chronic hypoxic respiratory failure on 3 L nasal cannula oxygen continuously at home, CAD status post multiple stents. Patient presents to the ED for lightheadedness and unsteadiness on his feet. Symptoms ongoing for the past 2 weeks. Relates the unsteadiness to 2 back surgeries in the past. Lightheadedness worse with changes in position. Denies slurred speech, confusion, chest pain, palpitations or syncope. Reports good oral intake. Daughter at bedside reports his BP is normally controlled without medication. Head/cervical spine CT in the emergency room was unremarkable with EKG showing sinus rhythm at [address]/T wave changes noted as reviewed by me. Laboratory evaluation revealed a troponin less than 0.012, with creatinine 1.12 (at baseline), hemoglobin 12.8. Vital signs upon arrival at the emergency room were BP 140/84 with pulse 94. The patient's orthostatics were negative, although the blood pressure was significantly elevated with sitting BP 204/94. 11/04 Patient was seen and examined. Denies any current lightheadedness. Discuss ed with Dr. Leija, plans to order MRI lumbar spine. Discussed with RN, obtain orthostats. Carotid doppler shows 50-69% L carotid, < 50% R carotid. CBC Hg 11.9 Hct 36.8 MCV 78.6. BMP BUN/Cr 11.25. General: non toxic, no distress, appears at stated age Derm: warm, dry Head: atraumatic, normocephalic, symmetric Eyes: EOMI, no lid lag, anicteric sclera Mouth: no lip lesion, mucus membranes moist Cardiovascular: S1S2 reg, no murmur Lungs: Decreased BS bilateral, no rhonchi, no rales , no accessory muscle use Abdominal: soft, nontender to palpation, no guarding, no appreciable organomegaly Ext: no gross muscle atrophy, no edema, no contractures Neuro: no focal neuro deficits Psych: Alert, oriented, appropriate affect Based on my assessment of this patient, this patient meets a high complexity level of care. Patient has an acute diagnosis of presyncope with unstable gait that poses a threat to life or bodily function. Lightheadedness: Orthostatic in nature. Advised slow positional changes. Discussed with RN, repeat orthostatic vitals. Obtain Echocardiogram. Fall precautions. PT and OT consult. Unsteady gait: Appears to be related to lumbar spine surgery. Discussed with Dr. Leija, obtain L spine MRI. Carotid stenosis: As seen on carotid doppler. Discussed with Dr. Leija, consult Vascular Sx. Microcytic anemia: No signs of acute bleeding. Monitor. Transfuse if Hg < 7. COPD on 2L home O2: Not in acute exacerbation. CAD: Plavix 75 mg PO QD. Lipitor 40 mg PO QHS. CODE STATUS: FULL CODE DVT Prophylaxis: Lovenox SQ GI Prophylaxis: Protonix Designated medical POA if patient is not able to make medical decisions for themselves: Daughter I have reviewed the following learning and development consultant notes: I have reviewed the results of the following tests: CBC, BMP, Carotid doppler. I have ordered the following tests: Pending: Echo. MRI L spine. I have discussed the care of this patient with the following independent historian: Daughter and RN at bedside. I have independently interpreted the following test below: I have discussed the management of this patient with the following physician: Dr. Leija as above. Objective - Vital Signs Vital signs: Vital Signs Temp 97.4 F L 11/04/23 07:00 Pulse 74 11/04/23 08:50 Resp 20 11/04/23 09:31 BP 161/82 11/04/23 07:00 Pulse Ox 100 11/04/23 08:42 FiO2 Intake & Output 11/03/23 11/04/23 11/04/23 18:59 06:59 18:59 Weight 90.718 kg 90.718 kg Other: Voiding Method Toilet Toilet # Voids 2 - Labs CBC & Chem 7: 11/04/23 05:56 11/04/23 05:56 Labs: Abnormal Lab Results - Last 24 Hours (Table) 11/03/23 11/03/23 11/04/23 Range/Units 17:19 17:19 05:56 Hgb 12.8 L 11.9 L (13.0-17.5) gm/dL Hct 36.8 L (39.6-50.0) % MCV 78.6 L (80.0-97.0) FL MCH 25.4 L (27.0-32.0) pg RDW 22.5 H 24.4 H (11.5-15.5) % MPV 8.7 L (9.5-12.2) FL Eosinophils # 0.41 H (0.04-0.35) X 10*3/uL Anisocytosis (manual) 2+ A Microcytosis (manual) 2+ A Sodium 135 L (137-145) mmol/L BUN/Creatinine Ratio (12.00-20.00) Ratio Alkaline Phosphatase 181 H (38-126) U/L 11/04/23 Range/Units 05:56 Hgb (13.0-17.5) gm/dL Hct (39.6-50.0) % MCV (80.0-97.0) FL MCH (27.0-32.0) pg RDW (11.5-15.5) % MPV (9.5-12.2) FL Eosinophils # (0.04-0.35) X 10*3/uL Anisocytosis (manual) Microcytosis (manual) Sodium (137-145) mmol/L BUN/Creatinine Ratio 11.25 L (12.00-20.00) Ratio Alkaline Phosphatase (38-126) U/L
--- NOTE | 2023-11-04 12:50 | P.CNNES ---
History of Present Illness Consult date: 11/04/23 Requesting physician: Valentina Brown Reason for Consult: ataxia with falls History of Present Illness: This is a 73-year-old gentleman with chronic lower back pain who had the 2 surgeries of his lower back who presents because of recent fall. Patient states he had 2 surgeries of his lower back and the last one was in May 2023 and Continues to have lower back pain without any radiation and feels his walking continues to be unsteady with balance issues. Yesterday he was a in the parking lot of the shopping mall and fell and stated that since his walking was unsteady. He denies any loss of consciousness. Denies any urinary or bowel incontinence. Denies any prior falls in the past. He states that he has c hronic numbness of his feet since the back surgery. He states that he had TIAs in the past and is on aspirin. Denies of any dizziness. He does feel lightheadedness with movement and feels better today. Some of the workup during his hospital visit consisted of: Plasma-Lyte gasoline is 0.9 Calcium is 9.3, the serum glucose is 96. CT of the head is reported as there is no acute intracranial hemorrhage, mass effect or midline shift is seen. I reviewed CT and agree with report. I feel there is old stroke over the right medial temporal superior occipital region. CT of the cervical spine is reported as there is no acute fracture or dislocation evident in the cervical spine. Carotid duplex was reported as a 50-69% stenosis of left carotid bifurcation peak systolic velocity. Less than 50% stenosis in the right carotid bifurcation. Review of Systems The positive and negative as per HPI. Past Medical History Past Medical History: COPD, CVA/TIA, Hypertension, Myocardial Infarction (CT) Additional Past Medical History / Comment(s): stage 3 kidney failure, heart attack at 30, stroke x 3 Last Myocardial Infarction Date:: unknown History of Any Multi-Drug Resistant Organisms: None Reported Past Surgical History: Back Surgery, Orthopedic Surgery Additional Past Surgical History / Comment(s): back surgery, rods and spacers placed 05/09. left hand surgery, myelogram Past Anesthesia/Blood Transfusion Reactions: No Reported Reaction Past Psychological History: Depression Smoking Status: Former smoker Past Alcohol Use History: None Reported Past Drug Use History: None Reported - Past Family History Mother Family Medical History: Cancer Family Family Medical History: COPD Additional Family Medical History / Comment(s): brother 2 yrs ago from lung cancer. Medications and Allergies Home Medications Medication Instructions Recorded Confirmed Type Clopidogrel Bisulfate [Plavix] 75 mg PO DAILY 08/16/21 11/03/23 History Cyclobenzaprine [Flexeril] 10 mg PO TID PRN 08/16/21 11/03/23 History Gabapentin [Neurontin] 300 mg PO TID 08/16/21 11/03/23 History Naproxen 375 mg PO BID PRN 08/16/21 11/03/23 History Omeprazole 40 mg PO DAILY 08/16/21 11/03/23 History Sodium Bicarbonate Tab 650 mg PO BID 08/16/21 11/03/23 History Tamsulosin [Flomax] 0.8 mg PO DAILY 08/16/21 11/03/23 History HYDROcodone/APAP 7.5-325MG [[place] 1 tab PO QID PRN 09/18/22 11/03/23 History 7.5-325] Albuterol Inhaler [Ventolin Hfa 2 puff INHALATION RT-Q6H PRN 01/19/23 11/03/23 History Inhaler] Magnesium 420mg 420 mg PO BID 01/19/23 11/03/23 History Tiotropium 2.5 Mcg/Puff [Spiriva 2 puff INHALATION RT-DAILY 01/19/23 11/03/23 History Respimat 2.5 Mcg] Atorvastatin [Lipitor] 40 mg PO HS 11/03/23 11/03/23 History Ciclesonide [Alvesco] 2 puff INHALATION RT-BID 11/03/23 11/03/23 History FLUoxetine HCL [PROzac] 10 mg PO DAILY 11/03/23 11/03/23 History Ferrous Sulfate [Feosol] 325 mg PO BID 11/03/23 11/03/23 History Lidocaine 5% Patch [Lidoderm] 2 patch TOPICAL DAILY PRN 11/03/23 11/03/23 History Pyridoxine HCl (Vitamin B6) 50 mg PO DAILY 11/03/23 11/03/23 History [Pyridoxine HCl] Allergies Allergy/AdvReac Type Severity Reaction Status Date / Time No Known Allergies Allergy Verified 11/03/23 21:59 Physical Examination - Vital Signs Vital Signs: Vital Signs Temp Pulse Pulse Resp BP BP Pulse Ox 11/04/23 12:23 74 11/04/23 12:13 72 11/04/23 09:31 20 11/04/23 08:50 74 11/04/23 08:42 72 100 11/04/23 07:00 97.4 F L 77 20 161/82 100 11/04/23 03:50 97.6 F 80 18 143/76 99 11/04/23 00:53 80 11/03/23 23:11 97.4 F L 80 17 164/86 99 11/03/23 20:54 18 185/87 11/03/23 20:02 18 204/94 98 11/03/23 20:00 18 201/91 11/03/23 17:56 87 18 157/89 100 11/03/23 14:02 98.1 F 94 18 140/84 99 Intake and Output 11/03/23 11/04/23 11/04/23 22:59 06:59 14:59 Other: Voiding Method Toilet Toilet # Voids 2 Weight 90.718 kg GENERAL: The patient is lying in bed and is not in acute distress. NEUROLOGICAL: Higher mental function: The patient is awake, alert, oriented to self, place and time. Patient is following commands. No aphasia and no neglect. Cranial nerves: The pupils are round, equal and reactive to light and accommodation. Visual [place] are full to confrontation throughout. Extraocular movement is intact no nystagmus is noted. Facial sensation is normal to touch throughout. The facial strength is normal throughout. Hearing is normal bila terally to hand rub. Tongue is midline and moved [id number] without any difficulty. No dysarthria is noted. Shoulder shrug is normal bilaterally. Motor: Gait is unsteady walking, taking short steps but did not require any assistance.The strength is 5 over 5 throughout. Normal tone and bulk. Cerebellum: Normal finger to nose bilaterally. Sensation: Sensation is normal to touch throughout. Reflexes (right/left):2+ throughout except ankles are 1+.. Plantars are mute bilaterally. Results - Laboratory Findings CBC and BMP: 11/04/23 05:56 11/04/23 05:56 Abnormal Lab Findings: Abnormal Labs 11/03/23 11/03/23 11/04/23 17:19 17:19 05:56 Hgb 12.8 L 11.9 L Hct 36.8 L MCV 78.6 L MCH 25.4 L RDW 22.5 H 24.4 H MPV 8.7 L Eosinophils # 0.41 H Anisocytosis (manual) 2+ A Microcytosis (manual) 2+ A Sodium 135 L BUN/Creatinine Ratio Alkaline Phosphatase 181 H 11/04/23 05:56 Hgb Hct MCV MCH RDW MPV Eosinophils # Anisocytosis (manual) Microcytosis (manual) Sodium BUN/Creatinine Ratio 11.25 L Alkaline Phosphatase Assessment and Plan Assessment: This is a 73-year-old gentleman who presented emergency department because of a fall. He has chronic lower back pain and had 2 surgeries last the lower back surgery was in the 2022 and he continues to have unsteady gaits. Yesterday while in the parking lot of a shopping he fell but denies any loss of consciousness. He is also feeling lightheadedness. Fall due to his unsteady gait secondary due to his chronic low back issues. Tonic lower back pain and patient had 2 surgeries and last surgery was in May 2023 Light Headedness and it seems positional Left carotid stenosis about 50-69% on carotid duplex. I feel is asymptomatic History of TIAs but upon reviewing the CT is seems the patient has old right medial temporal superior occipital old stroke Plan: We'll pursue with MRI of the brain and MRI lumbar spine 2-D echo was ordered and is pending I ordered CT angiography of the neck and I consulted the vascular surgery team for this left carotid stenosis Orthostatic vitals was ordered and is pending Patient is on Plavix 75 mg daily and Lipitor 40 mg daily at bedtime. Recommend orthopedic surgery team consultation for his lower back pain with falls. PT OT are consulted Fall precaution Shani recommend the patient to obtain EMG with nerve conduction study of the lower since he has chronic numbness of his feet and he stated it happened since his lower back surgery We'll defer the rest of the medical management to primary team The plan was discussed with the patient as well as a primary attending Thank you for the consultation Time with Patient: Greater than 30
--- NOTE | 2023-11-04 15:04 | P.GSCN ---
History of Present Illness Consult date: 11/04/23 Reason for Consult: Carotid stenosis, with lightheadedness Requesting physician: Tulio Leija History of present illness: This is a pleasant 73-year-old male who presented to the emergency department after suffering multiple falls. He has a past medical history including COPD, oxygen dependent, CVA, hypertension, myocardial infarction, coronary artery disease, chronic kidney disease and chronic back pain. He has been having multiple falls over the last couple of weeks duration. He has history of 2 surgeries of his lower back last 1 being in May 2023 however continues to have low back pain and balance difficulty. Apparently the other day he was at the store and when he came out into the parking lot he felt dizzy and he had to brace himself. He does have a history of 2 prior strokes which she states he was much younger. And no residual deficits. He had a CT of the head reported no acute intracranial hemorrhage, mass effect or midline shift seen. Neurology reviewed imaging and felt that there was an old stroke over the right medial temporal superior occipital region. CT of the cervical spine reported no acute fracture or dislocation evident of the cervical spine. Carotid duplex was ordered and the report stated 50 to 69% stenosis of left carotid bifurcation therefore vascular surgery was consulted. Patient currently denies any shortness of breath, chest pain, nausea or vomiting. He is sitting up in bed. He has no focal deficits reported. He denies any dizziness at this time. He is not following with anyone for his carotid arteries. Past Medical History Past Medical History: COPD, CVA/TIA, Hypertension, Myocardial Infarction ([place]) Additional Past Medical History / Comment(s): stage 3 kidney failure, heart attack at 30, stroke x 3 Last Myocardial Infarction Date:: unknown History of Any Multi-Drug Resistant Organisms: None Reported Past Surgical History: Back Surgery, Orthopedic Surgery Additional Past Surgical History / Comment(s): back surgery, rods and spacers placed 05/09. left hand surgery, myelogram Past Anesthesia/Blood Transfusion Reactions: No Reported Reaction Past Psychological History: Depression Smoking Status: Former smoker Past Alcohol Use History: None Reported Past Drug Use History: None Reported - Past Family History Mother Family Medical History: Cancer Family Family Medical History: COPD Additional Family Medical History / Comment(s): brother 2 yrs ago from lung cancer. Medications and Allergies Home Medications Medication Instructions Recorded Confirmed Type Clopidogrel Bisulfate [Plavix] 75 mg PO DAILY 08/16/21 11/03/23 History Cyclobenzaprine [Flexeril] 10 mg PO TID PRN 08/16/21 11/03/23 History Gabapentin [Neurontin] 300 mg PO TID 08/16/21 11/03/23 History Naproxen 375 mg PO BID PRN 08/16/21 11/03/23 History Omeprazole 40 mg PO DAILY 08/16/21 11/03/23 History Sodium Bicarbonate Tab 650 mg PO BID 08/16/21 11/03/23 History Tamsulosin [Flomax] 0.8 mg PO DAILY 08/16/21 11/03/23 History HYDROcodone/APAP 7.5-325MG [[employer] 1 tab PO QID PRN 09/18/22 11/03/23 History 7.5-325] Albuterol Inhaler [Ventolin Hfa 2 puff INHALATION RT-Q6H PRN 01/19/23 11/03/23 History Inhaler] Magnesium 420mg 420 mg PO BID 01/19/23 11/03/23 History Tiotropium 2.5 Mcg/Puff [Spiriva 2 puff INHALATION RT-DAILY 01/19/23 11/03/23 History Respimat 2.5 Mcg] Atorvastatin [Lipitor] 40 mg PO HS 11/03/23 11/03/23 History Ciclesonide [Alvesco] 2 puff INHALATION RT-BID 11/03/23 11/03/23 History FLUoxetine HCL [PROzac] 10 mg PO DAILY 11/03/23 11/03/23 History Ferrous Sulfate [Feosol] 325 mg PO BID 11/03/23 11/03/23 History Lidocaine 5% Patch [Lidoderm] 2 patch TOPICAL DAILY PRN 11/03/23 11/03/23 History Pyridoxine HCl (Vitamin B6) 50 mg PO DAILY 11/03/23 11/03/23 History [Pyridoxine HCl] Allergies Allergy/AdvReac Type Severity Reaction Status Date / Time No Known Allergies Allergy Verified 11/03/23 21:59 Surgical - Exam Vital Signs Temp Pulse Resp BP Pulse Ox 98.1 F 94 18 140/84 99 11/03/23 14:02 11/03/23 14:02 11/03/23 14:02 11/03/23 14:02 11/03/23 14:02 Results - Labs 11/04/23 05:56 11/04/23 05:56 Abnormal Lab Results - Last 24 Hours (Table) 11/03/23 11/03/23 11/04/23 Range/Units 17:19 17:19 05:56 Hgb 12.8 L 11.9 L (13.0-17.5) gm/dL Hct 36.8 L (39.6-50.0) % MCV 78.6 L (80.0-97.0) FL MCH 25.4 L (27.0-32.0) pg RDW 22.5 H 24.4 H (11.5-15.5) % MPV 8.7 L (9.5-12.2) FL Eosinophils # 0.41 H (0.04-0.35) X 10*3/uL Anisocytosis (manual) 2+ A Microcytosis (manual) 2+ A Sodium 135 L (137-145) mmol/L BUN/Creatinine Ratio (12.00-20.00) Ratio Alkaline Phosphatase 181 H (38-126) U/L 11/04/23 Range/Units 05:56 Hgb (13.0-17.5) gm/dL Hct (39.6-50.0) % MCV (80.0-97.0) FL MCH (27.0-32.0) pg RDW (11.5-15.5) % MPV (9.5-12.2) FL Eosinophils # (0.04-0.35) X 10*3/uL Anisocytosis (manual) Microcytosis (manual) Sodium (137-145) mmol/L BUN/Creatinine Ratio 11.25 L (12.00-20.00) Ratio Alkaline Phosphatase (38-126) U/L Diabetes panel 11/03/23 11/04/23 Range/Units 17:19 05:56 Sodium 135 L 136 (137-145) mmol/L Potassium 4.9 4.2 (3.5-5.1) mmol/L Chloride 99 101 (98-107) mmol/L Carbon Dioxide 27 23.8 (22-30) mmol/L BUN 13 13.5 (9-20) mg/dL Creatinine 1.12 1.2 (0.66-1.25) mg/dL Glucose 96 91 (74-99) mg/dL Calcium 9.3 9.1 (8.4-10.2) mg/dL AST 34 (17-59) U/L ALT 26 (4-49) U/L Alkaline Phosphatase 181 H (38-126) U/L Total Protein 7.5 (6.3-8.2) g/dL Albumin 4.2 (3.5-5.0) g/dL Calcium panel 11/03/23 11/04/23 Range/Units 17:19 05:56 Calcium 9.3 9.1 (8.4-10.2) mg/dL Albumin 4.2 (3.5-5.0) g/dL Pituitary panel 11/03/23 11/04/23 Range/Units 17:19 05:56 Sodium 135 L 136 (137-145) mmol/L Potassium 4.9 4.2 (3.5-5.1) mmol/L Chloride 99 101 (98-107) mmol/L Carbon Dioxide 27 23.8 (22-30) mmol/L BUN 13 13.5 (9-20) mg/dL Creatinine 1.12 1.2 (0.66-1.25) mg/dL Glucose 96 91 (74-99) mg/dL Calcium 9.3 9.1 (8.4-10.2) mg/dL Adrenal panel 11/03/23 11/04/23 Range/Units 17:19 05:56 Sodium 135 L 136 (137-145) mmol/L Potassium 4.9 4.2 (3.5-5.1) mmol/L Chloride 99 101 (98-107) mmol/L Carbon Dioxide 27 23.8 (22-30) mmol/L BUN 13 13.5 (9-20) mg/dL Creatinine 1.12 1.2 (0.66-1.25) mg/dL Glucose 96 91 (74-99) mg/dL Calcium 9.3 9.1 (8.4-10.2) mg/dL Total Bilirubin 0.5 (0.2-1.3) mg/dL AST 34 (17-59) U/L ALT 26 (4-49) U/L Alkaline Phosphatase 181 H (38-126) U/L Total Protein 7.5 (6.3-8.2) g/dL Albumin 4.2 (3.5-5.0) g/dL - Imaging Comments: Carotid duplex Right ICA PSV 108, ICA/CCA ratio 1.2 Left ICA PSV 134, ICA/CCA ratio 1.8 impression read as 50 to 69% stenosis of the left carotid bifurcation by peak systolic velocity, less than 50% stenosis of the right carotid bifurcations. However per the new criteria there is likely less than 50% stenosis of the left ICA Assessment and Plan Assessment: 1. Frequent falls 2. Chronic low back pain with previous surgery 3. History of previous stroke 4. No significant stenosis per carotid duplex Plan: Carotid duplex reviewed, no no significant stenosis bilaterally. Also unlikely to cause lightheadedness. There is no indication for any vascular surgical intervention at this time. Recommend outpatient surveillance with vascular surgery. Patient agreeable. Continue further medical management per primary medical team and recommendations from neurology. Patient is already on Plavix and statin, recommend continuation. The impression and plan of care has been dictated as directed. I performed a history and examination of this patient, discussed the same with the dictator. I agree with the dictator's note ,documented as a scribe. Any additional findings or plans will be noted.
[2023-11-04] MEDS: ATORVASTATIN 40 MG TAB PO SCH (20:17)
--- NOTE | 2023-11-04 20:38 | MR ---
EXAMINATION TYPE: MR lumbar spine wo con DATE OF EXAM: 11/04/2023 COMPARISON: 04/28/2022 HISTORY: Unsteady gait with back pain CONTRAST: 0 mL intravenous Gadavist. TECHNIQUE: Multiplanar, multisequence images of the lumbar spine were acquired. Significant metallic susceptibil ity artifact is evident L2-3 through L4-5. This causes limitation during some pulse sequences. Some p ulse sequences are nondiagnostic. FINDINGS: L5-S1: Minimal central protrusion is present with epidural space contact. No AP spinal canal stenosis present. Facet hypertrophy is present greater on the right. No right foraminal narrowing is present. More severe left foraminal stenosis present. Spurring may have contact and deformity of the exiting left S1 nerve root. Series 301 image 2 Clinical correlation with the radicular symptoms is recommende d. L4-L5: No definite spinal canal stenosis. Foramen cannot be evaluated. No obvious interval change fro m comparison. L3-L4: This level is essentially nondiagnostic. No obvious stenosis on T2 sagittal images. L2-L3: Very limited. The anterior thecal sac as visualized appears normal. No obvious stenosis on T2- weighted sequences. Left foramen cannot be evaluated. Right foramen is patent. L1-L2: No significant disc bulge or disc herniation. No spinal canal stenosis. No foraminal stenosi s. T12-L1: No significant disc bulge or disc herniation. No spinal canal stenosis. No foraminal stenos is. Cord terminates at the inferior L1 level. IMPRESSION: 1. Limitation due to susceptibility artifact mid lumbar spine. Some levels are nondiagnostic discusse d above. 2. No obvious spinal canal stenosis identified with limitations discussed above. 3. There appears to be some severe foraminal stenosis with possible nerve root impingement on the lef t S1 nerve root at L5-S1. Correlate with any radicular symptoms. Finding appears similar to compariso n.
--- NOTE | 2023-11-04 21:09 | CT ---
EXAMINATION TYPE: CT angio neck DATE OF EXAM: 11/04/2023 COMPARISON: None HISTORY: 73-year-old male with dizziness, Carotid stenosis. TECHNIQUE: Contiguous axial scanning of the neck performed with IV Contrast, patient injected with 10 0ml mL of Isovue 370. Coronal and sagittal reconstructions performed. 3-D reconstructions generated o n a dedicated independent workstation. CT DLP: 452 mGycm Automated exposure control for dose reduction was used. FINDINGS: Abnormal pleural parenchymal opacity in irregular subpleural thickening right greater than left upper lobes. Some corresponding volume loss at the right apex. Mild atherosclerotic arch calcifications with conventional arch vessel branching anatomy. The vertebral arteries are codominant and patent throughout the course. The V4 segment vertebral georgina ry becomes somewhat diminutive in caliber along with the visualized basilar artery. Correlate for any symptoms of chronic vertebrobasilar insufficiency. The bilateral common carotid arteries are patent. There is mild atherosclerotic calcification and plaque at the bilateral carotid bifurcations. This co ntributes to mild, less than 40% narrowing proximal left ICA and mild, less than 20% narrowing proxim al right ICA. IMPRESSION: 1. ATHEROSCLEROTIC CHANGE OF THE BILATERAL CAROTID BIFURCATIONS RESULTING IN MILD, LESS THAN 40% PROX IMAL LEFT ICA STENOSIS AND MILD LESS THAN 20% PROXIMAL RIGHT ICA NARROWING. NO HEMODYNAMICALLY SIGNIF ICANT ICA STENOSIS ON EITHER SIDE. 2. THE BILATERAL INTRACRANIAL V4 SEGMENT VERTEBRAL ARTERIES BECOME DIMINUTIVE IN CALIBER ALONG WITH T HE VISUALIZED LOWER BASILAR ARTERY. CORRELATE FOR ANY CHRONIC SYMPTOMS OF VERTEBROBASILAR INSUFFICIEN CY. 3. EXTENSIVE PLEURAL-PARENCHYMAL CHANGES IN THE VISUALIZED UPPER LUNGS. CONSIDER OUTPATIENT CT chest follow-up to assess for any changes from 09/18/2022.
[2023-11-04 21:37] VITALS: RESP 16
--- NOTE | 2023-11-04 21:43 | MR ---
EXAMINATION TYPE: MR brain wo con DATE OF EXAM: 11/04/2023 COMPARISON: NONE HISTORY: 73-year-old male with Vertigo TECHNIQUE: Multiplanar, multisequence images of the brain and brainstem were acquired without IV con trast. Diffusion weighted imaging is performed. FINDINGS: No evidence for acute infarction, hemorrhage, mass, mass effect, midline shift, herniation, effacemen t of basal cisterns, or extra-axial fluid collection. The ventricles and sulci are age-appropriate. Mild generalized supratentorial volume loss. Major intracranial flow voids are intact. Relatively smaller caliber to the basilar artery. Correlate for any chronic symptoms of vertebrobasilar insufficiency. T2/FLAIR weighted sequences show [id number] scattered punctate bright signal foci especially in the subcortical region of both cerebral hemispheres. Additional confluent changes in the periatrial white matter. There appears to be encephalomalacia and gliosis right occipital lobe. Patchy increased signal within the bilateral paramedian gogo as well. Midline structures demonstrate normal morphology. The craniocervical junction is normal. Post contrast images demonstrate no evidence of pathologic enhancement. Dural venous sinuses are pat ent. Leftward nasal septal deviation. Trace mucosal thickening ethmoid air cells and right maxillary sinus . Globes are intact. IMPRESSION: 1. Mild generalized cerebral atrophy. No acute intracranial abnormality seen. 2. scattered mild to moderate burden of T2 bright white matter changes especially in the subcortical region of both hemispheres. Also in the bilateral paramedian gogo. Most typical of chronic small vess el ischemic disease. Given symptoms, correlate to exclude changes relating to atypical migraines. 3. Relatively smaller caliber to the basilar artery. Correlate for any chronic symptoms of vertebroba silar insufficiency. 4. 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
[2023-11-04] MEDS: LIDOCAINE 4% PATCH TOPICAL ONE (23:23)
--- NOTE | 2023-11-04 23:58 | CA ---
Transthoracic Echo Report Name: Efrain Velez Age: 73 Gender: M : 1950 Exam Date: 11/04/2023 11:30 Exam Location: [facility] Ht (in): 74 Wt (lb): 200 Ordering Physician: Naun Andrews MD Attending/Referring Phys: Mend Worker Cristy Cordova RDCS Procedure CPT: Indications: dizziness, falls Cardiac Hx: Technical Quality: Fair Contrast 1: Total Dose (mL): Contrast 2: Total Dose (mL): MEASUREMENTS (Male / Female) Normal Values 2D ECHO LV Diastolic Diameter PLAX 3.6 cm 4.2 - 5.9 / 3.9 - 5.3 cm LV Systolic Diameter PLAX 2.7 cm IVS Diastolic Thickness 1.0 cm 0.6 - 1.0 / 0.6 - 0.9 cm LVPW Diastolic Thickness 1.2 cm 0.6 - 1.0 / 0.6 - 0.9 cm LV Relative Wall Thickness 0.6 RV Internal Dim ED PLAX 3.6 cm LA Volume 40.9 cm??? 18 - 58 / 22 - 52 cm??? LA Volume Index 18.7 cm???/m??? 16 - 28 cm???/m??? M-MODE Aortic Root Diameter MM 2.7 cm LA Systolic Diameter MM 3.7 cm LA Ao Ratio MM 1.4 AV Cusp Separation MM 1.6 cm DOPPLER AV Peak Velocity 122.5 cm/s AV Peak Gradient 6.0 mmHg AV Mean Velocity 90.4 cm/s AV Mean Gradient 3.6 mmHg AV Velocity Time Integral 24.1 cm LVOT Peak Velocity 86.4 cm/s LVOT Peak Gradient 3.0 mmHg LVOT Velocity Time Integral 20.4 cm MV Area PHT 6.2 cm??? Mitral E Point Velocity 59.6 cm/s Mitral A Point Velocity 62.8 cm/s Mitral E to A Ratio 0.9 MV Deceleration Time 122.6 ms MV E' Velocity 31.8 cm/s Mitral E to MV E' Ratio 1.9 TR Peak Velocity 194.1 cm/s TR Peak Gradient 15.1 mmHg Right Ventricular Systolic Press 20.1 mmHg FINDINGS Left Ventricle Left ventricular cavity size normal. No obvious regional wall motion abnormalities. Left ventricular wall thickness normal. Left ventricular ejection fraction is estimated at 55-60%. Right Ventricle Mild to moderate RVH. Mild right ventricular dilatation. Right ventricular systolic pressure within normal limits. Right Atrium Normal right atrial size. Left Atrium Normal left atrial size. Mitral Valve Structurally normal mitral valve. No mitral stenosis, regurgitation or prolapse. Aortic Valve No aortic valve stenosis or regurgitation. Tricuspid Valve Structurally normal tricuspid valve. Mild tricuspid regurgitation. Pulmonic Valve Structurally normal pulmonic valve. Trace pulmonic regurgitation. Pericardium Small pericardial effusion without tamponade physiology. Aorta Normal size aortic root and proximal ascending aorta. CONCLUSIONS Left ventricular ejection fraction 55-60% Mild to moderate RVH No mitral regurgitation Mild tricuspid regurgitation Small pericardial effusion without tamponade physiology. Previewed by: Dr. Jared Shultz DO (Electronically Signed) Final Date: 04 November 2023 23:57
[2023-11-05] MEDS: SODIUM CHLORIDE 0.9% 1,000 ML IV SCH (09:17)
--- NOTE | 2023-11-05 12:56 | P.PN ---
Subjective Progress Note Date: 11/05/23 On follow-up with the patient and he feels he is doing better otherwise no other neurological issues. He did acknowledge that he had multiple falls in the last couple weeks without loss of consciousness. Objective - Vital Signs Vital signs: Vital Signs Temp 97.5 F L 11/05/23 07:00 Pulse 80 11/05/23 11:46 Resp 16 11/05/23 07:00 BP 124/75 11/05/23 07:00 Pulse Ox 99 11/05/23 08:07 FiO2 Intake & Output 11/04/23 11/05/23 11/05/23 18:59 06:59 18:59 Intake Total 118 360 Balance 118 360 Intake: Oral 118 360 Other: Voiding Method Toilet Toilet Toilet # Voids 2 2 - Exam Some of the workup during his hospital visit consisted of: Orthostatic vitals his spine blood pressure of the 151/80 with a heart rate of 80, sitting is 102/57 with a heart rate 93 and standing is 104/60 with a heart rate of 106. Patient orthostatic is positive Plasma lactic acid vein is 0.9 Calcium is 9.3, the serum glucose is 96. CT of the head is reported as there is no acute intracranial hemorrhage, mass effect or midline shift is seen. I reviewed CT and agree with report. I feel there is old stroke over the right medial temporal superior occipital region. CT of the cervical spine is reported as there is no acute fracture or dislocation evident in the cervical spine. Carotid duplex was reported as a 50-69% stenosis of left carotid bifurcation peak systolic velocity. Less than 50% stenosis in the right carotid bifurcation. 2D echo: It is reported as left ventricle ejection fraction of 55-60%. Mild to moderate right ventricular hypertrophy. MRI of lumbar is reported as limitation due to susceptibility artifact mid lumbar spine. Some levels are nondiagnostic discussed above. No obvious spinal canal stenosis identified with limitation discussed above. There appears to be some severe form and no stenosis with possible nerve root impingement on the left S1 nerve root at the L5-S1. Correlate with any radicular symptoms. Findings appear similar to comparison. My the brain is reported as mild degenerative cerebral atrophy. No acute intra cranial abnormality seen. Scattered mild to moderate burden of T2 bright white matter changes especially in the subcortical region of both hemispheres. Also in the bilateral paramedian gogo. Most typical of chronic small vessel ischemic disease. Given his symptoms, correlate to exclude changes related to atypical migraine. Relatively small caliber of the basilar artery. Correlate for any chronic symptoms of vertebrobasilar insufficiency. Old infarct with encephalomalacia and gliosis over the right occipital lobe. CT angiography of the neck is reported as atherosclerotic change of bilateral carotid bifurcation resulting in mild, less than 40% proximal left ICA stenosis and mild less than 20% proximal right ICA stenosis narrowing. No hemodynamically significant ICA stenosis on either side. The bilateral intracranial V4 segment vertebral arteries become diminutive and caliber along with the visualized lower basilar artery. Correlate for any chronic symptoms of vertebrobasilar insufficiency. Extensive pleural parenchymal changes in the visualized upper long. Consider outpatient CT chest follow-up to assess any changes from 09/18/2022. - Labs CBC & Chem 7: 11/04/23 05:56 11/04/23 05:56 Assessment and Plan Assessment: This is a 73-year-old gentleman who presented emergency department because of a fall. He has chronic lower back pain and had 2 surgeries last the lower back surgery was in the 2022 and he continues to have unsteady gaits. Yesterday while in the parking lot of a shopping he fell but denies any loss of consciousness. He is also feeling lightheadedness. 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 On MRI Lumbar possible impingement on Left S1 nerve root. Left carotid stenosis about 50-69% on carotid duplex but on CTA is <40% stenosis Escalated hypertension History of TIAs but upon reviewing the CT is seems the patient has old right medial temporal superior occipital old stroke which is also seen on MRI of occipital stroke Plan: Positive Orthostatic hypotension: Recommend compression stocking. If ineffective consider salt tab vs midodrine vs Florinef. Will defer management to primary team. Patient is on Plavix 75 mg daily and Lipitor 40 mg daily at bedtime. Recommend orthopedic surgery team consultation for his lower back pain with falls. Physical surgery team is consulted for this left ICA stenosis initially seen on the duplex but they recommended the surveillance which I agree since on the CT angiography it's reported as less than 40% PT OT are consulted Fall precaution For his narrow caliber of basilar artery, I recommend the patient to follow-up with Dr. Edwards (Interventional Neurologist) within 2 weeks. I have placed Dr. Edwards info on discharge instruction. Recommend the patient to obtain EMG with nerve conduction study of the lower since he has chronic numbness of his feet and he stated it happened since his lower back surgery We'll defer the rest of the medical management to primary team The plan was discussed with the patient as well as a primary attending Time with Patient: Less than 30
[2023-11-05] MEDS: MIDODRINE 5 MG TAB PO SCH (13:20)
[2023-11-05 13:33] VITALS: BP 145/79; PULSE 90; TEMP 97.6
--- NOTE | 2023-11-05 14:17 | P.DS ---
Providers Date of admission: 11/03/23 20:15 Expected date of discharge: 11/05/23 Attending physician: Naun Andrews MD Consults: 11/03/23 20:06 Consult Physician Urgent Consulting Provider: Tulio Leija Consult Reason/Comments: ataxia with falls Do you want consulting provider notified?: Yes 11/05/23 10:47 Consult Physician Routine Consulting Provider: Aaron Scott Consult Reason/Comments: unsteady gait, h/o spine surgery Do you want consulting provider notified?: Yes Primary care physician: [facility] Hospital Course: 74-year-old male with a PMH of COPD with chronic hypoxic respiratory failure on 3 L nasal cannula oxygen continuously at home, CAD status post multiple stents. Patient presents to the ED for lightheadedness and unsteadiness on his feet. Symptoms ongoing for the past 2 weeks. Relates the unsteadiness to 2 back surgeries in the past. Lightheadedness worse with changes in position. Denies slurred speech, confusion, chest pain, palpitations or syncope. Reports good oral intake. Daughter at bedside reports his BP is normally controlled without medication. Head/cervical spine CT in the emergency room was unremarkable with EKG showing sinus rhythm at [address]/T wave changes noted as reviewed by me. Laboratory evaluation revealed a troponin less than 0.012, with creatinine 1.12 (at baseline), hemoglobin 12.8. Vital signs upon arrival at the emergency room were BP 140/84 with pulse 94. Neurology was consulted. MRI brain chronic small vessel ischemia, old right occipital infarct. Dr. Leija recommended outpatient follow up with Neurointerventionalist Dr. Edwards. Carotid doppler shows 50-69% L carotid, < 50% R carotid. CTA head and neck < 40% proximal L ICA, < 20% proximal ICA stenosis, dimunitive caliber basilar artery, extensive pleural-parenchymal changes upper lungs. Vascular surgery consulted, no intervention, continue ASA and Plavix, outpatient follow up. MRI L spine showed severe foraminal stenosis L5S1 but no spinal canal stenosis, artifact on MRI. Patient stated that he will never undergo another spinal surgery in the future. Advised to follow up with Dr. Scott in the outpatient setting. Orthostats were positive, started on Midodrine and IV hydration. 11/05 Patient was seen and examined. Reports no dizziness. Working well with PT and OT. Plans for discharge home with follow up with Dr. Daniels (pulmonary changes seen on CTA head and neck), Dr. Edwards (dimunitive caliber basilar artery), Dr. Vaughn (carotid stenosis) and PCP. Prescription for Midodrine sent to pharmacy. General: non toxic, no distress, appears at stated age Derm: warm, dry Head: atraumatic, normocephalic, symmetric Eyes: EOMI, no lid lag, anicteric sclera Mouth: no lip lesion, mucus membranes moist Cardiovascular: S1S2 reg, no murmur Lungs: Decreased BS bilateral, no rhonchi, no rales , no accessory muscle use Abdominal: soft, nontender to palpation, no guarding, no appreciable organomegaly Ext: no gross muscle atrophy, no edema, no contractures Neuro: no focal neuro deficits Psych: Alert, oriented, appropriate affect Discharge Diagnosis: Orthostatic hypotension Unsteady gait Dimunitive caliber basilar artery Pleural-parenchymal changes upper lungs Carotid stenosis Microcytic anemia COPD on 2L home O2 CAD This complex discharge took 35 minutes to complete. Patient Condition at Discharge: Stable Plan - Discharge Summary Discharge Rx Participant: No New Discharge Prescriptions: New Midodrine [ProAmatine] 5 mg PO AC-TID #90 tab Continue Gabapentin [Neurontin] 300 mg PO TID Cyclobenzaprine [Flexeril] 10 mg PO TID PRN PRN Reason: Muscle Pain HYDROcodone/APAP 7.5-325MG [Lambert 7.5-325] 1 tab PO QID PRN PRN Reason: Pain Magnesium 420mg 420 mg PO BID Tiotropium 2.5 Mcg/Puff [Spiriva Respimat 2.5 Mcg] 2 puff INHALATION RT-DAILY Ferrous Sulfate [Iron (65 MG Elemental)] 325 mg PO BID Ciclesonide [Alvesco] 2 puff INHALATION RT-BID Atorvastatin [Lipitor] 40 mg PO HS Pyridoxine HCl (Vitamin B6) [Pyridoxine HCl] 50 mg PO DAILY Tamsulosin [Flomax] 0.8 mg PO DAILY Sodium Bicarbonate Tab 650 mg PO BID Omeprazole 40 mg PO DAILY Naproxen 375 mg PO BID PRN PRN Reason: Pain Clopidogrel Bisulfate [Plavix] 75 mg PO DAILY Albuterol Inhaler [Ventolin Hfa Inhaler] 2 puff INHALATION RT-Q6H PRN PRN Reason: Shortness Of Breath Lidocaine 5% Patch [Lidoderm 5% Patch] 2 patch TOPICAL DAILY PRN PRN Reason: Pain FLUoxetine HCL [PROzac] 10 mg PO DAILY Discharge Medication List Clopidogrel Bisulfate [Plavix] 75 mg PO DAILY 08/16/21 [History] Cyclobenzaprine [Flexeril] 10 mg PO TID PRN 08/16/21 [History] Gabapentin [Neurontin] 300 mg PO TID 08/16/21 [History] Naproxen 375 mg PO BID PRN 08/16/21 [History] Omeprazole 40 mg PO DAILY 08/16/21 [History] Sodium Bicarbonate Tab 650 mg PO BID 08/16/21 [History] Tamsulosin [Flomax] 0.8 mg PO DAILY 08/16/21 [History] HYDROcodone/APAP 7.5-325MG [Lambert 7.5-325] 1 tab PO QID PRN 09/18/22 [History] Albuterol Inhaler [Ventolin Hfa Inhaler] 2 puff INHALATION RT-Q6H PRN 01/19/23 [History] Magnesium 420mg 420 mg PO BID 01/19/23 [History] Tiotropium 2.5 Mcg/Puff [Spiriva Respimat 2.5 Mcg] 2 puff INHALATION RT-DAILY 01/19/23 [History] Atorvastatin [Lipitor] 40 mg PO HS 11/03/23 [History] Ciclesonide [Alvesco] 2 puff INHALATION RT-BID 11/03/23 [History] FLUoxetine HCL [PROzac] 10 mg PO DAILY 11/03/23 [History] Ferrous Sulfate [Iron (65 MG Elemental)] 325 mg PO BID 11/03/23 [History] Lidocaine 5% Patch [Lidoderm 5% Patch] 2 patch TOPICAL DAILY PRN 11/03/23 [History] Pyridoxine HCl (Vitamin B6) [Pyridoxine HCl] 50 mg PO DAILY 11/03/23 [History] Midodrine [ProAmatine] 5 mg PO AC-TID #90 tab 11/05/23 [Rx] Follow up Appointment(s)/Referral(s): Mayte Vaughn DO [STAFF PHYSICIAN] - 4 Weeks Ga Edwards MD [STAFF PHYSICIAN] - 2 Weeks (Narrow caliber of basilar artery with light-headedness) Aaron Scott DO [Doctor of Osteopathic Medicine] - 1 Week [facility] [Primary Care Provider] - 1-2 days Activity/Diet/Wound Care/Special Instructions: Slow positional changes.
== END 2023-11-05 15:45 | disposition home or self-care (01) ==
LOC: EC 13:53 → 6NMEDSUR 20:15
PROVIDERS: ADMIT Internal Medicine; ATTEND Internal Medicine
DX: I95.1 Orthostatic hypotension (principal); R26.81 Unsteadiness on feet; R42 Dizziness and giddiness; S09.90XA Unspecified injury of head, initial encounter; W19.XXXA Unspecified fall, initial encounter; I25.10 Atherosclerotic heart disease of native coronary artery without angina pectoris; M54.9 Dorsalgia, unspecified; G89.29 Other chronic pain; R29.6 Repeated falls; I65.22 Occlusion and stenosis of left carotid artery; J96.11 Chronic respiratory failure with hypoxia; J44.9 Chronic obstructive pulmonary disease, unspecified; I12.9 Hypertensive chronic kidney disease with stage 1 through stage 4 chronic kidney disease, or unspecified chronic kidney disease; N18.30 Chronic kidney disease, stage 3 unspecified; F32.A Depression, unspecified; I25.2 Old myocardial infarction; Z86.73 Personal history of transient ischemic attack (TIA), and cerebral infarction without residual deficits; Z87.891 Personal history of nicotine dependence; Z95.5 Presence of coronary angioplasty implant and graft; Z99.81 Dependence on supplemental oxygen; Z79.02 Long term (current) use of antithrombotics/antiplatelets; Z79.899 Other long term (current) drug therapy
CPT/HCPCS: 99285; 36415; 94640 ×4; 94760 ×2; 93005; 93306; 97162; 97166; 80053; 80048; 83605; 84484; 85025 ×2; 93880; 72125; 70450; 70498; 70551; 72148; G0378 ×3; Q9967

== ENCOUNTER → 2024-01-20 | Outpatient (CLI) | payer OTHER ==
[2024-01-20 10:54] LABS: ALT 22 U/L (4-49); AST 28 U/L (17-59); African American GFR (CKD) 78 (>60 ml/min/1.73 sqM); Albumin 4.2 g/dL (3.5-5.0); Albumin/Globulin Ratio 1.1; Alkaline Phosphatase 187 U/L (38-126); Anion Gap 9 mmol/L; Blood Urea Nitrogen 19 mg/dL (9-20); Calcium 8.9 mg/dL (8.4-10.2); Carbon Dioxide 26 mmol/L (22-30); Chloride 100 mmol/L (98-107); Globulin 3.7 g/dL; Glucose 96 mg/dL (74-99); Non-African American GFR(CKD) 68 (>60 ml/min/1.73 sqM); Potassium 4.7 mmol/L (3.5-5.1); Sodium 135 mmol/L (137-145); Total Bilirubin 0.5 mg/dL (0.2-1.3); Total Protein 7.9 g/dL (6.3-8.2)
--- NOTE | 2024-01-20 11:50 | CT ---
EXAMINATION TYPE: CT angio head neck CT DLP: 1417.8 mGycm, Automated exposure control for dose reduction was used. DATE OF EXAM: 01/20/2024 11:33 AM COMPARISON: 11/04/2023.. 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 Axi al images are supplemented with 3D reconstructions and MIP images which were post-processed at an in dependent workstation. NASCET criteria used. Contrast used:65 mL of Isovue 370 with IV Contrast, Oral contrast used: None. FINDINGS: CTA HEAD: No evidence of acute intracranial hemorrhage, mass effect, or midline shift. The ventricles, sulci, a nd cisterns are unremarkable. Bilaterally aphakia. The visualized portions of the internal carotid arteries, middle cerebral arteries, anterior cerebral arteries, and posterior cerebral arteries are patent. Hypoplastic right A1 segment. The basilar and vertebral arteries are patent. Stable appearance of the vertebral basilar system whic h are diminutive and the intracranial portions. CTA NECK: Right Carotid System: The common carotid and external carotid arteries are patent. There is less than 25% stenosis at the c arotid bifurcation secondary to calcified/noncalcified plaque. The rest of the internal carotid arter y is patent. Left Carotid System: The common carotid and external carotid arteries are patent. There is less than 25% stenosis at the c arotid bifurcation secondary to calcified/noncalcified plaque. The rest of the internal carotid arter y is patent. Vertebral arteries are patent without evidence hemodynamically significant stenosis. Stable appearanc e of the vertebral basilar system. There is a three-vessel aortic arch. The origins of the great vessels are patent. No evidence of hemo dynamically significant stenosis. Upper thorax: Consolidation changes in the right lung near the apex with apical scarring bilaterally. Paraseptal and centrilobular emphysema changes. IMPRESSION: 1. No evidence of dissection of the cervical internal carotid arteries or vertebral arteries or any e vidence of significant stenosis at the carotid bifurcations. There is less than 25% stenosis of the bilateral carotid bifurcations due to calcified and noncalcified plaque. Findings are not changed fro m 11/04/2023. 2. Stable diminutive appearance of the intracranial portions of the vertebral arteries. No evidence o f intracranial high-grade stenosis or intracranial aneurysm. 3. Stable parenchymal findings and in the lungs.
== END | disposition home or self-care (01) ==
LOC: RADCTMAIN 10:02
PROVIDERS: ATTEND Psychiatry & Neurology Vascular Neurology
DX: I65.23 Occlusion and stenosis of bilateral carotid arteries (principal)
CPT/HCPCS: 80053; 70496; 70498; 36415; Q9967

== ENCOUNTER 2024-07-04 12:14 | Emergency (ER) | payer OTHER ==
--- NOTE | 2024-07-04 13:03 | ED ---
Lower Extremity Injury HPI - General Chief Complaint: Extremity Injury, Lower Stated Complaint: Fall/Knee Pain Time Seen by Provider: 07/04/24 12:28 Source: patient, RN notes reviewed Mode of arrival: ambulatory Limitations: no limitations - History of Present Illness Initial Comments: This is a 73-year-old male who presents to the emergency department for pain to his bilateral knees. States that yesterday he tripped and fell, landing on his right knee. This morning he fell trying to get into bed and injured his left knee this time. States that the left knee is more painful than the right. He is still able to move both legs, but states that it is painful. He has a prescription for [place] for his back, however this has not been very helpful for this pain. Denies hitting his head or sustaining any additional injuries. MD Complaint: knee injury - Related Data Home Medications Medication Instructions Recorded Confirmed Clopidogrel Bisulfate [Plavix] 75 mg PO DAILY 08/16/21 11/03/23 Cyclobenzaprine [Flexeril] 10 mg PO TID PRN 08/16/21 11/03/23 Gabapentin [Neurontin] 300 mg PO TID 08/16/21 11/03/23 Naproxen 375 mg PO BID PRN 08/16/21 11/03/23 Omeprazole 40 mg PO DAILY 08/16/21 11/03/23 Sodium Bicarbonate Tab 650 mg PO BID 08/16/21 11/03/23 Tamsulosin [Flomax] 0.8 mg PO DAILY 08/16/21 11/03/23 HYDROcodone/APAP 7.5-325MG [[place] 1 tab PO QID PRN 09/18/22 11/03/23 7.5-325] Albuterol Inhaler [Ventolin Hfa 2 puff INHALATION RT-Q6H PRN 01/19/23 11/03/23 Inhaler] Magnesium 420mg 420 mg PO BID 01/19/23 11/03/23 Tiotropium 2.5 Mcg/Puff [Spiriva 2 puff INHALATION RT-DAILY 01/19/23 11/03/23 Respimat 2.5 Mcg] Atorvastatin [Lipitor] 40 mg PO HS 11/03/23 11/03/23 Ciclesonide [Alvesco] 2 puff INHALATION RT-BID 11/03/23 11/03/23 FLUoxetine HCL [PROzac] 10 mg PO DAILY 11/03/23 11/03/23 Ferrous Sulfate [Iron (65 MG 325 mg PO BID 11/03/23 11/03/23 Elemental)] Lidocaine 5% Patch [Lidoderm 5% 2 patch TOPICAL DAILY PRN 11/03/23 11/03/23 Patch] Pyridoxine HCl (Vitamin B6) 50 mg PO DAILY 11/03/23 11/03/23 [Pyridoxine HCl] Previous Rx's Medication Instructions Recorded Midodrine [ProAmatine] 5 mg PO AC-TID #90 tab 11/05/23 Allergies Allergy/AdvReac Type Severity Reaction Status Date / Time No Known Allergies Allergy Verified 07/04/24 12:28 Review of Systems ROS Statement: Those systems with pertinent positive or pertinent negative responses have been documented in the HPI. ROS Other: All systems not noted in ROS Statement are negative. Past Medical History Past Medical History: COPD, CVA/TIA, Hypertension, Myocardial Infarction ([place]) Additional Past Medical History / Comment(s): stage 3 kidney failure, heart att ack at 30, stroke x 3 Last Myocardial Infarction Date:: unknown History of Any Multi-Drug Resistant Organisms: None Reported Past Surgical History: Back Surgery, Orthopedic Surgery Additional Past Surgical History / Comment(s): back surgery, rods and spacers placed 05/09. left hand surgery, myelogram Past Anesthesia/Blood Transfusion Reactions: No Reported Reaction Past Psychological History: Depression, PTSD Smoking Status: Former smoker Past Alcohol Use History: None Reported Past Drug Use History: None Reported - Past Family History Mother Family Medical History: Cancer Family Family Medical History: COPD Additional Family Medical History / Comment(s): brother 2 yrs ago from lung cancer. General Exam Limitations: no limitations General appearance: alert, in no apparent distress Head exam: Present: atraumatic, normocephalic, normal inspection Respiratory exam: Present: normal lung sounds bilaterally. Absent: respiratory distress, wheezes, rales, rhonchi, stridor Cardiovascular Exam: Present: regular rate, normal rhythm, normal heart sounds. Absent: systolic murmur, diastolic murmur, rubs, gallop, clicks Extremities exam: Present: other (Tenderness to palpation over both patella. Mild ecchymosis on the left patella. Full range of motion bilaterally, however this does induce pain. 2+ DP and PT pulses bilaterally) Neurological exam: Present: alert, oriented X3, CN II-XII intact Psychiatric exam: Present: normal affect, normal mood Course Vital Signs 07/04/24 07/04/24 12:24 14:25 Temperature 97.9 F 96.9 F L Pulse Rate 92 79 Respiratory 20 16 Rate Blood Pressure 122/68 102/59 O2 Sat by Pulse 92 L 98 Oximetry Medical Decision Making - Medical Decision Making This is a 73-year-old male who presents to the emergency department for knee pain. Was pt. sent in by a medical professional or institution? @ -No Did you speak to anyone other than the patient for history? @ -No Did you review nursing and triage notes? @ -Yes, and I agree, it is accurate with regards to the patient's symptoms. Were old charts reviewed? @ -No Differential Diagnosis? @ -Differential Musculoskeletal: Muscular strain, contusion, ligament sprain, fracture, arthritis, septic arthritis, bursitis, cellulitis, muscle spasm, nerve compression, DVT, arterial occlusion, herpes zoster, electrolyte abnormality, tumor.... This is not meant to be in all inclusive list EKG interpreted by me (3pts min.)? @ -Not obtained X-rays interpreted by me (1pt min.)? @ -X-ray of the bilateral knees obtained. My interpretation identifies no acute fractures. CT interpreted by me (1pt min.)? @ -Not obtained U/S interpreted by me (1pt. min.)? @ -Not obtained What testing was considered but not performed? (CT, X-rays, U/S, labs)? Why? @ -None What meds were considered but not given? Why? @ -None Did you discuss the management of the patient with other professionals? @ -No Did you reconcile home meds? @ -No Was smoking cessation discussed for >3mins.? @ -No Was critical care preformed (if so, how long)? @ -No Were there social determinants of health that impacted care today? How? (Homelessness, low income, unemployed, alcoholism, drug addiction, transportation, low edu. Level, literacy, decrease access to med. care, nursing home, rehab)? @ -No Was there de-escalation of care discussed even if they declined? (Discuss DNR or withdrawal of care, Hospice)? @ -No What co-morbidities impacted this encounter? (DM, HTN, Smoking, COPD, CAD, Cancer, CVA, Hep., AIDS, mental health diagnosis, sleep apnea, morbid obesity)? @ -Osteoarthritis Was patient admitted / discharged? @ -Discharged. X-ray of the bilateral knees obtained revealing no acute process. He does have arthritic changes noted. Patient declined any pain medication in the emergency department. He was given a knee immobilizer for the left knee, which was the most bothersome. Otherwise advised follow-up with his primary care provider. Patient discharged home in stable condition. Case discussed with ED attending Dr. Reyes. Return precautions reviewed in depth, the patient is instructed to return to the emergency department with any new, worsening, or concerning symptoms. Patient verbalized understanding. Undiagnosed new problem with uncertain prognosis? @ -None Drug Therapy requiring intensive monitoring for toxicity (Heparin, Nitro, Insulin, Cardizem)? @ -None Were any procedures done? @ -None Diagnosis/symptom? @ -Fall, bilateral knee pain Acute, or Chronic, or Acute on Chronic? @ -Acute Uncomplicated (without systemic symptoms) or Complicated (systemic symptoms)? @ -Uncomplicated Side effects of treatment? @ -None Exacerbation, Progression, or Severe Exacerbation] @ -Not applicable Poses a threat to life or bodily function? @ -No - Radiology Data Radiology results: report reviewed, image reviewed Disposition Clinical Impression: Fall, Bilateral knee pain Disposition: HOME SELF-CARE Instructions (If sedation given, give patient instructions): Knee Pain (ED) Additional Instructions: Return to the emergency department with any new, worsening, or concerning symptoms. Try applying ice for 15 to 20 minutes every 2-3 hours. Follow up with your primary care provider in 1-2 days. Is patient prescribed a controlled substance at d/c from ED?: No Referrals: None,Stated [Primary Care Provider] - 1-2 days Time of Disposition: 14:15
--- NOTE | 2024-07-04 13:42 | XR ---
EXAMINATION TYPE: XR knee complete bilateral DATE OF EXAM: 07/04/2024 1:10 PM CLINICAL INDICATION: Male, 73 years old with history of Fall; H COMPARISON: None. TECHNIQUE: XR knee complete bilateral; examined in Frontal, lateral and oblique projections. FINDINGS: No evidence of any acute osseous pathology, soft tissue swelling, or joint effusion is no latrice. Tricompartmental osteophyte formation involving the femoral condyles, tibial plateau and patella . Mild joint space narrowing. IMPRESSION: 1. No acute osseous pathology. 2. Mild tricompartmental osteoarthritic changes. [facility], , 07/04/2024 1:39 PM
[2024-07-04 14:26] VITALS: BP 102/59; PULSE 79; RESP 16; TEMP 96.9
== END 2024-07-04 14:26 | disposition home or self-care (01) ==
LOC: EC 12:14
CPT/HCPCS: 99283

== ENCOUNTER 2024-08-03 13:45 | Emergency (ER) | payer OTHER ==
[2024-08-03 13:53] VITALS: TEMP 97.5
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
--- NOTE | 2024-08-03 15:58 | XR ---
EXAMINATION TYPE: XR shoulder complete LT DATE OF EXAM: 08/03/2024 3:13 PM COMPARISON: None. CLINICAL INDICATION: Male, 74 years old with history of pain, TECHNIQUE: XR shoulder complete LT view(s) obtained. FINDINGS: The humeral head articulates with the glenoid. There is a transverse fracture of the distal left clavicle. The acromioclavicular junction appears no rmal. No additional fracture dislocations evident. A follow up study can be performed 7-10 days from acute trauma for continued pain. MRI can be performed if soft tissue evaluation would be of benefit. IMPRESSION: 1. Transverse fracture distal left clavicle [facility], , 08/03/2024 3:56 PM
[2024-08-03] MEDS: HYDROcodone/APAP 5-325MG 1 EACH TAB PO STA (16:57)
[2024-08-03 17:02] VITALS: BP 100/67; PULSE 84; RESP 16
== END 2024-08-03 17:02 | disposition home or self-care (01) ==
LOC: EC 13:45
DX: S42.032A Displaced fracture of lateral end of left clavicle, initial encounter for closed fracture (principal); Z87.891 Personal history of nicotine dependence; Z86.73 Personal history of transient ischemic attack (TIA), and cerebral infarction without residual deficits; V49.60XA Unspecified car occupant injured in collision with unspecified motor vehicles in traffic accident, initial encounter; Y92.410 Unspecified street and highway as the place of occurrence of the external cause
CPT/HCPCS: 99283

== ENCOUNTER 2024-09-20 19:28 | Observation (INO) | payer MEDICARE, OTHER ==
[2024-09-20 20:19] LABS: Basophils % (A) 0 %; Eosinophils # (A) 0.2 k/uL (0-0.7); Eosinophils % (A) 1 %; HCT 41.6 % (39.0-53.0); HGB 13.7 gm/dL (13.0-17.5); Lymphocytes # (A) 2.1 k/uL (1.0-4.8); Lymphocytes % (A) 15 %; MCH 28.8 pg (25.0-35.0); MCHC 33.1 g/dL (31.0-37.0); MCV 87.1 fL (80.0-100.0); Mean Platelet Volume 6.5; Monocytes # (A) 0.5 k/uL (0-1.0); Monocytes % (A) 4 %; Neutrophils # (A) 11.1 k/uL (1.3-7.7); Neutrophils % (A) 80 %; Platelet Count 441 k/uL (150-450); RBC 4.77 m/uL (4.30-5.90); RDW 14.4 % (11.5-15.5)
[2024-09-20] MEDS: methylPREDNISolone SOD SUCCI 40 MG/ML 1 ML VIAL IV STA (20:27)
[2024-09-20] MEDS: SODIUM CHLORIDE 0.9% 1,000 ML IV STA ×2 (20:28→21:21)
[2024-09-20] MEDS: IPRATROPIUM-ALBUTEROL 3 ML NEB INHALATION STA (20:29)
[2024-09-20 20:31] LABS: Prothrombin Time 11.2 sec (10.0-12.5)
[2024-09-20 20:33] LABS: ALT 21 U/L (4-49); AST 25 U/L (17-59); African American GFR (CKD) 75 (>60 ml/min/1.73 sqM); Albumin 4.3 g/dL (3.5-5.0); Alkaline Phosphatase 205 U/L (38-126); Anion Gap 11 mmol/L; Blood Urea Nitrogen 14 mg/dL (9-20); Calcium 9.3 mg/dL (8.4-10.2); Carbon Dioxide 24 mmol/L (22-30); Chloride 97 mmol/L (98-107); Glucose 104 mg/dL (74-99); Non-African American GFR(CKD) 64 (>60 ml/min/1.73 sqM); Potassium 4.5 mmol/L (3.5-5.1); Sodium 132 mmol/L (137-145); Total Bilirubin 0.5 mg/dL (0.2-1.3); Total Protein 8.1 g/dL (6.3-8.2)
--- NOTE | 2024-09-20 20:36 | XR ---
EXAMINATION TYPE: XR chest 2V DATE OF EXAM: 09/20/2024 8:28 PM COMPARISON: Prior chest radiograph dated 03/02/2023. CLINICAL INDICATION: Male, 74 years old with history of Weakness; [facility] TECHNIQUE: XR chest 2V Frontal and lateral views of the chest. FINDINGS: Cardiac silhouette within normal limits for size. Partially loculated right upper and right lower lobe pleural effusions. Patchy bilateral interstitial opacities. Additional consolidative airspace opacity at the right lung base. No definite pneumothorax. Left-sided rib fracture deformity noted, new from prior study dated 03/02/20 23. IMPRESSION: Loculated right pleural effusions and patchy interstitial and airspace opacities bilaterally as descr ibed above. Findings could reflect multifocal pneumonia. Recommend outpatient CT chest for further ev aluation to exclude other etiologies if symptoms persist. [facility], , 09/20/2024 8:33 PM
--- NOTE | 2024-09-20 20:59 | ED ---
General Adult HPI - General Chief complaint: Weakness Stated complaint: falls Time Seen by Provider: 09/20/24 19:50 Source: patient, RN notes reviewed, old records reviewed Mode of arrival: ambulatory Limitations: no limitations - History of Present Illness Initial comments: Patient is a 74-year-old male who presents emergency department complaining of worsening weakness as well as worsening lightheadedness ongoing for a few days. Endorses a chronic productive cough that is also been somewhat worse however sputum is still clear white in color. Has a history of COPD, chronic hypoxic respiratory failure on 2 L nasal cannula oxygen at home at baseline. No known sick contacts. Denies any chest pain, nausea, vomiting, diarrhea. Denies any abdominal pain. Has no other acute complaints at this time. Former tobacco user. Has been clean for over 10 years. Presents for further evaluation. States he chronically is off balance due to poor sensation and chronic peripheral neuropathy in bilateral lower extremities which affects his p roprioception. - Related Data Home Medications Medication Instructions Recorded Confirmed Clopidogrel Bisulfate [Plavix] 75 mg PO DAILY 08/16/21 11/03/23 Cyclobenzaprine [Flexeril] 10 mg PO TID PRN 08/16/21 11/03/23 Gabapentin [Neurontin] 300 mg PO TID 08/16/21 11/03/23 Naproxen 375 mg PO BID PRN 08/16/21 11/03/23 Omeprazole 40 mg PO DAILY 08/16/21 11/03/23 Sodium Bicarbonate Tab 650 mg PO BID 08/16/21 11/03/23 Tamsulosin [Flomax] 0.8 mg PO DAILY 08/16/21 11/03/23 HYDROcodone/APAP 7.5-325MG [[place] 1 tab PO QID PRN 09/18/22 11/03/23 7.5-325] Albuterol Inhaler [Ventolin Hfa 2 puff INHALATION RT-Q6H PRN 01/19/23 11/03/23 Inhaler] Magnesium 420mg 420 mg PO BID 01/19/23 11/03/23 Tiotropium 2.5 Mcg/Puff [Spiriva 2 puff INHALATION RT-DAILY 01/19/23 11/03/23 Respimat 2.5 Mcg] Atorvastatin [Lipitor] 40 mg PO HS 11/03/23 11/03/23 Ciclesonide [Alvesco] 2 puff INHALATION RT-BID 11/03/23 11/03/23 FLUoxetine HCL [PROzac] 10 mg PO DAILY 11/03/23 11/03/23 Ferrous Sulfate [Iron (65 MG 325 mg PO BID 11/03/23 11/03/23 Elemental)] Lidocaine 5% Patch [Lidoderm 5% 2 patch TOPICAL DAILY PRN 11/03/23 11/03/23 Patch] Pyridoxine HCl (Vitamin B6) 50 mg PO DAILY 11/03/23 11/03/23 [Pyridoxine HCl] Previous Rx's Medication Instructions Recorded Midodrine [ProAmatine] 5 mg PO AC-TID #90 tab 11/05/23 HYDROcodone/APAP 5-325MG [[place] 1 tab PO Q6HR PRN 3 Days #12 tab 08/03/24 5-325] Allergies Allergy/AdvReac Type Severity Reaction Status Date / Time No Known Allergies Allergy Verified 09/20/24 19:35 Review of Systems ROS Statement: Those systems with pertinent positive or pertinent negative responses have been documented in the HPI. Review of Systems: CONST: Denies fever EYES: Denies blurry vision ENT: Denies nasal congestion C/V: Denies Chest pain RESP: Endorses cough, congestion GI: Denies abdominal pain : Denies dysuria SKIN: Denies rash. MSK: Denies joint pain. NEURO: Denies headache ROS Other: All systems not noted in ROS Statement are negative. Past Medical History Past Medical History: COPD, CVA/TIA, Hyperlipidemia, Hypertension, [place]ocardial Infarction ([place]) Additional Past Medical History / Comment(s): stage 3 kidney failure, heart attack at 30, stroke x 3 Last Myocardial Infarction Date:: unknown History of Any Multi-Drug Resistant Organisms: None Reported Past Surgical History: Back Surgery, Orthopedic Surgery Additional Past Surgical History / Comment(s): back surgery, rods and spacers placed 05/09. left hand surgery, myelogram Past Anesthesia/Blood Transfusion Reactions: No Reported Reaction Past Psychological History: Depression, PTSD Smoking Status: Former smoker Past Alcohol Use History: None Reported Past Drug Use History: None Reported - Past Family History Mother Family Medical History: Cancer Family Family Medical History: COPD Additional Family Medical History / Comment(s): brother 2 yrs ago from lung cancer. General Exam - General Exam Comments Initial Comments: General: Appears in no acute distress. HEAD: Normal with no signs of head trauma. EYES: EOMI ENT: Hearing grossly intact, normal oropharynx. RESPIRATORY: Breath sounds bilaterally. Hypoxic on room air but improved on his baseline 2 L nasal cannula oxygen. No significant increased work of breathing. C/V: Regular rate and rhythm. S1 and S2 auscultated, no edema, peripheral pulses 2+ and intact throughout ABD: Abd is soft, nontender, nondistended EXT: Normal range of motion, no obvious deformity SKIN: No rashes or lesions observed on exposed skin. NEURO: Alert and oriented x 4. NIH is 0. GCS 15. No focal deficits. Chronic bilateral lower extremity decree sensation to light touch. Limitations: no limitations Course Vital Signs 09/20/24 09/20/24 09/20/24 19:32 20:30 20:40 Temperature 97.8 F Pulse Rate 94 86 86 Respiratory 18 Rate Blood Pressure 138/79 O2 Sat by Pulse 99 Oximetry Medical Decision Making - Medical Decision Making Was pt. sent in by a medical professional or institution (, PA, CDC ASSOCIATE, urgent care, hospital, or skilled nursing...) When possible be specific @ -No Did you speak to anyone other than the patient for history (EMS, parent, family, police, friend...)? What history was obtained from this source @ -No Did you review nursing and triage notes (agree or disagree)? Why? @ -I reviewed and agree with nursing and triage notes Were old charts reviewed (outside hosp., previous admission, EMS record, old EKG, old radiological studies, urgent care reports/EKG's, skilled nursing records)? Report findings @ -No old charts were reviewed Differential Diagnosis (chest pain, altered mental status, abdominal pain women, abdominal pain men, vaginal bleeding, weakness, fever, dyspnea, syncope, headache, dizziness, GI bleed, back pain, seizure, CVA, palpatations, mental health, musculoskeletal)? @ -COVID, flu, RSV, pneumonia. This list is not all inclusive. EKG interpreted by me (3pts min.). @ -As above X-rays interpreted by me (1pt min.). @ -Chest x-ray reveals multifocal pneumonia. CT interpreted by me (1pt min.). @ -None done U/S interpreted by me (1pt. min.). @ -None done What testing was considered but not performed or refused? (CT, X-rays, U/S, labs)? Why? @ -None What meds were considered but not given or refused? Why? @ -None Did you discuss the management of the patient with other professionals (professionals i.e. , PA, CDC ASSOCIATE, lab, RT, psych nurse, social research assistant, quartz orientator, teacher, protective officer, caseworker)? Give summary @ -Discussed with the admitting provider, Dr. Andrews who accepted the admission. Was smoking cessation discussed for >3mins.? @ -No Was critical care preformed (if so, how long)? @ -No Were there social determinants of health that impacted care today? How? (Homelessness, low income, unemployed, alcoholism, drug addiction, transportation, low edu. Level, literacy, decrease access to med. care, skilled nursing, rehab)? @ -No Was there de-escalation of care discussed even if they declined (Discuss DNR or withdrawal of care, Hospice)? DNR status @ -No What co-morbidities impacted this encounter? (DM, HTN, Smoking, COPD, CAD, Cancer, CVA, ARF, Chemo, Hep., AIDS, mental health diagnosis, sleep apnea, morbid obesity)? @ -COPD, chronic hypoxic respiratory failure Was patient admitted / discharged? Hospital course, mention meds given and route, prescriptions, significant lab abnormalities, going to OR and other pertinent info. @ -Based on patient's presentation and physical exam, presents with weakness, cough, as well as increased poor balance secondary to chronic lower extremity neuropathy and decreased proprioception. We will obtain respiratory and infectious workup. Patient has no focal neurological deficits other than his chronic neuropathy as well as poor proprioception. Patient was in agreement this plan. He will receive IV steroids, breathing treatment, 1 L fluid bolus. Vital signs within acceptable limits when on his baseline 2 L nasal cannula o xygen. Laboratory studies remarkable for leukocytosis of 14. Viral swabs are negative. Chest x-ray reveals multifocal pneumonia. EKG shows no signs of acute ischemia. I discussed results with the patient. Patient will be admitted to the hospital due to his multiple risk factors as well as the multifocal pneumonia. Started on IV Rocephin and azithromycin. Blood cultures obtained and sent. Consulted pulmonology. Will continue with IV fluids, IV steroids, breathing treatments. Patient was in agreement this plan. Vitals within acceptable limits at time of admission. I discussed the case with the admitting provider, Dr. Andrews who accepted the admission. Undiagnosed new problem with uncertain prognosis? @ -No Drug Therapy requiring intensive monitoring for toxicity (Heparin, Nitro, Insulin, Cardizem)? @ -No Were any procedures done? @ -No Diagnosis/symptom? @ -COPD with chronic hypoxic respiratory failure, pneumonia, weakness Acute, or Chronic, or Acute on Chronic? @ -Acute Uncomplicated (without systemic symptoms) or Complicated (systemic symptoms)? @ -Complicated Side effects of treatment? @ -No Exacerbation, Progression, or Severe Exacerbation? @ -No Poses a threat to life or bodily function? How? (Chest pain, [place], [place], pneumonia, PE, COPD, DKA, ARF, appy, cholecystitis, CVA, Diverticulitis, Homicidal, Suicidal, threat to staff... and all critical care pts) @ -Yes - Lab Data Result diagrams: 09/20/24 20:09 09/20/24 20:09 Lab Results 09/20/24 09/20/24 09/20/24 Range/Units 20:09 20:09 20:09 WBC 14.0 H (3.8-10.6) k/uL RBC 4.77 (4.30-5.90) m/uL Hgb 13.7 (13.0-17.5) gm/dL Hct 41.6 (39.0-53.0) % MCV 87.1 (80.0-100.0) fL MCH 28.8 (25.0-35.0) pg MCHC 33.1 (31.0-37.0) g/dL RDW 14.4 (11.5-15.5) % Plt Count 441 (150-450) k/uL MPV 6.5 Neutrophils % 80 % Lymphocytes % 15 % Monocytes % 4 % Eosinophils % 1 % Basophils % 0 % Neutrophils # 11.1 H (1.3-7.7) k/uL Lymphocytes # 2.1 (1.0-4.8) k/uL Monocytes # 0.5 (0-1.0) k/uL Eosinophils # 0.2 (0-0.7) k/uL Basophils # 0.0 (0-0.2) k/uL PT 11.2 (10.0-12.5) sec INR 1.0 (<1.2) APTT 26.0 (22.0-30.0) sec Sodium 132 L (137-145) mmol/L Potassium 4.5 (3.5-5.1) mmol/L Chloride 97 L (98-107) mmol/L Carbon Dioxide 24 (22-30) mmol/L Anion Gap 11 mmol/L BUN 14 (9-20) mg/dL Creatinine 1.13 (0.66-1.25) mg/dL Est GFR (CKD-EPI)AfAm 75 (>60 ml/min/1.73 sqM) Est GFR (CKD-EPI)NonAf 64 (>60 ml/min/1.73 sqM) Glucose 104 H (74-99) mg/dL Plasma Lactic Acid Marvin (0.7-2.0) mmol/L Calcium 9.3 (8.4-10.2) mg/dL Magnesium 2.0 (1.6-2.3) mg/dL Total Bilirubin 0.5 (0.2-1.3) mg/dL AST 25 (17-59) U/L ALT 21 (4-49) U/L Alkaline Phosphatase 205 H (38-126) U/L Total Protein 8.1 (6.3-8.2) g/dL Albumin 4.3 (3.5-5.0) g/dL Influenza Type A (PCR) (Not Detectd) Influenza Type B (PCR) (Not Detectd) RSV (PCR) (Not Detectd) SARS-CoV-2 (PCR) (Not Detectd) 09/20/24 09/20/24 Range/Units 20:09 20:09 WBC (3.8-10.6) k/uL RBC (4.30-5.90) m/uL Hgb (13.0-17.5) gm/dL Hct (39.0-53.0) % MCV (80.0-100.0) fL MCH (25.0-35.0) pg MCHC (31.0-37.0) g/dL RDW (11.5-15.5) % Plt Count (150-450) k/uL MPV Neutrophils % % Lymphocytes % % Monocytes % % Eosinophils % % Basophils % % Neutrophils # (1.3-7.7) k/uL Lymphocytes # (1.0-4.8) k/uL Monocytes # (0-1.0) k/uL Eosinophils # (0-0.7) k/uL Basophils # (0-0.2) k/uL PT (10.0-12.5) sec INR (<1.2) APTT (22.0-30.0) sec Sodium (137-145) mmol/L Potassium (3.5-5.1) mmol/L Chloride (98-107) mmol/L Carbon Dioxide (22-30) mmol/L Anion Gap mmol/L BUN (9-20) mg/dL Creatinine (0.66-1.25) mg/dL Est GFR (CKD-EPI)AfAm (>60 ml/min/1.73 sqM) Est GFR (CKD-EPI)NonAf (>60 ml/min/1.73 sqM) Glucose (74-99) mg/dL Plasma Lactic Acid Marvin 0.9 (0.7-2.0) mmol/L Calcium (8.4-10.2) mg/dL Magnesium (1.6-2.3) mg/dL Total Bilirubin (0.2-1.3) mg/dL AST (17-59) U/L ALT (4-49) U/L Alkaline Phosphatase (38-126) U/L Total Protein (6.3-8.2) g/dL Albumin (3.5-5.0) g/dL Influenza Type A (PCR) Not Detected (Not Detectd) Influenza Type B (PCR) Not Detected (Not Detectd) RSV (PCR) Not Detected (Not Detectd) SARS-CoV-2 (PCR) Not Detected (Not Detectd) - EKG Data -: EKG Interpreted by Me EKG Comments: 12-lead Electrocardiogram Interpretation Note EKG was reviewed and interpreted by myself. 12-lead ECG performed at 1940 is interpreted by me as revealing normal sinus rhythm at a rate of 92 beats per minute. [place] is normal. AR interval is 178 ms, QRS duration is 88 ms, QTc is 398 ms. There were no ST or T wave abnormalities to suggest myocardial ischemia or injury. R wave progression across the precordium was satisfactory. By my interpretation this EKG is non-diagnostic for acute ischemia. Disposition Clinical Impression: COPD (chronic obstructive pulmonary disease), Pneumonia, Chronic hypoxic respiratory failure, Weakness Disposition: ADMITTED IP TO THIS HOSP Condition: Stable Referrals: SUHAS CHAVARRIA NPC [Primary Care Provider] - 1-2 days Time of Disposition: 21:00
[2024-09-20] MEDS ORDERED: PNEUMONIA PROTOCOL UTILIZED 1 EACH MISC PO PRN (21:03)
[2024-09-20] MEDS ORDERED: NALOXONE 0.4 MG/ML 1 ML VIAL IV PRN (21:05)
[2024-09-20] MEDS: AZITHROMYCIN 500 MG in SODIUM CHLORIDE 0.9% 250 ML IVPB STA (21:53)
[2024-09-20] MEDS: IPRATROPIUM-ALBUTEROL 3 ML NEB INHALATION SCH (23:30)
[2024-09-20] MEDS ORDERED: RX INFO: IV CONTRAST WAS GIVEN 1 EACH MISC MISCELLANE PRN (23:41)
[2024-09-21] MEDS: HEPARIN SODIUM,PORCINE 5,000 UNIT/ML 1 ML VIAL SQ SCH (00:01)
--- NOTE | 2024-09-21 00:57 | P.HPIM ---
History of Present Illness H&P Date: 09/20/24 Patient is a 74-year-old male with PMH of COPD with chronic hypoxic respiratory failure on nasal cannula oxygen at home, hypertension, hyperlipidemia, BPH, and multiple back surgeries who presents to the ED for numbness in legs and feet which he states began after his surgery. He states he has had 4 falls in the last 2 days. He states he often feels unsteady on his feet and that he cannot feel them and has to look down to make sure they are in front of him. He also states that they "give out" on him sporadically. He states that he uses a walker at home and is in the process of getting a wheelchair for when he is outside of his home. The patient also reports a cough which is worse than usual and productive of thick white phlegm. He also notes somewhat progressive shortness of breath over the past several days, despite using his prescribed home oxygen. [facility] Patient denies hitting his head or loss of consciousness, denies chest pain, nausea, vomiting, diarrhea, chills, abdominal pain or lower extremity swelling. ED documentation reviewed. Vitals on admission temperature 97.8, heart rate 94, respiratory rate 18, blood pressure 138/79, oxygen saturation 99% on room air EKG independently interpreted as sinus rhythm with ventricular rate of 92 bpm, QTc 398ms CXR shows loculated right pleural effusions and patchy interstitial and airspace opacities bilaterally Labs on admission show WBC 14, hemoglobin 13.7, hematocrit 41.6, platelets 441. PT 11.2, INR 1, PTT 26. Sodium 132, potassium 4.5, chloride 97, bicarb 24, BUN 14, creatinine 1.13, glucose 104. Viral serologies for influenza A/B, RSV, COVID were all negative Review of systems: Pertinent positives and negatives as discussed in HPI, a complete review of systems was performed and all other systems are negative. PMH: COPD PSH: Multiple back surgeries with hardware and screws placed Allergies: None Social history: Lives at home with Tobacco: Former, quit 13 years ago Alcohol: None Recreational drugs: none Travel: none Sick contacts: none Physical examination: Vital signs reviewed General: nontoxic, no distress, appears at stated age Derm: warm, dry, intact Head: atraumatic, normocephalic, symmetric Eyes: anicteric sclera Mouth: no lip lesion, mucus membranes moist Cardiovascular: S1 S2 reg, no murmur Lungs: Rhonchi noted bilaterally throughout lung [place] Abdominal: soft, non-tender to palpation, nondistended Extremities: No cyanosis, clubbing, or pedal edema. Neuro: Alert, Oriented to person, not to time and place, Gross neurological examination did not reveal any focal deficits. Cranial nerves II to XII grossly intact. Bilateral upper and lower extremity muscle strength intact and sensation intact. Psych: well appearing, appropriate affect Assessment/Plan: Patient is a 74-year-old male who presents emergency department complaining of worsening weakness as well as worsening lightheadedness ongoing for a few days as well as shortness of breath. Admitted for further management of PNA. Active: # Community Acquired Pneumonia C/w Zithromax 500 mg daily and Rocephin IV 2 g daily Follow-up sputum and Legionella cultures F/u procalcitonin levels # Acute COPD exacerbation w/ chronic hypoxic resp failure C/w DuoNebs every 4 hours RTC and QID prn C/w Solu-Medrol 40 mg IV every 8 hours Consult Pulmonary medicine # Unsteady gait and debility Order PT consult # Hyponatremia, hypochloremic Initiate NS 130 ml/hr F: 0.9% NS at 130 mL/h E: Replete as needed N: Heart healthy diet A: As tolerated DVT prophylaxis: SCDs, patient refused Heparin or Lovenox The patient is admitted with an anticipated more than 2 midnight stay for evaluation of pneumonia CODE STATUS: Full code Discussed with: Patient Anticipated discharge place: Home Past Medical History Past Medical History: COPD, CVA/TIA, Hyperlipidemia, Hypertension, Myocardial Infarction ([place]) Additional Past Medical History / Comment(s): stage 3 kidney failure, heart attack at 30, stroke x 3 Last Myocardial Infarction Date:: unknown History of Any Multi-Drug Resistant Organisms: None Reported Past Surgical History: Back Surgery, Orthopedic Surgery Additional Past Surgical History / Comment(s): back surgery, rods and spacers placed 05/09. left hand surgery, myelogram Past Anesthesia/Blood Transfusion Reactions: No Reported Reaction Past Psychological History: Depression, PTSD Smoking Status: Former smoker Past Alcohol Use History: None Reported Past Drug Use History: None Reported - Past Family History Mother Family Medical History: Cancer Family Family Medical History: COPD Additional Family Medical History / Comment(s): brother 2 yrs ago from lung cancer. Medications and Allergies Home Medications Medication Instructions Recorded Confirmed Type Clopidogrel Bisulfate [Plavix] 75 mg PO DAILY 08/16/21 11/03/23 History Cyclobenzaprine [Flexeril] 10 mg PO TID PRN 08/16/21 11/03/23 History Gabapentin [Neurontin] 300 mg PO TID 08/16/21 11/03/23 History Naproxen 375 mg PO BID PRN 08/16/21 11/03/23 History Omeprazole 40 mg PO DAILY 08/16/21 11/03/23 History Sodium Bicarbonate Tab 650 mg PO BID 08/16/21 11/03/23 History Tamsulosin [Flomax] 0.8 mg PO DAILY 08/16/21 11/03/23 History HYDROcodone/APAP 7.5-325MG [[place] 1 tab PO QID PRN 09/18/22 11/03/23 History 7.5-325] Albuterol Inhaler [Ventolin Hfa 2 puff INHALATION RT-Q6H PRN 01/19/23 11/03/23 History Inhaler] Magnesium 420mg 420 mg PO BID 01/19/23 11/03/23 History Tiotropium 2.5 Mcg/Puff [Spiriva 2 puff INHALATION RT-DAILY 01/19/23 11/03/23 History Respimat 2.5 Mcg] Atorvastatin [Lipitor] 40 mg PO HS 11/03/23 11/03/23 History Ciclesonide [Alvesco] 2 puff INHALATION RT-BID 11/03/23 11/03/23 History FLUoxetine HCL [PROzac] 10 mg PO DAILY 11/03/23 11/03/23 History Ferrous Sulfate [Iron (65 MG 325 mg PO BID 11/03/23 11/03/23 History Elemental)] Lidocaine 5% Patch [Lidoderm 5% 2 patch TOPICAL DAILY PRN 11/03/23 11/03/23 History Patch] Pyridoxine HCl (Vitamin B6) 50 mg PO DAILY 11/03/23 11/03/23 History [Pyridoxine HCl] Midodrine [ProAmatine] 5 mg PO AC-TID #90 tab 11/05/23 Rx HYDROcodone/APAP 5-325MG [[place] 1 tab PO Q6HR PRN 3 Days #12 tab 08/03/24 Rx 5325] Allergies Allergy/AdvReac Type Severity Reaction Status Date / Time No Known Allergies Allergy Verified 09/20/24 19:35 Physical Exam Vitals: Vital Signs Temp Pulse Resp BP Pulse Ox 09/20/24 21:32 90 19 153/82 97 09/20/24 20:40 86 09/20/24 20:30 86 09/20/24 19:32 97.8 F 94 18 138/79 99 Intake and Output 09/20/24 09/20/24 09/20/24 06:59 14:59 22:59 Other: Weight 90.718 kg Results CBC & Chem 7: 09/20/24 20:09 09/20/24 20:09 Labs: Abnormal Lab Results - Last 24 Hours (Table) 09/20/24 09/20/24 Range/Units 20:09 20:09 WBC 14.0 H (3.8-10.6) k/uL Neutrophils # 11.1 H (1.3-7.7) k/uL Sodium 132 L (137-145) mmol/L Chloride 97 L (98-107) mmol/L Glucose 104 H (74-99) mg/dL Alkaline Phosphatase 205 H (38-126) U/L
[2024-09-21] MEDS: HYDROcodone/APAP 5-325MG 1 EACH TAB PO STA (01:38)
[2024-09-21] MEDS: methylPREDNISolone SOD SUCCI 40 MG/ML 1 ML VIAL IV SCH (03:19)
[2024-09-21 05:09] LABS: Appearance,Urine Clear (Clear); Bacteria,Urine Rare /hpf; Bilirubin,Urine Negative (Negative); Blood,Urine Negative (Negative); Color,Urine Colorless; Glucose,Urine (UA) Negative (Negative); Ketones,Urine Negative (Negative); Leukocyte Esterase,Urine Large (Negative); Mucus,Urine Rare /hpf; Nitrite,Urine Negative (Negative); Protein,Urine Negative (Negative); RBC,Urine 3 /hpf (0-5); Specific Gravity,Urine 1.023 (1.001-1.035); Urobilinogen,Urine <2.0 mg/dL (<2.0); WBC,Urine 40 /hpf (0-5)
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
[2024-09-21] MEDS: SODIUM CHLORIDE 0.9% 1,000 ML IV SCH (06:51)
[2024-09-21 07:11] LABS: Basophils % (A) 0 %; Eosinophils % (A) 0 %; HCT 35.3 % (39.0-53.0); HGB 11.3 gm/dL (13.0-17.5); Lymphocytes # (A) 0.8 k/uL (1.0-4.8); Lymphocytes % (A) 8 %; MCH 28.6 pg (25.0-35.0); MCHC 32.2 g/dL (31.0-37.0); MCV 89.1 fL (80.0-100.0); Mean Platelet Volume 6.4; Monocytes # (A) 0.1 k/uL (0-1.0); Monocytes % (A) 1 %; Neutrophils # (A) 9.2 k/uL (1.3-7.7); Neutrophils % (A) 90 %; Platelet Count 379 k/uL (150-450); RBC 3.96 m/uL (4.30-5.90); RDW 14.2 % (11.5-15.5); WBC 10.2 k/uL (3.8-10.6)
[2024-09-21 07:41] LABS: ALT 18 U/L (4-49); AST 19 U/L (17-59); African American GFR (CKD) 89 (>60 ml/min/1.73 sqM); Albumin 3.6 g/dL (3.5-5.0); Alkaline Phosphatase 166 U/L (38-126); Anion Gap 10 mmol/L; Blood Urea Nitrogen 12 mg/dL (9-20); Carbon Dioxide 21 mmol/L (22-30); Chloride 101 mmol/L (98-107); Glucose 196 mg/dL (74-99); Non-African American GFR(CKD) 77 (>60 ml/min/1.73 sqM); Potassium 4.8 mmol/L (3.5-5.1); Sodium 132 mmol/L (137-145); Total Bilirubin 0.1 mg/dL (0.2-1.3); Total Protein 6.9 g/dL (6.3-8.2)
[2024-09-21] MEDS: SYMBICORT 160-4.5 MCG INHALER INHALATION SCH (08:56)
[2024-09-21] MEDS: AZITHROMYCIN 500 MG TAB PO SCH (09:19)
--- NOTE | 2024-09-21 13:33 | XR ---
EXAMINATION TYPE: XR chest 2V DATE OF EXAM: 09/21/2024 10:57 AM COMPARISON: 09/20/2024 , CT 10-14 CLINICAL INDICATION: Male, 74 years old with history of pneumonia, TECHNIQUE: XR chest 2V view(s) obtained. FINDINGS: The heart size is normal. The pulmonary vasculature is normal. Chronic thickening is present at the bilateral lung apices greater on the right. Some pleural thicken ing is likely along the right chest wall there is improvement of the right lower lobe infiltrate. IMPRESSION: 1. Improving right lower lobe infiltrate. 2. Chronic-appearing changes at the lung apices [facility], , 09/21/2024 1:31 PM
[2024-09-21] MEDS ORDERED: guaiFENesin 600 MG TABLET.ER PO PRN (14:28)
[2024-09-21] MEDS ORDERED: LIDOCAINE 4% PATCH TOPICAL PRN (14:28)
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
[2024-09-21] MEDS: oxyCODONE-APAP 10-325MG 1 EACH TAB PO PRN (15:36)
[2024-09-21] MEDS: GABAPENTIN 300 MG CAP PO SCH (15:36)
--- NOTE | 2024-09-21 19:24 | CT ---
EXAMINATION TYPE: CT chest w con DATE OF EXAM: 09/21/2024 1:26 AM COMPARISON: 09/18/2022 CLINICAL INDICATION: Male, 74 years old with history of loculated effusions, LOCULATED EFFUSIONS TECHNIQUE: Axial images were obtained at 5 mm thick sections. Reconstructed images are reviewed on [employer] computer in the coronal plane. Contrast used:70ML mL of Isovue 300 with IV Contrast, (none if empty) Oral contrast used: (none if empty) CT DLP: 317.8 mGycm, Automated exposure control for dose reduction was used. FINDINGS: Portion of the thyroid visualized is normal. Pleural calcifications along the anterior lateral right lower lung field. Some mild pleural-based joyce cifications along the anterolateral left chest. Posterior apical consolidations are present. This could be some pulmonary fibrosis and scarring. Neop lasm is not excluded. Findings however appear relatively stable from the 09/18/2022 comparison. No enlarged mediastinal or hilar adenopathy is evident. The ascending aorta diameter at the level o f the main pulmonary artery is 3.3 cm. The main pulmonary artery diameter at the bifurcation is 2.4 cm. Mild coronary artery calcifications present. Limited CT sections are obtained through the upper abdomen. Abdomen is essentially unremarkable. IMPRESSION: 1. Chronic scarring bilateral lung apices greater on the right. Findings appear similar to 2021 CT. 2. Pleural-based calcification may reflect prior asbestos exposure. [facility], , 09/21/2024 7:22 PM
[2024-09-21] MEDS: CYCLOBENZAPRINE 10 MG TAB PO PRN (19:27)
[2024-09-21] MEDS: MAGNESIUM OXIDE 400 MG TAB PO SCH (21:22)
[2024-09-21] MEDS: ATORVASTATIN 40 MG TAB PO SCH (21:22)
[2024-09-21] MEDS: FERROUS SULFATE 325 MG TAB PO SCH (21:22)
[2024-09-21] MEDS: SODIUM BICARBONATE TAB 650 MG TAB PO SCH (21:22)
[2024-09-22] MEDS ORDERED: methylPREDNISolone SOD SUCCI 40 MG/ML 1 ML VIAL IV SCH (09:00)
[2024-09-22] MEDS: TAMSULOSIN 0.4 MG CAP.ER.24H PO SCH (09:09)
[2024-09-22] MEDS: FLUoxetine HCL 20 MG CAP PO SCH (09:09)
[2024-09-22] MEDS: PYRIDOXINE 50 MG TAB PO SCH (09:09)
[2024-09-22] MEDS: CLOPIDOGREL 75 MG TAB PO SCH (09:10)
[2024-09-22] MEDS: PANTOPRAZOLE 40 MG TABLET PO SCH (09:10)
[2024-09-22 09:11] LABS: Basophils # (A) 0.01 X 10*3/uL (0.00-0.10); Basophils % (A) 0.1 %; Eosinophils # (A) 0 X 10*3/uL (0.04-0.35); Eosinophils % (A) 0 %; HCT 33.3 % (39.6-50.0); HGB 10.8 g/dL (13.0-17.0); Lymphocytes # (A) 1.17 X 10*3/uL (0.90-5.00); Lymphocytes % (A) 5.9 %; MCH 28.2 pg (27.0-32.0); MCHC 32.4 g/dL (32.0-37.0); MCV 86.9 FL (80.0-97.0); Mean Platelet Volume 8.2 FL (9.5-12.2); Monocytes # (A) 0.74 X 10*3/uL (0.20-1.00); Monocytes % (A) 3.8 %; NRBC Per 100 WBC 0 X 10*3/uL (0.00-0.01); Neutrophils # (A) 17.52 X 10*3/uL (1.80-7.70); Platelet Count 354 X 10*3/uL (140-440); RBC 3.83 X 10*6/uL (4.40-5.60); RDW 14.3 % (11.5-14.5); WBC 19.67 X 10*3/uL (4.50-10.00)
[2024-09-22] MEDS: predniSONE 20 MG TAB PO SCH (09:15)
[2024-09-22 09:24] LABS: BUN/Creat Ratio 10.92 Ratio (12.00-20.00); Blood Urea Nitrogen 13.1 mg/dL (9.0-27.0); Carbon Dioxide 22.2 mmol/L (21.6-31.8); Chloride 100 mmol/L (96-109); Glucose 151 mg/dL (70-110); Potassium 4.6 mmol/L (3.5-5.5); Sodium 134 mmol/L (135-145)
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
[2024-09-22] MEDS: ENOXAPARIN 40 MG/0.4 ML SYRINGE SQ SCH (13:14)
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
[2024-09-22 19:24] VITALS: RESP 16
[2024-09-23 08:02] VITALS: BP 127/79; TEMP 97.3
[2024-09-23 09:44] VITALS: PULSE 88
[2024-09-23 09:49] LABS: Basophils # (A) 0.03 X 10*3/uL (0.00-0.10); Basophils % (A) 0.2 %; Eosinophils # (A) 0 X 10*3/uL (0.04-0.35); Eosinophils % (A) 0 %; HCT 35.8 % (39.6-50.0); HGB 11.4 g/dL (13.0-17.0); Lymphocytes # (A) 1.49 X 10*3/uL (0.90-5.00); Lymphocytes % (A) 9.8 %; MCH 28.9 pg (27.0-32.0); MCHC 31.8 g/dL (32.0-37.0); MCV 90.9 FL (80.0-97.0); Mean Platelet Volume 8.7 FL (9.5-12.2); Monocytes # (A) 0.47 X 10*3/uL (0.20-1.00); Monocytes % (A) 3.1 %; NRBC Per 100 WBC 0 X 10*3/uL (0.00-0.01); Neutrophils # (A) 12.96 X 10*3/uL (1.80-7.70); Neutrophils % (A) 85.6 %; Platelet Count 346 X 10*3/uL (140-440); RBC 3.94 X 10*6/uL (4.40-5.60); RDW 14.6 % (11.5-14.5); WBC 15.14 X 10*3/uL (4.50-10.00)
[2024-09-23 10:08] LABS: BUN/Creat Ratio 13.45 Ratio (12.00-20.00); Blood Urea Nitrogen 14.8 mg/dL (9.0-27.0); Calcium 8.9 mg/dL (8.7-10.3); Chloride 99 mmol/L (96-109); Glucose 139 mg/dL (70-110); Potassium 4.6 mmol/L (3.5-5.5); Sodium 135 mmol/L (135-145)
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
== END 2024-09-23 13:35 | disposition home or self-care (01) ==
LOC: EC 19:28 → 6NMEDSUR 21:05 → 5NMEDONC 09-21 05:14
PROVIDERS: ADMIT Internal Medicine; ATTEND Internal Medicine
DX: J96.11 Chronic respiratory failure with hypoxia (principal); J44.0 Chronic obstructive pulmonary disease with (acute) lower respiratory infection; J18.9 Pneumonia, unspecified organism; J44.1 Chronic obstructive pulmonary disease with (acute) exacerbation; R26.81 Unsteadiness on feet; E87.1 Hypo-osmolality and hyponatremia; D72.829 Elevated white blood cell count, unspecified; R53.1 Weakness; R20.0 Anesthesia of skin; R82.81 Pyuria; S22.42XD Multiple fractures of ribs, left side, subsequent encounter for fracture with routine healing; V89.2XXD Person injured in unspecified motor-vehicle accident, traffic, subsequent encounter; E78.5 Hyperlipidemia, unspecified; I12.9 Hypertensive chronic kidney disease with stage 1 through stage 4 chronic kidney disease, or unspecified chronic kidney disease; N18.30 Chronic kidney disease, stage 3 unspecified; F32.A Depression, unspecified; R29.6 Repeated falls; N40.0 Benign prostatic hyperplasia without lower urinary tract symptoms; R82.71 Bacteriuria; I65.23 Occlusion and stenosis of bilateral carotid arteries; I25.2 Old myocardial infarction; Z86.73 Personal history of transient ischemic attack (TIA), and cerebral infarction without residual deficits; Z87.891 Personal history of nicotine dependence; Z99.81 Dependence on supplemental oxygen; Z79.02 Long term (current) use of antithrombotics/antiplatelets; Z79.899 Other long term (current) drug therapy; Z82.5 Family history of asthma and other chronic lower respiratory diseases
CPT/HCPCS: 96376; 96367; 96365; 96366; 96375; 99285; 36415; 94640 ×8; 94760 ×2; 93005; 97161; 84439; 82747; 80053 ×2; 80048 ×2; 87449; 84443; 82607; 83605; 83735; 85025 ×4; 85610; 85730; 81001; 87040; 87070; 87205; 84145; 87636; 71046 ×2; 71260; G0378 ×5; J0456; J0696 ×2; J7512 ×2; Q9967; J2919 ×2

== ENCOUNTER → 2024-10-09 | Outpatient (CLI) | payer OTHER ==
[2024-10-09 13:02] VITALS: BP 134/84; PULSE 87; RESP 18; TEMP 97.5
--- NOTE | 2024-10-09 13:27 | P.PAINCN ---
History of Present Illness - History of Present Illness 74-year-old pleasant gentleman chronic low back pain. Patient had 2 back surg eries with fusions followed by multiple pain procedures. The patient [facility]. Patient relates he is reasonably okay with the current set of treatments. His pain is located in low back going down bilateral lower extremity up to year his feet. Describes the pain as aching sore in character. Intensity goes up to 8/10. This pain has been going for many years. Any physical activity increases the pain. Only pain medication decreases his pain to a reasonable level. Denies any new bowel bladder dysfunction. Denies any new sensory or motor dysfunction. Although patient relates he occasionally gets weak in his knees bilaterally. Past Medical History Past Medical History: COPD, CVA/TIA, Hyperlipidemia, Hypertension, Myocardial Infarction (SD) Additional Past Medical History / Comment(s): stage 3 kidney failure, heart attack at 30, stroke x 3 Last Myocardial Infarction Date:: unknown History of Any Multi-Drug Resistant Organisms: None Reported Past Surgical History: Back Surgery, Orthopedic Surgery Additional Past Surgical History / Comment(s): back surgery, rods and spacers placed 05/09. left hand surgery, myelogram Past Anesthesia/Blood Transfusion Reactions: No Reported Reaction Past Psychological History: Depression, PTSD Smoking Status: Former smoker Past Alcohol Use History: None Reported Past Drug Use History: None Reported - Past Family History Mother Family Medical History: Cancer Family Family Medical History: COPD Additional Family Medical History / Comment(s): brother 2 yrs ago from lung cancer. Medications and Allergies Home Medications Medication Instructions Recorded Confirmed Type Clopidogrel Bisulfate [Plavix] 75 mg PO DAILY 08/16/21 09/21/24 History Cyclobenzaprine [Flexeril] 10 mg PO TID PRN 08/16/21 09/21/24 History Gabapentin [Neurontin] 300 mg PO TID 08/16/21 09/21/24 History Naproxen 375 mg PO BID PRN 08/16/21 09/21/24 History Omeprazole 40 mg PO DAILY 08/16/21 09/21/24 History Sodium Bicarbonate Tab 650 mg PO BID 08/16/21 09/21/24 History Tamsulosin [Flomax] 0.8 mg PO DAILY 08/16/21 09/21/24 History Albuterol Inhaler [Ventolin Hfa 2 puff INHALATION RT-QID PRN 05/02/23 01/02/25 History Inhaler] Atorvastatin [Lipitor] 40 mg PO HS 11/03/23 09/21/24 History Ferrous Sulfate [Iron (65 MG 325 mg PO BID 11/03/23 09/21/24 History Elemental)] Lidocaine 5% Patch [Lidoderm 5% 2 patch TOPICAL DAILY PRN 11/03/23 09/21/24 History Patch] Pyridoxine HCl (Vitamin B6) 50 mg PO DAILY 11/03/23 09/21/24 History [Pyridoxine HCl] Ciclesonide 160mcg 2 puff INHALATION RT-BID 09/21/24 09/21/24 History FLUoxetine HCL [PROzac] 40 mg PO DAILY 09/21/24 09/21/24 History Mag-Ox 420mg 420 mg PO BID 09/21/24 09/21/24 History Tiotropium Br/Olodaterol HCl 2 puff INHALATION RT-DAILY 09/21/24 09/21/24 History [Stiolto Respimat Inhaler (60)] guaiFENesin [guaiFENesin ER] 600 mg PO BID PRN 09/21/24 09/21/24 History oxyCODONE HCL/ACETAMINOPHEN 1 tab PO TID PRN 09/21/24 09/21/24 History [Percocet 10-325 mg] predniSONE [Deltasone] 40 mg PO DAILY 4 Days #8 tab 09/23/24 Rx Allergies Allergy/AdvReac Type Severity Reaction Status Date / Time No Known Allergies Allergy Verified 09/21/24 08:39 Physical Exam Vitals: Vital Signs Temp Pulse Resp BP Pulse Ox 10/09/24 12:58 97.5 F L 87 18 134/84 97 Intake and Output 10/08/24 10/09/24 10/09/24 22:59 06:59 14:59 Other: Weight 90.718 kg Physical Examinations : -Constitutiona : Cooperative , not in acute distress . -HEENT : nech : supple , no Lymphadenopathy , normal thyroid size . : eyes : no ptosis , no icterus, no photophobia . - neurologic : Cranial nerve II to XII intact , no focal neurological deffecit . -psychatric : alert , oriented X 3 , appropriate affect , intact judgment and insight . -Lymphatic : no Lymphadenopathy . - musculoskeltal : Lumber spine moter stegnth lower extremities ,thigh and legs 5/5 Right side , 5/5 Left side deep tendon reflexes : normal Knee Jerk , normal ankle Jerk lumber facet Loading Test =positive Right , positive Left Range of motion of the lumbar spine Flexion 30 degrees, extension 10 degrees strait leg raising test = negative bilaterally Fabere test= positive Right , and positive LT . Sever tenderness over the Sacroiliac joint on the Right , and Left sides Gaenslen test= positive right ,and positive left . Seated flexion test= positive right ,and positive Left . Distraction test= positive bilaterally Sacroiliac compression test= positive bilaterally Assessment and Plan Plan: Assessment and plan= chronic low back pain secondary to Post laminectomy syndrome. Lumbar radiculopathy. Bilateral sacroiliac joint arthropathy. chronic and current use of high-risk medication (opioids) I had a long discussion with the patient in regards to his diagnosis and treatment. Suggested caudal ROSALINDA and sacroiliac joint injection to begin with. At this point patient refuses any interventional pain procedures. He relates, he is reasonably okay with current pain medication regimen. He wants to continue current regimen. I told patient he can call the pain clinic and make an appointment if he changes his mind. Patient denies any side effects of the current pain medication and the current treatment/medication helping the patient to do activity of daily living , Diagnoses, prognosis, treatment options, including but not limited to physical therapy, medication management, interventional therapies, and surgery, were discussed with the patient All the questions answered T I have spent 35 minutes on patient care today. The time was used to review the medical records including relevant urine studies and Prescription history ( MAPs), review of the available imaging, evaluation and examination of the patient, coordination of care with the medical staff and if applicable referring physicians, as well as creation of the medical record. Maps were checked and appropriate, opioid start talking form is on file and updated, urine drug screens of been appropriate and have been reviewed. , PQRS Measure Charge Sheet Mode of Arrival: Ambulatory PQRS Narrative: Narcotic Agreement Date Signed 10/09/24 Blood Pressure 134/84 Pain Intensity [Left Shoulder] 8 Scale Used Numeric (1 - 10) Hx Alcohol Use (MH) No Home Medications: Ambulatory Orders Clopidogrel Bisulfate [Plavix] 75 mg PO DAILY 08/16/21 Cyclobenzaprine [Flexeril] 10 mg PO TID PRN 08/16/21 Gabapentin [Neurontin] 300 mg PO TID 08/16/21 Naproxen 375 mg PO BID PRN 08/16/21 Omeprazole 40 mg PO DAILY 08/16/21 Sodium Bicarbonate Tab 650 mg PO BID 08/16/21 Tamsulosin [Flomax] 0.8 mg PO DAILY 08/16/21 Albuterol Inhaler [Ventolin Hfa Inhaler] 2 puff INHALATION RT-QID PRN 01/19/23 Atorvastatin [Lipitor] 40 mg PO HS 11/03/23 Ferrous Sulfate [Iron (65 MG Elemental)] 325 mg PO BID 11/03/23 Lidocaine 5% Patch [Lidoderm 5% Patch] 2 patch TOPICAL DAILY PRN 11/03/23 Pyridoxine HCl (Vitamin B6) [Pyridoxine HCl] 50 mg PO DAILY 11/03/23 Ciclesonide 160mcg 2 puff INHALATION RT-BID 09/21/24 FLUoxetine HCL [PROzac] 40 mg PO DAILY 09/21/24 Mag-Ox 420mg 420 mg PO BID 09/21/24 Tiotropium Br/Olodaterol HCl [Stiolto Respimat Inhaler (60)] 2 puff INHALATION RT-DAILY 09/21/24 guaiFENesin [guaiFENesin ER] 600 mg PO BID PRN 09/21/24 oxyCODONE HCL/ACETAMINOPHEN [Percocet 10-325 mg] 1 tab PO TID PRN 09/21/24 predniSONE [Deltasone] 40 mg PO DAILY 4 Days #8 tab 09/23/24
== END ==
LOC: PNWHC3 11:47
PROVIDERS: ATTEND Pain Medicine Interventional Pain Medicine
DX: M96.1 Postlaminectomy syndrome, not elsewhere classified (principal); Z79.891 Long term (current) use of opiate analgesic
CPT/HCPCS: 99202

== ENCOUNTER 2024-12-10 13:32 | Inpatient (IN) | payer OTHER, MEDICARE ==
--- NOTE | 2024-12-10 14:10 | ED ---
Nausea/Vomiting/Diarrhea HPI - General Source: patient, family, RN notes reviewed Mode of arrival: wheelchair Limitations: no limitations <Bijal Leija - Last Filed: 12/10/24 14:09> <Heri Abel - Last Filed: 12/10/24 17:59> - General Chief complaint: Nausea/Vomiting/Diarrhea Stated complaint: Fall, vomiting, diarrhea Time Seen by Provider: 12/10/24 14:09 - History of Present Illness Initial comments: Quick [id number] male presenting for nausea/vomiting/diarrhea x 2 weeks. States he has become increasingly weak over the past couple of days and has had multiple falls due to weakness. Denies abdominal pain, fever, cough, nasal congestion. (Bijal Leija) This is a 74-year-old male who comes in complaining that he has had nausea vomiting and diarrhea for 2 weeks. Patient states he is only been able to occasionally snack because he cannot keep anything down. Patient states has not been on any antibiotics recently. Patient denies any abdominal pain. Patient states he has been getting much weaker and has fallen a couple times since he has been weaker. Patient states he has not hurt himself at all. Patient denies abdominal pain patient has chest pain difficulty breathing or shortness of breath. Patient denies any fever chills or cough or sore throat. Patient has a headache patient has numbness weakness (Heri Abel) - Related Data Home Medications Medication Instructions Recorded Confirmed Clopidogrel Bisulfate [Plavix] 75 mg PO DAILY 08/16/21 09/21/24 Cyclobenzaprine [Flexeril] 10 mg PO TID PRN 08/16/21 09/21/24 Gabapentin [Neurontin] 300 mg PO TID 08/16/21 09/21/24 Naproxen 375 mg PO BID PRN 08/16/21 09/21/24 Omeprazole 40 mg PO DAILY 08/16/21 09/21/24 Sodium Bicarbonate Tab 650 mg PO BID 08/16/21 09/21/24 Tamsulosin [Flomax] 0.8 mg PO DAILY 08/16/21 09/21/24 Albuterol Inhaler [Ventolin Hfa 2 puff INHALATION RT-QID PRN 01/19/23 09/21/24 Inhaler] Atorvastatin [Lipitor] 40 mg PO HS 11/03/23 09/21/24 Ferrous Sulfate [Iron (65 MG 325 mg PO BID 11/03/23 09/21/24 Elemental)] Lidocaine 5% Patch [Lidoderm 5% 2 patch TOPICAL DAILY PRN 11/03/23 09/21/24 Patch] Pyridoxine HCl (Vitamin B6) 50 mg PO DAILY 11/03/23 09/21/24 [Pyridoxine HCl] Ciclesonide 160mcg 2 puff INHALATION RT-BID 09/21/24 09/21/24 FLUoxetine HCL [PROzac] 40 mg PO DAILY 09/21/24 09/21/24 Mag-Ox 420mg 420 mg PO BID 09/21/24 09/21/24 Tiotropium Br/Olodaterol HCl 2 puff INHALATION RT-DAILY 09/21/24 09/21/24 [Stiolto Respimat Inhaler (60)] guaiFENesin [guaiFENesin ER] 600 mg PO BID PRN 09/21/24 09/21/24 oxyCODONE HCL/ACETAMINOPHEN 1 tab PO TID PRN 09/21/24 09/21/24 [Percocet 10-325 mg] Previous Rx's Medication Instructions Recorded predniSONE [Deltasone] 40 mg PO DAILY 4 Days #8 tab 09/23/24 Allergies Allergy/AdvReac Type Severity Reaction Status Date / Time No Known Allergies Allergy Verified 12/10/24 13:37 Review of Systems ROS Other: All systems not noted in ROS Statement are negative. <Bijal Leija - Last Filed: 12/10/24 14:09> ROS Other: All systems not noted in ROS Statement are negative. <Heri Abel - Last Filed: 12/10/24 17:59> ROS Statement: Those systems with pertinent positive or pertinent negative responses have been documented in the HPI. Past Medical History Past Medical History: COPD, CVA/TIA, Hyperlipidemia, Hypertension, Myocardial Infarction ([place]), Renal Disease Additional Past Medical History / Comment(s): stage 3 kidney failure, heart attack at 30, stroke x 3 Last Myocardial Infarction Date:: unknown History of Any Multi-Drug Resistant Organisms: None Reported Past Surgical History: Back Surgery, Orthopedic Surgery Additional Past Surgical History / Comment(s): back surgery, rods and spacers placed 05/09. left hand surgery, myelogram Past Anesthesia/Blood Transfusion Reactions: No Reported Reaction Past Psychological History: Depression, PTSD Smoking Status: Former smoker Past Alcohol Use History: None Reported Past Drug Use History: None Reported - Past Family History Mother Family Medical History: Cancer Family Family Medical History: COPD Additional Family Medical History / Comment(s): brother 2 yrs ago from lung cancer. <Bijal Leija - Last Filed: 12/10/24 14:09> General Exam Limitations: no limitations <Bijal Leija - Last Filed: 12/10/24 14:09> <Heri Abel - Last Filed: 12/10/24 17:59> - General Exam Comments Initial Comments: Visual Physical Exam Vital signs reviewed General: Well-appearing, nontoxic, no acute distress. Head: Normocephalic, atraumatic Eyes: PERRLA, EOMI ENT: Airway patent Chest: Nonlabored breathing Skin: No visual rash, normal skin tone Neuro: Alert and oriented 3 Musculoskeletal: No gross abnormalities (Bijal Leija) GENERAL: Patient is well-developed and well-nourished. Patient is nontoxic and well- hydrated and is in mild distress. ENT: Neck is soft and supple. No significant lymphadenopathy is noted. Oropharynx is clear. Moist mucous membranes. Neck has full range of motion without eliciting any pain. EYES: The sclera were anicteric and conjunctiva were pink and moist. Extraocular movements were intact and pupils were equal round and reactive to light. Eyelids were unremarkable. PULMONARY: Unlabored respirations. Good breath sounds bilaterally. No audible rales r honchi or wheezing was noted. CARDIOVASCULAR: There is a regular rate and rhythm without any murmurs gallops or rubs. ABDOMEN: Soft and nontender with normal bowel sounds. SKIN: Skin is clear with no lesions or rashes and otherwise unremarkable. NEUROLOGIC: Patient is alert and oriented x3. Cranial nerves II through XII are grossly intact. Motor and sensory are also intact. Normal speech, volume and content. Symmetrical smile. MUSCULOSKELETAL: Normal extremities with adequate strength and full range of motion. No lower extremity swelling or edema. No calf tenderness. LYMPHATICS: No significant lymphadenopathy is noted PSYCHIATRIC: Normal psychiatric evaluation. (Heri Abel) Course Vital Signs 12/10/24 13:34 Temperature 97.8 F Pulse Rate 94 Respiratory 18 Rate Blood Pressure 96/57 O2 Sat by Pulse 99 Oximetry Medical Decision Making <Bijal Leija - Last Filed: 12/10/24 14:09> - Lab Data Result diagrams: 12/10/24 14:29 12/10/24 14:29 <Heri Abel - Last Filed: 12/10/24 17:59> - Medical Decision Making I completed the quick note portion of this chart signed Bijal Leija PA-C (Bijal Leija) EKG is interpreted by myself and EKG shows sinus rhythm at 92 bpm KS interval is 120 QRS is 92 QT interval 353 QTc is 403. Patient's EKG shows no ST segment elevation or depression Was pt. sent in by a medical professional or institution (, [employer], MORTUARY OPERATIONS MANAGER, urgent care, hospital, or shelter...) When possible be specific @ -No Did you speak to anyone other than the patient for history (EMS, parent, family, police, friend...)? What history was obtained from this source @ -No Did you review nursing and triage notes (agree or disagree)? Why? @ -I reviewed and agree with nursing and triage notes Were old charts reviewed (outside hosp., previous admission, EMS record, old EKG, old radiological studies, urgent care reports/EKG's, shelter records)? Report findings @ -No old charts were reviewed Differential Diagnosis? @ -Differential Syncope: Valvular disease, hypertrophic cardiomyopathy, pulmonary embolism, tamponade, tachycardia, bradycardia, [place], hypovolemia, hemorrhage, dissection, anemia, intracranial hemorrhage, seizure, hypoglycemia, carbon monoxide poisoning, this is not meant to be an all-inclusive list. EKG interpreted by me (3pts min.). @ -As above X-rays interpreted by me (1pt min.). @ -None done CT interpreted by me (1pt min.). @ -None done. U/S interpreted by me (1pt. min.). @ -None done What testing was considered but not performed or refused? (CT, X-rays, U/S, labs)? Why? @ -None What meds were considered but not given or refused? Why? @ -None Did you discuss the management of the patient with other professionals (professionals i.e. , [employer], MORTUARY OPERATIONS MANAGER, lab, RT, psych nurse, social media strategist, title lawyer, teacher, police patrol officer, caseworker intake)? Give summary @ -I spoke with Dr. Muir he agreed to admit the patient admit the patient I wrote admitting orders Was smoking cessation discussed for >3mins.? @ -No Was critical care preformed (if so, how long)? @ -No Were there social determinants of health that impacted care today? How? (Homelessness, low income, unemployed, alcoholism, drug addiction, transportation, low edu. Level, literacy, decrease access to med. care, penitentiary, rehab)? @ -No Was there de-escalation of care discussed even if they declined (Discuss DNR or withdrawal of care, Hospice)? DNR status @ -No What co-morbidities impacted this encounter? (DM, HTN, Smoking, COPD, CAD, Cancer, CVA, ARF, Chemo, Hep., AIDS, mental health diagnosis, sleep apnea, morbid obesity)? @ -None Was patient admitted / discharged? Hospital course, mention meds given and route, prescriptions, significant lab abnormalities, going to OR and other pertinent info. @ -Patient had no more vomiting while in the emergency department had no more diarrhea and when in the emergency department. Patient was given Zofran and Lomotil in the emergency department. Patient was also given 1.5 L of normal saline. Patient's sodium came back at 124 so patient will be admitted for hyponatremia and gastroenteritis. Undiagnosed new problem with uncertain prognosis? @ -No Drug Therapy requiring intensive monitoring for toxicity (Heparin, Nitro, Insulin, Cardizem)? @ -No Were any procedures done? @ -No Diagnosis/symptom? @ -Hyponatremia Acute, or Chronic, or Acute on Chronic? @ -Acute Uncomplicated (without systemic symptoms) or Complicated (systemic symptoms)? @ -Comp Side effects of treatment? @ -No Exacerbation, Progression, or Severe Exacerbation? @ -No Poses a threat to life or bodily function? How? (Chest pain, [place], [place], pneumonia, PE, COPD, DKA, ARF, appy, cholecystitis, CVA, Diverticulitis, Homicidal, Suicidal, threat to staff... and all critical care pts) @ -Yes this can lead to severe weakness falls and injury Diagnosis/symptom? @ -Gastroenteritis Acute, or Chronic, or Acute on Chronic? @ -Acute Uncomplicated (without systemic symptoms) or Complicated (systemic symptoms)? @ -Complicated Side effects of treatment? @ -None Exacerbation, Progression, or Severe Exacerbation] @ -No Poses a threat to life or bodily function? @ -No (Heri Abel) - Lab Data Lab Results 12/10/24 12/10/24 12/10/24 Range/Units 14:29 14:29 14:29 WBC 16.6 H (3.8-10.6) k/uL RBC 4.57 (4.30-5.90) m/uL Hgb 12.9 L (13.0-17.5) gm/dL Hct 38.3 L (39.0-53.0) % MCV 83.7 (80.0-100.0) fL MCH 28.2 (25.0-35.0) pg MCHC 33.7 (31.0-37.0) g/dL RDW 14.1 (11.5-15.5) % Plt Count 406 (150-450) k/uL MPV 6.8 Neutrophils % 88 % Lymphocytes % 7 % Monocytes % 3 % Eosinophils % 1 % Basophils % 0 % Neutrophils # 14.7 H (1.3-7.7) k/uL Lymphocytes # 1.2 (1.0-4.8) k/uL Monocytes # 0.5 (0-1.0) k/uL Eosinophils # 0.1 (0-0.7) k/uL Basophils # 0.0 (0-0.2) k/uL Sodium 124 L (137-145) mmol/L Potassium 4.0 (3.5-5.1) mmol/L Chloride 91 L (98-107) mmol/L Carbon Dioxide 22 (22-30) mmol/L Anion Gap 11 mmol/L BUN 19 (9-20) mg/dL Creatinine 1.09 (0.66-1.25) mg/dL Est GFR (CKD-EPI)AfAm 78 (>60 ml/min/1.73 sqM) Est GFR (CKD-EPI)NonAf 67 (>60 ml/min/1.73 sqM) Glucose 104 H (74-99) mg/dL Plasma Lactic Acid Marvin 1.3 (0.7-2.0) mmol/L Calcium 8.5 (8.4-10.2) mg/dL Total Bilirubin 0.8 (0.2-1.3) mg/dL AST 27 (17-59) U/L ALT 20 (4-49) U/L Alkaline Phosphatase 155 H (38-126) U/L Troponin I (0.000-0.034) ng/mL Total Protein 6.8 (6.3-8.2) g/dL Albumin 3.6 (3.5-5.0) g/dL Lipase 29 (23-300) U/L Influenza Type A (PCR) (Not Detectd) Influenza Type B (PCR) (Not Detectd) RSV (PCR) (Not Detectd) SARS-CoV-2 (PCR) (Not Detectd) 12/10/24 12/10/24 Range/Units 14:29 14:29 WBC (3.8-10.6) k/uL RBC (4.30-5.90) m/uL Hgb (13.0-17.5) gm/dL Hct (39.0-53.0) % MCV (80.0-100.0) fL MCH (25.0-35.0) pg MCHC (31.0-37.0) g/dL RDW (11.5-15.5) % Plt Count (150-450) k/uL MPV Neutrophils % % Lymphocytes % % Monocytes % % Eosinophils % % Basophils % % Neutrophils # (1.3-7.7) k/uL Lymphocytes # (1.0-4.8) k/uL Monocytes # (0-1.0) k/uL Eosinophils # (0-0.7) k/uL Basophils # (0-0.2) k/uL Sodium (137-145) mmol/L Potassium (3.5-5.1) mmol/L Chloride (98-107) mmol/L Carbon Dioxide (22-30) mmol/L Anion Gap mmol/L BUN (9-20) mg/dL Creatinine (0.66-1.25) mg/dL Est GFR (CKD-EPI)AfAm (>60 ml/min/1.73 sqM) Est GFR (CKD-EPI)NonAf (>60 ml/min/1.73 sqM) Glucose (74-99) mg/dL Plasma Lactic Acid Marvin (0.7-2.0) mmol/L Calcium (8.4-10.2) mg/dL Total Bilirubin (0.2-1.3) mg/dL AST (17-59) U/L ALT (4-49) U/L Alkaline Phosphatase (38-126) U/L Troponin I <0.012 (0.000-0.034) ng/mL Total Protein (6.3-8.2) g/dL Albumin (3.5-5.0) g/dL Lipase (23-300) U/L Influenza Type A (PCR) Not Detected (Not Detectd) Influenza Type B (PCR) Not Detected (Not Detectd) RSV (PCR) Not Detected (Not Detectd) SARS-CoV-2 (PCR) Not Detected (Not Detectd) Disposition <Bijal Leija - Last Filed: 12/10/24 14:09> Time of Disposition: 17:59 <Heri Abel - Last Filed: 12/10/24 17:59> Clinical Impression: Gastroenteritis, Hyponatremia Disposition: ADMITTED IP TO THIS HOSP Referrals: SUHAS CHAVARRIA, [facility] [Family Provider] - 1-2 days
[2024-12-10 14:48] LABS: Basophils % (A) 0 %; Eosinophils # (A) 0.1 k/uL (0-0.7); Eosinophils % (A) 1 %; HCT 38.3 % (39.0-53.0); HGB 12.9 gm/dL (13.0-17.5); Lymphocytes # (A) 1.2 k/uL (1.0-4.8); Lymphocytes % (A) 7 %; MCH 28.2 pg (25.0-35.0); MCHC 33.7 g/dL (31.0-37.0); MCV 83.7 fL (80.0-100.0); Mean Platelet Volume 6.8; Monocytes # (A) 0.5 k/uL (0-1.0); Monocytes % (A) 3 %; Neutrophils # (A) 14.7 k/uL (1.3-7.7); Neutrophils % (A) 88 %; Platelet Count 406 k/uL (150-450); RBC 4.57 m/uL (4.30-5.90); RDW 14.1 % (11.5-15.5); WBC 16.6 k/uL (3.8-10.6)
[2024-12-10 14:52] LABS: ALT 20 U/L (4-49); AST 27 U/L (17-59); African American GFR (CKD) 78 (>60 ml/min/1.73 sqM); Albumin 3.6 g/dL (3.5-5.0); Alkaline Phosphatase 155 U/L (38-126); Anion Gap 11 mmol/L; Blood Urea Nitrogen 19 mg/dL (9-20); Calcium 8.5 mg/dL (8.4-10.2); Carbon Dioxide 22 mmol/L (22-30); Chloride 91 mmol/L (98-107); Glucose 104 mg/dL (74-99); Lipase 29 U/L (23-300); Non-African American GFR(CKD) 67 (>60 ml/min/1.73 sqM); Sodium 124 mmol/L (137-145); Total Bilirubin 0.8 mg/dL (0.2-1.3); Total Protein 6.8 g/dL (6.3-8.2)
[2024-12-10 15:14] LABS: Influenza A Not Detected (Not Detectd); Influenza B Not Detected (Not Detectd); RSV Not Detected (Not Detectd)
[2024-12-10] MEDS: SODIUM CHLORIDE 0.9% 500 ML 500 ML IV ONE (15:51)
[2024-12-10] MEDS: SODIUM CHLORIDE 0.9% 1,000 ML IV ONE ×2 (15:52→18:31)
[2024-12-10] MEDS: DIPHENOX-ATROP 2.5-0.025 MG 1 EACH TAB PO STA (15:52)
[2024-12-10] MEDS: ONDANSETRON 4 MG/2 ML VIAL IVP STA (15:52)
[2024-12-10] MEDS ORDERED: ONDANSETRON 4 MG/2 ML VIAL IVP PRN (18:01)
[2024-12-10 18:23] LABS: Appearance,Urine Clear (Clear); Bilirubin,Urine Negative (Negative); Blood,Urine Negative (Negative); Color,Urine Light Yellow; Glucose,Urine (UA) Negative (Negative); Ketones,Urine Negative (Negative); Leukocyte Esterase,Urine Negative (Negative); Nitrite,Urine Negative (Negative); Protein,Urine Negative (Negative); Specific Gravity,Urine 1.012 (1.001-1.035); Urobilinogen,Urine <2.0 mg/dL (<2.0)
[2024-12-11 02:41] LABS: ALT 15 U/L (4-49); AST 22 U/L (17-59); African American GFR (CKD) >90 (>60 ml/min/1.73 sqM); Albumin 2.5 g/dL (3.5-5.0); Alkaline Phosphatase 117 U/L (38-126); Anion Gap 9 mmol/L; Blood Urea Nitrogen 13 mg/dL (9-20); Calcium 6.8 mg/dL (8.4-10.2); Carbon Dioxide 20 mmol/L (22-30); Chloride 102 mmol/L (98-107); Globulin 2.6 g/dL; Glucose 77 mg/dL (74-99); Non-African American GFR(CKD) 90 (>60 ml/min/1.73 sqM); Potassium 2.9 mmol/L (3.5-5.1); Sodium 131 mmol/L (137-145); Total Bilirubin 0.5 mg/dL (0.2-1.3); Total Protein 5.1 g/dL (6.3-8.2)
--- NOTE | 2024-12-11 04:53 | P.HPIM ---
History of Present Illness H&P Date: 12/10/24 Patient is a 74-year-old male with a PMH of hypertension, hyperlipidemia, CAD, and COPD who presents to the emergency room with complaints of generalized weakness with nausea, vomiting, diarrhea, and frequent falls. Patient reports that her symptoms started roughly 2 weeks ago where he feels as though he is becoming progressively more ill. Reports multiple episodes of nausea with nonbloody emesis today as well as over the past few days. Does report a few episodes of loose bowel movements as well. Denies experiencing fever, chills, cough, chest pain, shortness of breath. In the emergency room EKG revealed sinus rhythm at [address]/T wave changes noted as reviewed by me. Laboratory evaluation did reveal sodium of 124, chloride 91, glucose 103, alk phos 155, UA unremarkable with respiratory viral panel negative with WBC count 16.6 and hemoglobin 12.9. ED documentation reviewed and case discussed with ED provider. Review of systems: Pertinent positives and negatives as discussed in HPI, a complete review of systems was performed and all other systems are negative. Physical examination: Vital signs reviewed General: non toxic, no distress, appears at stated age, normal weight Derm: no unusual rashes/lesions, warm Head: atraumatic, normocephalic, symmetric Eyes: EOMI, no lid lag, anicteric sclera, pupils equal round reactive to light ENT: Nose and ears atraumatic Neck: No cervical lymphadenopathy, trachea midline, supple Mouth: no lip lesion, mucus membranes moist Cardiovascular: S1S2 reg, no murmur, positive dorsalis pedis pulse bilateral, no edema Lungs: CTA bilateral, no rhonchi, no rales, no accessory muscle use Abdominal: soft, nontender to palpation, no guarding Ext: muscle strength 5 out of 5 in all 4 extremities grossly, no gross muscle atrophy, no contractures, Neuro: CN II-XI grossly intact, no gross focal neuro deficits Psych: Alert, oriented, appropriate affect Assessment: Hypochloremic hyponatremia Leukocytosis Conditions: Hypertension, hyperlipidemia, CAD, COPD Imaging: In the emergency room EKG revealed sinus rhythm at [address]/T wave changes noted as reviewed by me. Data Review: Laboratory evaluation did reveal sodium of 124, chloride 91, glucose 103, alk phos 155, UA unremarkable with respiratory viral panel negative with WBC count 16.6 and hemoglobin 12.9. Plan: Continue to monitor BMP with goal sodium correction 8-12 in 24 hours Leukocytosis likely secondary to dehydration Continue antiemetics with Zofran Hold home cyclobenzaprine at this time DVT prophylaxis: Lovenox Subq The patient is admitted with an anticipated greater than 2 midnight stay for evaluation of hyponatremia CODE STATUS: Full Code Discussed with: Patient Anticipated discharge place: Home Past Medical History Past Medical History: COPD, CVA/TIA, Hyperlipidemia, Hypertension, Myocardial Infarction (MA), Renal Disease Additional Past Medical History / Comment(s): stage 3 kidney failure, heart attack at 30, stroke x 3 Last Myocardial Infarction Date:: unknown History of Any Multi-Drug Resistant Organisms: None Reported Past Surgical History: Back Surgery, Orthopedic Surgery Additional Past Surgical History / Comment(s): back surgery, rods and spacers placed 05/09. left hand surgery, myelogram Past Anesthesia/Blood Transfusion Reactions: No Reported Reaction Past Psychological History: Depression, PTSD Smoking Status: Former smoker Past Alcohol Use History: None Reported Past Drug Use History: None Reported - Past Family History Mother Family Medical History: Cancer Family Family Medical History: COPD Additional Family Medical History / Comment(s): brother 2 yrs ago from lung cancer. Medications and Allergies Home Medications Medication Instructions Recorded Confirmed Type Clopidogrel Bisulfate [Plavix] 75 mg PO DAILY 08/16/21 12/10/24 History Cyclobenzaprine [Flexeril] 10 mg PO TID 08/16/21 12/10/24 History Gabapentin [Neurontin] 300 mg PO TID 08/16/21 12/10/24 History Naproxen 375 mg PO BID PRN 08/16/21 12/10/24 History Omeprazole 40 mg PO DAILY 08/16/21 12/10/24 History Sodium Bicarbonate Tab 650 mg PO BID 08/16/21 12/10/24 History Tamsulosin [Flomax] 0.8 mg PO DAILY 08/16/21 12/10/24 History Albuterol Inhaler [Ventolin Hfa 2 puff INHALATION RT-QID PRN 01/19/23 12/10/24 History Inhaler] Atorvastatin [Lipitor] 40 mg PO HS 11/03/23 12/10/24 History Ferrous Sulfate [Iron (65 MG 325 mg PO BID 11/03/23 12/10/24 History Elemental)] Lidocaine 5% Patch [Lidoderm 5% 2 patch TOPICAL DAILY PRN 11/03/23 12/10/24 His tory Patch] Pyridoxine HCl (Vitamin B6) 50 mg PO DAILY 11/03/23 12/10/24 History [Pyridoxine HCl] Ciclesonide 160mcg 2 puff INHALATION RT-BID 09/21/24 12/10/24 History FLUoxetine HCL [PROzac] 40 mg PO DAILY 09/21/24 12/10/24 History Mag-Ox 420mg 420 mg PO BID 09/21/24 12/10/24 History Tiotropium Br/Olodaterol HCl 2 puff INHALATION RT-DAILY 09/21/24 12/10/24 History [Stiolto Respimat Inhaler (60)] guaiFENesin [guaiFENesin ER] 600 mg PO BID PRN 09/21/24 12/10/24 History oxyCODONE HCL/ACETAMINOPHEN 1 tab PO TID 09/21/24 12/10/24 History [Percocet 10-325 mg] Allergies Allergy/AdvReac Type Severity Reaction Status Date / Time No Known Allergies Allergy Verified 12/10/24 17:57 Physical Exam Vitals: Vital Signs Temp Pulse Resp BP Pulse Ox 12/11/24 01:00 97.9 F 73 16 94/64 98 12/10/24 19:07 65 16 98/67 99 12/10/24 13:34 97.8 F 94 18 96/57 99 Intake and Output 12/10/24 12/10/24 12/11/24 14:59 22:59 06:59 Other: Weight 86.183 kg Results CBC & Chem 7: 12/10/24 14:29 12/11/24 05:30 Labs: Abnormal Lab Results - Last 24 Hours (Table) 12/10/24 12/10/24 12/11/24 Range/Units 14:29 14:29 01:48 WBC 16.6 H (3.8-10.6) k/uL Hgb 12.9 L (13.0-17.5) gm/dL Hct 38.3 L (39.0-53.0) % Neutrophils # 14.7 H (1.3-7.7) k/uL Sodium 124 L 131 L (137-145) mmol/L Potassium 2.9 L (3.5-5.1) mmol/L Chloride 91 L (98-107) mmol/L Carbon Dioxide 20 L (22-30) mmol/L Glucose 104 H (74-99) mg/dL Calcium 6.8 L (8.4-10.2) mg/dL Alkaline Phosphatase 155 H (38-126) U/L Total Protein 5.1 L (6.3-8.2) g/dL Albumin 2.5 L (3.5-5.0) g/dL
[2024-12-11 06:11] LABS: African American GFR (CKD) 90 (>60 ml/min/1.73 sqM); Anion Gap 7 mmol/L; Blood Urea Nitrogen 15 mg/dL (9-20); Calcium 8.3 mg/dL (8.4-10.2); Carbon Dioxide 25 mmol/L (22-30); Chloride 98 mmol/L (98-107); Glucose 97 mg/dL (74-99); Non-African American GFR(CKD) 78 (>60 ml/min/1.73 sqM); Potassium 4.2 mmol/L (3.5-5.1); Sodium 130 mmol/L (137-145)
[2024-12-11] MEDS: POTASSIUM CHLORIDE ER 20 MEQ TAB.ER PO SCH (07:54)
[2024-12-11] MEDS: CLOPIDOGREL 75 MG TAB PO SCH (07:55)
[2024-12-11] MEDS: ENOXAPARIN 40 MG/0.4 ML SYRINGE SQ SCH (07:55)
[2024-12-11] MEDS: FLUoxetine HCL 20 MG CAP PO SCH (07:56)
[2024-12-11] MEDS: SODIUM BICARBONATE TAB 650 MG TAB PO SCH (07:56)
[2024-12-11] MEDS: GABAPENTIN 300 MG CAP PO SCH (08:04)
[2024-12-11] MEDS: TAMSULOSIN 0.4 MG CAP.ER.24H PO SCH (08:04)
[2024-12-11] MEDS: FORMOTEROL FUMARATE 20 MCG/2 ML NEBU INHALATION SCH (08:08)
[2024-12-11] MEDS: TIOTROPIUM 2.5 MCG INHALER INHALATION SCH (08:09)
[2024-12-11 09:34] LABS: Basophils % (A) 0 %; Eosinophils # (A) 0.4 k/uL (0-0.7); Eosinophils % (A) 3 %; HCT 35.8 % (39.0-53.0); HGB 11.5 gm/dL (13.0-17.5); Lymphocytes # (A) 1.1 k/uL (1.0-4.8); Lymphocytes % (A) 9 %; MCH 28.1 pg (25.0-35.0); MCV 87.8 fL (80.0-100.0); Mean Platelet Volume 7.7; Monocytes # (A) 0.5 k/uL (0-1.0); Monocytes % (A) 4 %; Neutrophils # (A) 9.6 k/uL (1.3-7.7); Neutrophils % (A) 82 %; Platelet Count 377 k/uL (150-450); RBC 4.08 m/uL (4.30-5.90); RDW 14.5 % (11.5-15.5); WBC 11.8 k/uL (3.8-10.6)
[2024-12-11] MEDS: oxyCODONE-APAP 10-325MG 1 EACH TAB PO SCH ×2 (11:29→17:49)
[2024-12-11] MEDS ORDERED: oxyCODONE-APAP 10-325MG 1 EACH TAB PO SCH (11:30)
[2024-12-11 13:14] LABS: African American GFR (CKD) >90 (>60 ml/min/1.73 sqM); Anion Gap 8 mmol/L; Blood Urea Nitrogen 13 mg/dL (9-20); Calcium 8.1 mg/dL (8.4-10.2); Carbon Dioxide 24 mmol/L (22-30); Chloride 96 mmol/L (98-107); Glucose 116 mg/dL (74-99); Non-African American GFR(CKD) 86 (>60 ml/min/1.73 sqM); Potassium 4.4 mmol/L (3.5-5.1); Sodium 128 mmol/L (137-145)
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
[2024-12-11] MEDS: SODIUM CHLORIDE 0.9% 1,000 ML IV SCH (15:43)
[2024-12-11] MEDS: ATORVASTATIN 40 MG TAB PO SCH (21:22)
[2024-12-12 08:17] LABS: Basophils # (A) 0.05 X 10*3/uL (0.00-0.10); Basophils % (A) 0.4 %; Eosinophils # (A) 0.36 X 10*3/uL (0.04-0.35); HCT 31.8 % (39.6-50.0); Lymphocytes # (A) 1.52 X 10*3/uL (0.90-5.00); Lymphocytes % (A) 12.5 %; MCH 29.6 pg (27.0-32.0); MCHC 34.6 g/dL (32.0-37.0); MCV 85.5 FL (80.0-97.0); Mean Platelet Volume 8.7 FL (9.5-12.2); Monocytes # (A) 0.73 X 10*3/uL (0.20-1.00); NRBC Per 100 WBC 0 X 10*3/uL (0.00-0.01); Neutrophils # (A) 9.44 X 10*3/uL (1.80-7.70); Neutrophils % (A) 77.3 %; Platelet Count 340 X 10*3/uL (140-440); RBC 3.72 X 10*6/uL (4.40-5.60); RDW 14.2 % (11.5-14.5)
[2024-12-12 08:44] LABS: BUN/Creat Ratio 10.78 Ratio (12.00-20.00); Blood Urea Nitrogen 9.7 mg/dL (9.0-27.0); Carbon Dioxide 21.9 mmol/L (21.6-31.8); Chloride 100 mmol/L (96-109); Glucose 98 mg/dL (70-110); Potassium 4.1 mmol/L (3.5-5.5); Sodium 131 mmol/L (135-145)
[2024-12-12] MEDS: DIPHENOX-ATROP 2.5-0.025 MG 1 EACH TAB PO PRN (10:47)
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
[2024-12-12] MEDS ORDERED: LOPERAMIDE 2 MG CAP PO PRN (15:55)
[2024-12-12] MEDS: LOPERAMIDE 2 MG CAP PO STA (19:06)
[2024-12-12 21:36] VITALS: RESP 18
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
[2024-12-13 10:53] VITALS: BP 125/64; PULSE 86; TEMP 97.9
== END 2024-12-13 11:40 | disposition home or self-care (01) | DRG 641 ==
LOC: EC 13:32 → 4SSUR 18:01
PROVIDERS: ADMIT Internal Medicine; ATTEND Internal Medicine
DX: E87.1 Hypo-osmolality and hyponatremia (principal); J96.11 Chronic respiratory failure with hypoxia; J44.9 Chronic obstructive pulmonary disease, unspecified; I10 Essential (primary) hypertension; F32.A Depression, unspecified; R11.2 Nausea with vomiting, unspecified; R19.7 Diarrhea, unspecified; R29.6 Repeated falls; N40.0 Benign prostatic hyperplasia without lower urinary tract symptoms; I25.10 Atherosclerotic heart disease of native coronary artery without angina pectoris; E78.5 Hyperlipidemia, unspecified; E87.8 Other disorders of electrolyte and fluid balance, not elsewhere classified; D72.829 Elevated white blood cell count, unspecified; E86.0 Dehydration; Z99.81 Dependence on supplemental oxygen; F41.9 Anxiety disorder, unspecified; F43.10 Post-traumatic stress disorder, unspecified; Z91.81 History of falling; Z87.891 Personal history of nicotine dependence; Z86.73 Personal history of transient ischemic attack (TIA), and cerebral infarction without residual deficits; Z79.899 Other long term (current) drug therapy; Z79.891 Long term (current) use of opiate analgesic; Z79.02 Long term (current) use of antithrombotics/antiplatelets; I25.2 Old myocardial infarction; Z87.81 Personal history of (healed) traumatic fracture
CPT/HCPCS: 36415; 80048; 80053; 81003; 83605; 83690; 84443; 84484; 85025; 87324; 87636; 93005; 94640; 94760; 96361; 96374; 99285

== ENCOUNTER 2025-01-13 13:17 | Inpatient (IN) | payer OTHER, MEDICARE ==
[2025-01-13 13:46] LABS: Basophils # (A) 0.05 10*3/uL (0.00-0.10); Basophils % (A) 0.2 %; Eosinophils # (A) 0.03 10*3/uL (0.04-0.35); Eosinophils % (A) 0.1 %; HCT 37.8 % (39.6-50.0); HGB 12.8 g/dL (13.0-17.0); Lymphocytes # (A) 0.94 10*3/uL (0.90-5.00); Lymphocytes % (A) 3.9 %; MCH 29.3 pg (27.0-32.0); MCHC 33.9 g/dL (32.0-37.0); MCV 86.5 fL (80.0-97.0); Mean Platelet Volume 8.3 fL (9.5-12.2); Monocytes # (A) 0.71 10*3/uL (0.20-1.00); Monocytes % (A) 2.9 %; Neutrophils # (A) 22.41 10*3/uL (1.80-7.70); Platelet Count 407 10*3/uL (140-440); RBC 4.37 10*6/uL (4.40-5.60); RDW 14.6 % (11.5-14.5); WBC 24.35 10*3/uL (4.50-10.00)
[2025-01-13 14:02] LABS: INR 1.1 (<1.2); Partial Thromboplastin Time 26.5 sec (22.0-30.0); Prothrombin Time 12.1 sec (10.0-12.5)
--- NOTE | 2025-01-13 14:02 | ED ---
Weakness HPI - General Chief complaint: Fall Stated complaint: AMS Time Seen by Provider: 01/13/25 13:24 Source: patient, family, RN notes reviewed Mode of arrival: wheelchair Limitations: altered mental status - History of Present Illness Initial comments: This is a 74-year-old male who presents to the emergency department for weakness and frequent falls. Family states that it started 3 days ago. Patient states that anytime he gets up he feels very dizzy and just falls to the ground. States that he also feels weak and has no energy. He is on blood thinners, however they are unsure if he hit his head or not. He is on 2 L of oxygen at baseline for COPD. However, he has had to turn it up to 3 L due to increasing shortness of breath. Family states that he has also been increasingly confused and saying things that do not make any sense. MD Complaint: generalized weakness - Related Data Home Medications Medication Instructions Recorded Confirmed Clopidogrel Bisulfate [Plavix] 75 mg PO DAILY 08/16/21 01/13/25 Cyclobenzaprine [Flexeril] 10 mg PO TID 08/16/21 01/13/25 Gabapentin [Neurontin] 300 mg PO TID 08/16/21 01/13/25 Naproxen 375 mg PO BID PRN 08/16/21 01/13/25 Omeprazole 40 mg PO DAILY 08/16/21 01/13/25 Sodium Bicarbonate Tab 650 mg PO BID 08/16/21 01/13/25 Tamsulosin [Flomax] 0.8 mg PO DAILY 08/16/21 01/13/25 Albuterol Inhaler [Ventolin Hfa 2 puff INHALATION RT-QID PRN 01/19/23 01/13/25 Inhaler] Atorvastatin [Lipitor] 40 mg PO HS 11/03/23 01/13/25 Ferrous Sulfate [Iron (65 MG 325 mg PO BID 11/03/23 01/13/25 Elemental)] Lidocaine 5% Patch [Lidoderm 5% 2 patch TOPICAL DAILY PRN 11/03/23 01/13/25 Patch] Pyridoxine HCl (Vitamin B6) 50 mg PO DAILY 11/03/23 01/13/25 [Pyridoxine HCl] Ciclesonide 160mcg 2 puff INHALATION RT-BID 09/21/24 01/13/25 FLUoxetine HCL [PROzac] 40 mg PO DAILY 09/21/24 01/13/25 Tiotropium Br/Olodaterol HCl 2 puff INHALATION RT-DAILY 09/21/24 01/13/25 [Stiolto Respimat Inhaler (60)] guaiFENesin [guaiFENesin ER] 600 mg PO BID PRN 09/21/24 01/13/25 oxyCODONE HCL/ACETAMINOPHEN 1 tab PO TID 09/21/24 01/13/25 [Percocet 10-325 mg] Allergies Allergy/AdvReac Type Severity Reaction Status Date / Time No Known Allergies Allergy Verified 01/13/25 15:53 Review of Systems ROS Statement: Those systems with pertinent positive or pertinent negative responses have been documented in the HPI. ROS Other: All systems not noted in ROS Statement are negative. Past Medical History Past Medical History: COPD, CVA/TIA, Hyperlipidemia, Hypertension, Myocardial Infarction ([place]), Pulmonary Embolus (PE), Renal Disease Additional Past Medical History / Comment(s): stage 3 kidney failure, heart attack at 30, stroke x 3 Last Myocardial Infarction Date:: unknown History of Any Multi-Drug Resistant Organisms: None Reported Past Surgical History: Back Surgery, Orthopedic Surgery Additional Past Surgical History / Comment(s): back surgery x2, rods and spacers placed 05/09. left hand surgery, myelogram Past Anesthesia/Blood Transfusion Reactions: No Reported Reaction Past Psychological History: Depression, PTSD Smoking Status: Former smoker Past Alcohol Use History: None Reported Past Drug Use History: None Reported - Past Family History Mother Family Medical History: Cancer Family Family Medical History: COPD Additional Family Medical History / Comment(s): brother 2 yrs ago from lung cancer. General Exam Limitations: altered mental status General appearance: alert, in no apparent distress Head exam: Present: atraumatic, normocephalic, normal inspection Respiratory exam: Present: decreased breath sounds, prolonged expiratory Cardiovascular Exam: Present: normal rhythm, tachycardia GI/Abdominal exam: Present: soft. Absent: distended, tenderness Neurological exam: Present: alert, oriented X3, CN II-XII intact Skin exam: Present: warm, dry, intact, normal color. Absent: rash Course Vital Signs 01/13/25 01/13/25 01/13/25 13:18 13:21 14:43 Temperature 97.9 F Pulse Rate 127 H 110 H 110 H Respiratory 18 20 18 Rate Blood Pressure 115/65 112/80 105/67 O2 Sat by Pulse 92 L 86 L 97 Oximetry 01/13/25 01/13/25 01/13/25 15:17 15:28 17:26 Temperature Pulse Rate 103 H 105 H 100 Respiratory 18 Rate Blood Pressure 127/61 O2 Sat by Pulse 99 Oximetry 01/13/25 01/13/25 01/13/25 19:06 19:44 19:50 Temperature Pulse Rate 96 101 H 99 Respiratory 16 18 18 Rate Blood Pressure 129/71 O2 Sat by Pulse 98 Oximetry 01/13/25 20:47 Temperature Pulse Rate 91 Respiratory 18 Rate Blood Pressure 108/64 O2 Sat by Pulse 96 Oximetry Medical Decision Making - Medical Decision Making This is a 74 year old male who presents to the emergency department for jerilyn. Was pt. sent in by a medical professional or institution? @ -No Did you speak to anyone other than the patient for history? @ -Family provided the majority of the history Did you review nursing and triage notes? @ -Yes, and I agree, it is accurate with regards to the patient's symptoms. Were old charts reviewed? @ -No Differential Diagnosis? @ -Differential Weakness: Hypoglycemia, shock, sepsis, hyponatremia, anemia, infection, [place], ETOH, adverse medicine reaction, overdose, stroke, this is not meant to be an all-inclusive list. EKG interpreted by me (3pts min.)? @ -EKG interpreted by me demonstrating the following: Sinus tachycardia. Ventricular rate 117 bpm, PA interval 176 ms, QRS duration 87 ms, QTc 393 ms. X-rays interpreted by me (1pt min.)? @ -Chest x-ray obtained. My interpretation identifies a right lower lobe opacity. CT interpreted by me (1pt min.)? @ -Computed tomography scan of the brain and c-spine obtained. My interpretation identifies no evidence of an acute intracranial hemorrhage, skull fracture, or cervical spine fracture. U/S interpreted by me (1pt. min.)? @ -Not obtained What testing was considered but not performed? (CT, X-rays, U/S, labs)? Why? @ -None What meds were considered but not given? Why? @ -None Did you discuss the management of the patient with other professionals? @ -Yes, Dr. Queen, who accepts the patient for admission Did you reconcile home meds? @ -Yes Was smoking cessation discussed for >3mins.? @ -No Was critical care preformed (if so, how long)? @ -No Were there social determinants of health that impacted care today? How? (Homelessness, low income, unemployed, alcoholism, drug addiction, transportation, low edu. Level, literacy, decrease access to med. care, longterm, rehab)? @ -No Was there de-escalation of care discussed even if they declined? (Discuss DNR or withdrawal of care, Hospice)? @ -No What co-morbidities impacted this encounter? (DM, HTN, Smoking, COPD, CAD, Cancer, CVA, Hep., AIDS, mental health diagnosis, sleep apnea, morbid obesity)? @ -COPD Was patient admitted / discharged? @ -Admitted. Lab work demonstrates leukocytosis with a white blood cell count of 24.35. He is also hyponatremic with a sodium of 129. Lactic acid elevated at 2.7. COVID, influenza, and RSV testing negative. Chest x-ray demonstrates an increasing right apical opacity suggestive of superimposed pneumonia. Patient met sepsis criteria at 1419 when the results of the x-ray returned confirming the source of infection. SIRS criteria include leukocytosis and tachycardia. Blood culture was ordered. He had initially been given a liter bolus of normal saline. He was given additional 2 L of lactated Ringer's (total of 3L of fluids) and started on maintenance fluids per the sepsis fluid requirement. Pneumonia protocol initiated with ceftriaxone and azithromycin. Patient admitted to medicine for pneumonia and sepsis. Case discussed with ED attending Dr. Ang. Note: There was an error with scanning off the patient's first dose of Ceftriaxone, and it was given at 1548, not 1637 as documented. Undiagnosed new problem with uncertain prognosis? @ -None Drug Therapy requiring intensive monitoring for toxicity (Heparin, Nitro, Insulin, Cardizem)? @ -None Were any procedures done? @ -None Diagnosis/symptom? @ -Pneumonia, sepsis Acute, or Chronic, or Acute on Chronic? @ -Acute Uncomplicated (without systemic symptoms) or Complicated (systemic symptoms)? @ -Complicated Side effects of treatment? @ -None Exacerbation, Progression, or Severe Exacerbation] @ -Not applicable Poses a threat to life or bodily function? @ -Yes, can lead to septic shock and - Lab Data Result diagrams: 01/14/25 04:34 01/14/25 04:34 Lab Results 01/13/25 01/13/25 01/13/25 Range/Units 13:35 13:35 13:35 WBC 24.35 H (4.50-10.00) 10*3/uL RBC 4.37 L (4.40-5.60) 10*6/uL Hgb 12.8 L (13.0-17.0) g/dL Hct 37.8 L (39.6-50.0) % MCV 86.5 (80.0-97.0) fL MCH 29.3 (27.0-32.0) pg MCHC 33.9 (32.0-37.0) g/dL Plt Count 407 (140-440) 10*3/uL MPV 8.3 L (9.5-12.2) fL Immature Gran % (Auto) 0.9 % Neutrophils % 92.0 % Lymphocytes % 3.9 % Monocytes % 2.9 % Eosinophils % 0.1 % Basophils % 0.2 % Immature Gran # 0.21 H (0.00-0.04) 10*3/uL Neutrophils # 22.41 H (1.80-7.70) 10*3/uL Lymphocytes # 0.94 (0.90-5.00) 10*3/uL Monocytes # 0.71 (0.20-1.00) 10*3/uL Eosinophils # 0.03 L (0.04-0.35) 10*3/uL Basophils # 0.05 (0.00-0.10) 10*3/uL PT 12.1 (10.0-12.5) sec INR 1.1 (<1.2) APTT 26.5 (22.0-30.0) sec Sodium 129 L (137-145) mmol/L Potassium 4.5 (3.5-5.1) mmol/L Chloride 93 L (98-107) mmol/L Carbon Dioxide 21 L (22-30) mmol/L Anion Gap 15 mmol/L BUN 13 (9-20) mg/dL Creatinine 1.04 (0.66-1.25) mg/dL Est GFR (CKD-EPI)AfAm 82 (>60 ml/min/1.73 sqM) Est GFR (CKD-EPI)NonAf 71 (>60 ml/min/1.73 sqM) Glucose 96 (74-99) mg/dL Lactic Ac Sepsis Rflx Plasma Lactic Acid Marvin (0.7-2.0) mmol/L Calcium 9.0 (8.4-10.2) mg/dL Phosphorus 3.1 (2.5-4.5) mg/dL Magnesium 1.8 (1.6-2.3) mg/dL Total Bilirubin 0.7 (0.2-1.3) mg/dL AST 31 (17-59) U/L ALT 20 (4-49) U/L Alkaline Phosphatase 220 H (38-126) U/L Troponin I (0.000-0.034) ng/mL Total Protein 6.9 (6.3-8.2) g/dL Albumin 3.4 L (3.5-5.0) g/dL Influenza Type A (PCR) (Not Detectd) Influenza Type B (PCR) (Not Detectd) RSV (PCR) (Not Detectd) SARS-CoV-2 (PCR) (Not Detectd) 01/13/25 01/13/25 01/13/25 Range/Units 13:35 13:58 14:06 WBC (4.50-10.00) 10*3/uL RBC (4.40-5.60) 10*6/uL Hgb (13.0-17.0) g/dL Hct (39.6-50.0) % MCV (80.0-97.0) fL MCH (27.0-32.0) pg MCHC (32.0-37.0) g/dL Plt Count (140-440) 10*3/uL MPV (9.5-12.2) fL Immature Gran % (Auto) % Neutrophils % % Lymphocytes % % Monocytes % % Eosinophils % % Basophils % % Immature Gran # (0.00-0.04) 10*3/uL Neutrophils # (1.80-7.70) 10*3/uL Lymphocytes # (0.90-5.00) 10*3/uL Monocytes # (0.20-1.00) 10*3/uL Eosinophils # (0.04-0.35) 10*3/uL Basophils # (0.00-0.10) 10*3/uL PT (10.0-12.5) sec INR (<1.2) APTT (22.0-30.0) sec Sodium (137-145) mmol/L Potassium (3.5-5.1) mmol/L Chloride (98-107) mmol/L Carbon Dioxide (22-30) mmol/L Anion Gap mmol/L BUN (9-20) mg/dL Creatinine (0.66-1.25) mg/dL Est GFR (CKD-EPI)AfAm (>60 ml/min/1.73 sqM) Est GFR (CKD-EPI)NonAf (>60 ml/min/1.73 sqM) Glucose (74-99) mg/dL Lactic Ac Sepsis Rflx Plasma Lactic Acid Marvin 2.7 H* (0.7-2.0) mmol/L Calcium (8.4-10.2) mg/dL Phosphorus (2.5-4.5) mg/dL Magnesium (1.6-2.3) mg/dL Total Bilirubin (0.2-1.3) mg/dL AST (17-59) U/L ALT (4-49) U/L Alkaline Phosphatase (38-126) U/L Troponin I <0.012 (0.000-0.034) ng/mL Total Protein (6.3-8.2) g/dL Albumin (3.5-5.0) g/dL Influenza Type A (PCR) Not Detected (Not Detectd) Influenza Type B (PCR) Not Detected (Not Detectd) RSV (PCR) Not Detected (Not Detectd) SARS-CoV-2 (PCR) Not Detected (Not Detectd) 01/13/25 Range/Units 14:22 WBC (4.50-10.00) 10*3/uL RBC (4.40-5.60) 10*6/uL Hgb (13.0-17.0) g/dL Hct (39.6-50.0) % MCV (80.0-97.0) fL MCH (27.0-32.0) pg MCHC (32.0-37.0) g/dL Plt Count (140-440) 10*3/uL MPV (9.5-12.2) fL Immature Gran % (Auto) % Neutrophils % % Lymphocytes % % Monocytes % % Eosinophils % % Basophils % % Immature Gran # (0.00-0.04) 10*3/uL Neutrophils # (1.80-7.70) 10*3/uL Lymphocytes # (0.90-5.00) 10*3/uL Monocytes # (0.20-1.00) 10*3/uL Eosinophils # (0.04-0.35) 10*3/uL Basophils # (0.00-0.10) 10*3/uL PT (10.0-12.5) sec INR (<1.2) APTT (22.0-30.0) sec Sodium (137-145) mmol/L Potassium (3.5-5.1) mmol/L Chloride (98-107) mmol/L Carbon Dioxide (22-30) mmol/L Anion Gap mmol/L BUN (9-20) mg/dL Creatinine (0.66-1.25) mg/dL Est GFR (CKD-EPI)AfAm (>60 ml/min/1.73 sqM) Est GFR (CKD-EPI)NonAf (>60 ml/min/1.73 sqM) Glucose (74-99) mg/dL Lactic Ac Sepsis Rflx Y Plasma Lactic Acid Marvin (0.7-2.0) mmol/L Calcium (8.4-10.2) mg/dL Phosphorus (2.5-4.5) mg/dL Magnesium (1.6-2.3) mg/dL Total Bilirubin (0.2-1.3) mg/dL AST (17-59) U/L ALT (4-49) U/L Alkaline Phosphatase (38-126) U/L Troponin I (0.000-0.034) ng/mL Total Protein (6.3-8.2) g/dL Albumin (3.5-5.0) g/dL Influenza Type A (PCR) (Not Detectd) Influenza Type B (PCR) (Not Detectd) RSV (PCR) (Not Detectd) SARS-CoV-2 (PCR) (Not Detectd) - Radiology Data Radiology results: report reviewed, image reviewed Disposition Clinical Impression: Pneumonia, Sepsis Disposition: ADMITTED IP TO THIS HOSP
[2025-01-13] MEDS: SODIUM CHLORIDE 0.9% 1,000 ML IV ONE (14:03)
[2025-01-13 14:04] LABS: ALT 20 U/L (4-49); AST 31 U/L (17-59); African American GFR (CKD) 82 (>60 ml/min/1.73 sqM); Albumin 3.4 g/dL (3.5-5.0); Alkaline Phosphatase 220 U/L (38-126); Anion Gap 15 mmol/L; Blood Urea Nitrogen 13 mg/dL (9-20); Carbon Dioxide 21 mmol/L (22-30); Chloride 93 mmol/L (98-107); Glucose 96 mg/dL (74-99); Magnesium 1.8 mg/dL (1.6-2.3); Non-African American GFR(CKD) 71 (>60 ml/min/1.73 sqM); Phosphorus 3.1 mg/dL (2.5-4.5); Potassium 4.5 mmol/L (3.5-5.1); Sodium 129 mmol/L (137-145); Total Bilirubin 0.7 mg/dL (0.2-1.3); Total Protein 6.9 g/dL (6.3-8.2)
--- NOTE | 2025-01-13 14:15 | CT ---
EXAMINATION TYPE: CT brain cspine wo con CT DLP: 1379.5 mGycm, Automated exposure control for dose reduction was used. DATE OF EXAM: 01/13/2025 1:46 PM COMPARISON: CTA head and neck 01/20/2024, CT brain C-spine 11/03/2023. CLINICAL INDICATION:Male, 74 years old with history of fall on thinner; fall on blood thinners, pain TECHNIQUE: Brain: Multiple axial CT images of the brain were obtained without IV contrast. Cspine: Axial CT images from the skull base to the inferior aspect of T2 we obtained without intraven ous contrast. Coronal and sagittal reformatted images were also reviewed. FINDINGS: Brain: Extra-axial spaces: No abnormal extra-axial fluid collections. Ventricular system: Within normal limits Cerebral parenchyma: No acute intraparenchymal hemorrhage or mass effect. The estrella-white junction is well differentiated. Rule out injury to the right occipital lobe with encephalomalacia. Scattered hy poattenuating areas are seen within the periventricular white matter. Cerebellum: Unremarkable. Mass effect: No evidence of midline shift. Intracranial vasculature: unremarkable Soft tissues: Normal. Calvarium/osseous structures: No depressed skull fracture. Paranasal sinuses and mastoid air cells: Mastoid air cells are clear. Minor mucosal thickening with a ir-fluid level within the right maxillary sinus. Moderate mucosal thickening of the left sphenoid sin us with air-fluid level. Minimal mucosal thickening of the left maxillary sinus. The remaining parana heidi sinuses are relatively clear. Cerumen within the right external auditory canal. Nasal septal gabbie ation to the left. Visualized orbits: Senile calcific scleral plaques are present. Bilateral aphakia. Cervical spine: Fracture: None. Osseous structures: Unremarkable Vertebral alignment: Degenerative grade 1 anterolisthesis of C4 and C5. Schmorl's node involving the superior endplate of the C7 vertebral body. Spinal canal/Neural Foramina: Broad-based disc bulge at C6-C7 with mild effacement of the anterior th ecal sac. No evidence for significant neural foraminal stenosis. Neck soft tissues: Prevertebral soft tissues are within normal limits. Other: The airway is patent. The right lung apex is not included in the [id number]. Centrilobular emphysematous changes within the left lung apex with similar pleural parenchymal scarring. IMPRESSION: 1. No acute intracranial process. 2. Nonspecific white matter changes, likely secondary to chronic small vessel ischemic disease. 3. Remote injury to the right occipital lobe from prior infarct with encephalomalacia. 4. No evidence of cervical spine fracture. 5. Mild multilevel degenerative disc disease. 6. Paranasal sinus disease with air-fluid levels within the right maxillary sinus and left sphenoid s inus. Correlate for acute sinusitis. [facility], , 01/13/2025 2:13 PM
--- NOTE | 2025-01-13 14:22 | XR ---
EXAMINATION TYPE: XR chest 2V DATE OF EXAM: 01/13/2025 2:13 PM COMPARISON: 09/21/2024 CLINICAL INDICATION: Male, 74 years old with history of Weakness: Shortness of breath TECHNIQUE: XR chest 2V views of the chest are obtained. FINDINGS: Scattered senescent parenchymal changes noted. Hyperinflation compatible with COPD. Fibrotic changes redemonstrated. Increasing right apical opacity most patchy density right lower lobe may reflect superimposed pneumon ia. Correlate clinically. No evidence for atelectasis. Heart size is stable. Mediastinal structures are stable and grossly unremarkable. No evidence for hilar prominence. Degenerative changes dorsal spine. IMPRESSION: 1. Increasing right apical opacity most patchy density right lower lobe may reflect superimposed pneu monia. Correlate clinically. 2. There is COPD with underlying fibrosis. [facility], , 01/13/2025 2:19 PM
[2025-01-13] MEDS ORDERED: PNEUMONIA PROTOCOL UTILIZED 1 EACH MISC PO PRN (14:23)
[2025-01-13] MEDS ORDERED: IPRATROPIUM-ALBUTEROL 3 ML NEB INHALATION PRN (14:23)
[2025-01-13 14:47] LABS: Influenza A Not Detected (Not Detectd); Influenza B Not Detected (Not Detectd); RSV Not Detected (Not Detectd)
[2025-01-13] MEDS: LACTATED RINGERS 1,000 ML IV SCH ×2 (14:48→15:13)
[2025-01-13] MEDS: LACTATED RINGERS 500 ML IV ONE (14:48)
[2025-01-13] MEDS ORDERED: ONDANSETRON 4 MG/2 ML VIAL IVP PRN (15:09)
[2025-01-13] MEDS ORDERED: NALOXONE 0.4 MG/ML 1 ML VIAL IV PRN (15:09)
[2025-01-13] MEDS: IPRATROPIUM-ALBUTEROL 3 ML NEB INHALATION SCH (15:17)
[2025-01-13] MEDS ORDERED: guaiFENesin 600 MG TABLET.ER PO PRN (16:17)
[2025-01-13] MEDS ORDERED: NAPROXEN 250 MG TAB PO PRN (16:17)
[2025-01-13] MEDS ORDERED: ALBUTEROL NEBULIZED 2.5 MG/3 ML INHALATION PRN (16:17)
[2025-01-13] MEDS ORDERED: LIDOCAINE 4% PATCH TOPICAL PRN (16:17)
[2025-01-13] MEDS: HYDROcodone/APAP 5-325MG 1 EACH TAB PO PRN (16:34)
[2025-01-13] MEDS: ACETAMINOPHEN TAB 325 MG TAB PO PRN (16:36)
[2025-01-13] MEDS: AZITHROMYCIN 500 MG in SODIUM CHLORIDE 0.9% 250 ML IVPB STA (17:08)
[2025-01-13] MEDS: ACETAMINOPHEN TAB 500 MG TAB PO STA (17:14)
[2025-01-13 18:41] LABS: Appearance,Urine Clear (Clear); Bilirubin,Urine Negative (Negative); Blood,Urine Negative (Negative); Color,Urine Colorless; Glucose,Urine (UA) Negative (Negative); Ketones,Urine Negative (Negative); Leukocyte Esterase,Urine Negative (Negative); Nitrite,Urine Negative (Negative); PH, Urine 7.5 (5.0-8.0); Protein,Urine Negative (Negative); Specific Gravity,Urine 1.004 (1.001-1.035); Urobilinogen,Urine <2.0 mg/dL (<2.0)
--- NOTE | 2025-01-13 19:00 | P.PN ---
Subjective Progress Note Date: 01/13/25 Patient is a 74-year-old male with COPD on 22.5 L home oxygen, history of CVA/TIA x 3 on Plavix, myocardial infarction, presenting shortness of breath and weakness. Patient states that he is fell down and lost balance the past couple of days. Says he will feel dizzy when he gets up from a seated position and then falls down to the ground. Patient endorses worsening shortness of breath when at rest but worse and on exertion. He also endorses an increased cough with increased yellow/brownish sputum production. Per ED note patient's family states that he has been increasingly confused and does not make sense. Patient states he had recent hospitalization last month and was not given IV antibiotics. Patient denies any fevers, chills, chest pain, abdominal pain, nausea, vomiting, diarrhea, urinary symptoms, or any sick contacts. EKG independently interpreted displaying sinus tachycardia, RBBB, rate 117 bpm, QTc 393, T wave inversions in inferior leads CXR independently interpreted displaying right upper and lower lobe opacity Head/cervical spine CT displaying no acute intracranial process, nonspecific white matter changes, remote injury to the right occipital lobe from prior infarct with encephalomalacia, no evidence of spinal fracture, degenerative disc disease, paranasal sinus disease within the right maxillary sinus and left sphenoid sinus Troponin < 0.012, WBC 24.35, Hgb 12.8, sodium 129, lactic acid 2.7, bicarb 21, anion gap 15, BUN 15, creatinine 1.04, glucose 96 UA unremarkable Cepheid 4 Plex unremarkable T 97.9, [place] 127, RR 18, BP 115/65, O2 saturation 97% on 3 L nasal cannula ED documentation reviewed. Review of systems: Pertinent positives and negatives as discussed in HPI, a complete review of systems was performed and all other systems are negative. Social history: Tobacco: Former 30 pack-year smoker, quit 10 years ago Alcohol: Denies alcohol use Recreational drugs: Denies illicit drug use Travel: No recent travel Occupation: Retired lives at home with and children Physical examination: Vital signs reviewed General: non toxic, no distress, appears at stated age Derm: no unusual rashes/lesions, warm Head: atraumatic, normocephalic, symmetric Eyes: EOMI, anicteric sclera ENT: Nose and ears atraumatic Mouth: no lip lesion, mucus membranes moist Cardiovascular: S1S2 reg, no murmur, positive dorsalis pedis pulse bilateral, no edema Lungs: b/l wheezing, no rhonchi, no rales, no accessory muscle use Abdominal: soft, nontender to palpation, no guarding Ext: muscle strength 5 out of 5 in all 4 extremities grossly, no gross muscle atrophy Neuro: CN II-XI grossly intact, no gross focal neuro deficits Psych: Alert, oriented to person, place, and time Assessment/Plan: Patient is a 74-year-old male with COPD on 22.5 L home oxygen, history of CVA/TIA x 3 on Plavix, myocardial infarction, presenting shortness of breath and weakness. #. Acute on chronic hypoxic respiratory failure in the setting of sepsis secondary to CAP #. Underlying acute COPD exacerbation (2 L home oxygen) #. Leukocytosis with neutrophilic predominance and left shift SIRS 2 with elevated WBC of 24.31 and tachycardic at 127 on admission Curb 65 score of 2 CXR independently interpreted displaying right upper and lower lobe opacity Currently on 3 L oxygen, continue to wean down, manage between 88-92% Cepheid 4 Plex unremarkable S/p 1 L bolus in ED LR at 130 cc an hour DuoNebs [id number] and as needed Resume Spiriva home inhaler Prednisone 40 mg p.o. daily for 5 days Rocephin 2 g IVPB every 24 hours and azithromycin 500 mg p.o. daily Blood cultures, sputum cultures, and urine Legionella, MRSA/MSSA nares ordered Procalcitonin ordered #. Anion gap metabolic acidosis in setting of lactic acidosis #. Lactic acidosis, resolved #. Mild hyponatremia NA 129, bicarb 21, anion gap 15, lactic acid 2.7 S/p 1 L bolus of LR and 1 L bolus of normal saline Currently on LR at 130 cc an hour Resume home sodium bicarbonate tab 650 mg p.o. twice daily Repeat BMP #. Dizziness/weakness Orthostatics ordered PT/OT consulted #. Normocytic anemia Hgb 12.8, at baseline, MCV 86.5 Follow up CBC Chronic: #. History of stroke: Continue Plavix 75 mg p.o. daily #. BPH: Flomax 0.8 mg p.o. daily #. Depression: Resume Prozac 40 mg p.o. daily #. Neuropathic pain: Resume gabapentin 300 mg p.o. 3 times daily #. Chronic back pain Flexeril 10 mg p.o. 3 times daily, [place] 53 25 every 4 hours as needed, lidocaine patches as needed #. Iron deficiency anemia: Continue ferrous sulfate 325 mg p.o. twice daily DVT prophylaxis: Lovenox 40 SQ daily The patient is admitted with an anticipated greater than 2 midnight stay for evaluation of acute on chronic hypoxic respiratory failure in the setting of sepsis secondary to community-acquired pneumonia. CODE STATUS: Full code Discussed with: Patient Anticipated discharge place: Pending clinical course Alejo Zarate MD PGY-1 IM Dictation was produced using [employer] dictation software. please excuse any grammatical, word or spelling errors. Doing better than on arrival. Recent antibiotics I have seen and evaluated the patient today. Discussed with the resident and agree with the residents finding and plan as documented in the resident's note. Changes highlighted in blue font. Objective - Vital Signs Vital signs: Vital Signs Temp 97.9 F 01/13/25 13:18 Pulse 105 H 01/13/25 15:28 Resp 18 01/13/25 14:43 BP 105/67 01/13/25 14:43 Pulse Ox 97 01/13/25 14:43 FiO2 Intake & Output 01/12/25 01/13/25 01/13/25 18:59 06:59 18:59 Weight 88.904 kg - Labs CBC & Chem 7: 01/13/25 13:35 01/13/25 13:35 Labs: Abnormal Lab Results - Last 24 Hours (Table) 01/13/25 01/13/25 01/13/25 Range/Units 13:35 13:35 13:58 WBC 24.35 H (4.50-10.00) 10*3/uL RBC 4.37 L (4.40-5.60) 10*6/uL Hgb 12.8 L (13.0-17.0) g/dL Hct 37.8 L (39.6-50.0) % MPV 8.3 L (9.5-12.2) fL Immature Gran # 0.21 H (0.00-0.04) 10*3/uL Neutrophils # 22.41 H (1.80-7.70) 10*3/uL Eosinophils # 0.03 L (0.04-0.35) 10*3/uL Sodium 129 L (137-145) mmol/L Chloride 93 L (98-107) mmol/L Carbon Dioxide 21 L (22-30) mmol/L Plasma Lactic Acid Marvin 2.7 H* (0.7-2.0) mmol/L Alkaline Phosphatase 220 H (38-126) U/L Albumin 3.4 L (3.5-5.0) g/dL
[2025-01-13] MEDS: ENOXAPARIN 40 MG/0.4 ML SYRINGE SQ SCH (19:02)
[2025-01-13] MEDS: predniSONE 20 MG TAB PO SCH (19:03)
[2025-01-13] MEDS: FLUTICASONE 220 MCG INHALER INHALATION SCH (19:44)
[2025-01-13] MEDS: ATORVASTATIN 40 MG TAB PO SCH (20:09)
[2025-01-13] MEDS: FERROUS SULFATE 325 MG TAB PO SCH (20:09)
[2025-01-13] MEDS: SODIUM BICARBONATE TAB 650 MG TAB PO SCH (20:17)
[2025-01-13] MEDS: oxyCODONE-APAP 10-325MG 1 EACH TAB PO SCH (22:48)
[2025-01-13] MEDS: CYCLOBENZAPRINE 10 MG TAB PO SCH (22:49)
[2025-01-13] MEDS: GABAPENTIN 300 MG CAP PO SCH (22:49)
[2025-01-14 05:03] LABS: Basophils # (A) 0.04 10*3/uL (0.00-0.10); Basophils % (A) 0.2 %; HCT 31.9 % (39.6-50.0); HGB 10.7 g/dL (13.0-17.0); Lymphocytes # (A) 1.19 10*3/uL (0.90-5.00); Lymphocytes % (A) 5.6 %; MCH 29.6 pg (27.0-32.0); MCHC 33.5 g/dL (32.0-37.0); MCV 88.1 fL (80.0-97.0); Mean Platelet Volume 8.3 fL (9.5-12.2); Monocytes # (A) 0.36 10*3/uL (0.20-1.00); Monocytes % (A) 1.7 %; Neutrophils # (A) 19.31 10*3/uL (1.80-7.70); Neutrophils % (A) 91.6 %; Platelet Count 344 10*3/uL (140-440); RBC 3.62 10*6/uL (4.40-5.60); RDW 14.7 % (11.5-14.5); WBC 21.08 10*3/uL (4.50-10.00)
[2025-01-14 05:22] LABS: ALT 18 U/L (4-49); AST 31 U/L (17-59); African American GFR (CKD) >90 (>60 ml/min/1.73 sqM); Albumin 2.5 g/dL (3.5-5.0); Albumin/Globulin Ratio 0.9; Alkaline Phosphatase 179 U/L (38-126); Anion Gap 9 mmol/L; Blood Urea Nitrogen 10 mg/dL (9-20); Calcium 8.5 mg/dL (8.4-10.2); Carbon Dioxide 23 mmol/L (22-30); Chloride 99 mmol/L (98-107); Globulin 2.9 g/dL; Glucose 121 mg/dL (74-99); Magnesium 2.1 mg/dL (1.6-2.3); Non-African American GFR(CKD) 87 (>60 ml/min/1.73 sqM); Potassium 4.8 mmol/L (3.5-5.1); Sodium 131 mmol/L (137-145); Total Bilirubin 0.4 mg/dL (0.2-1.3); Total Protein 5.4 g/dL (6.3-8.2)
[2025-01-14] MEDS: TIOTROPIUM 2.5 MCG INHALER INHALATION SCH (07:42)
[2025-01-14] MEDS: FORMOTEROL FUMARATE 20 MCG/2 ML NEBU INHALATION SCH (07:52)
[2025-01-14] MEDS ORDERED: NON FORMULARY DRUG (Omeprazole [Omeprazole] 20 MG Capsule) PO SCH (09:00)
[2025-01-14] MEDS: FLUoxetine HCL 20 MG CAP PO SCH (09:05)
[2025-01-14] MEDS: CLOPIDOGREL 75 MG TAB PO SCH (09:06)
[2025-01-14] MEDS: TAMSULOSIN 0.4 MG CAP.ER.24H PO SCH (09:06)
[2025-01-14] MEDS: PANTOPRAZOLE 40 MG/10 ML VIAL IV SCH (09:07)
[2025-01-14] MEDS: AZITHROMYCIN 500 MG TAB PO SCH (09:41)
[2025-01-14] MEDS: PYRIDOXINE 50 MG TAB PO SCH (09:41)
--- NOTE | 2025-01-14 15:08 | P.PN ---
Subjective Progress Note Date: 01/14/25 Patient is a 74-year-old male with COPD on home O2 at 2.5 L, CVA, myocardial infarction, and prior pulmonary embolism presenting with shortness of breath. Subsequently found to have pneumonia with sepsis and acute on chronic hypoxic respiratory failure. Placed on IV antibiotics. Patient seen and examined at bedside. Feeling better. Breathing easier. No nausea, vomiting, or diarrhea. Vital signs reviewed General: Nontoxic, no distress, appears at stated age Cardiovascular: S1S2 reg, no murmur Lungs: CTA bilateral, rhonchi bilateral bases, no accessory muscle use Abdominal: Soft, nontender to palpation, no guarding Ext: No gross muscle atrophy, no edema b/l lower extremities, no contractures Neuro: CN II-XI grossly intact, no focal neuro deficits Psych: Alert, oriented, appropriate affect Assessment/Plan: #. Community-acquired pneumonia with sepsis with endorgan damage as evidenced by tachycardia, leukocytosis, and lactic acidosis #. Acute on chronic hypoxic respiratory failure baseline 2.5 L #. Acute exacerbation of COPD - Continue with Zithromax 500 mg p.o. daily dose #2, Rocephin 2 g IV daily dose #2/5 - Albuterol 4 times daily scheduled and as needed, Flovent twice daily, and prednisone 40 mg daily - Back down to home O2 of 2.5 L #. Hyponatremia, improving - Completed IV fluid resuscitation Resolved: Lactic acidosis Anion gap metabolic acidosis Chronic: #. History of stroke: Continue Plavix 75 mg daily #. BPH: Flomax 0.8 mg . daily #. Depression: Resume Prozac 40 mg . daily #. Neuropathic pain: Gabapentin 3 times daily #. Chronic back pain Flexeril 10 mg p.o. 3 times daily, [place] 53 25 every 4 hours as needed, lidocaine patches as needed #. Iron deficiency anemia: Continue ferrous sulfate 325 mg p.o. twice daily Imaging: None new Data Review: CBC and CMP remarkable for white blood cell count of 21, hemoglobin 10.7, sodium 131, and albumin of 2.5 DVT prophylaxis: Lovenox Anticipated discharge date: In a.m. Anticipated discharge place: Home This dictation was prepared using [employer] voice recognition software. Though every attempt is made to correct errors during dictation some may still exist. Objective - Vital Signs Vital signs: Vital Signs Temp 97.3 F L 01/14/25 07:25 Pulse 84 01/14/25 11:30 Resp 19 01/14/25 07:25 BP 132/78 01/14/25 07:25 Pulse Ox 95 01/14/25 07:53 FiO2 3 01/14/25 07:53 Intake & Output 01/13/25 01/14/25 01/14/25 18:59 06:59 18:59 Intake Total 480 Balance 480 Weight 88.904 kg 88.904 kg Intake: Oral 480 Other: # Voids 2 - Labs CBC & Chem 7: 01/14/25 04:34 01/14/25 04:34 Labs: Abnormal Lab Results - Last 24 Hours (Table) 01/14/25 01/14/25 Range/Units 04:34 04:34 WBC 21.08 H (4.50-10.00) 10*3/uL RBC 3.62 L (4.40-5.60) 10*6/uL Hgb 10.7 L (13.0-17.0) g/dL Hct 31.9 L (39.6-50.0) % RDW 14.7 H (11.5-14.5) % MPV 8.3 L (9.5-12.2) fL Immature Gran # 0.18 H (0.00-0.04) 10*3/uL Neutrophils # 19.31 H (1.80-7.70) 10*3/uL Eosinophils # 0.00 L (0.04-0.35) 10*3/uL Sodium 131 L (137-145) mmol/L Glucose 121 H (74-99) mg/dL Alkaline Phosphatase 179 H (38-126) U/L Total Protein 5.4 L (6.3-8.2) g/dL Albumin 2.5 L (3.5-5.0) g/dL Microbiology - Last 24 Hours (Table) 01/13/25 15:58 Gram Stain - Preliminary Sputum
[2025-01-14] MEDS: cefTRIAXone 2 GM in DEXTROSE 5% IN WATER 50 ML IVPB SCH (15:46)
[2025-01-15 02:32] VITALS: RESP 16
[2025-01-15] MEDS: PANTOPRAZOLE 40 MG TABLET PO SCH (06:53)
[2025-01-15 08:34] LABS: HCT 30.9 % (39.6-50.0); MCH 29.1 pg (27.0-32.0); MCHC 32.4 g/dL (32.0-37.0); MCV 89.8 FL (80.0-97.0); Mean Platelet Volume 8.5 FL (9.5-12.2); NRBC Per 100 WBC 0 X 10*3/uL (0.00-0.01); Platelet Count 355 X 10*3/uL (140-440); RBC 3.44 X 10*6/uL (4.40-5.60); RDW 15.1 % (11.5-14.5); WBC 24.48 X 10*3/uL (4.50-10.00)
[2025-01-15 08:40] LABS: BUN/Creat Ratio 12.56 Ratio (12.00-20.00); Blood Urea Nitrogen 11.3 mg/dL (9.0-27.0); Calcium 8.2 mg/dL (8.7-10.3); Carbon Dioxide 23.1 mmol/L (21.6-31.8); Chloride 102 mmol/L (96-109); Glucose 132 mg/dL (70-110); Potassium 4.3 mmol/L (3.5-5.5); Sodium 134 mmol/L (135-145)
[2025-01-15 08:43] VITALS: BP 158/79; TEMP 99.2
[2025-01-15 09:13] VITALS: PULSE 73
--- NOTE | 2025-01-15 11:55 | P.DS ---
Providers Date of admission: 01/13/25 15:22 Discharge Diagnosis: Community-acquired pneumonia with sepsis with endorgan damage as evidenced by tachycardia, leukocytosis, and lactic acidosis Acute on chronic hypoxic respiratory failure baseline 2.5 L Acute exacerbation of COPD Hyponatremia Anion gap metabolic acidosis History of stroke BPH Depression Neuropathic pain Chronic back pain Iron deficient anemia Hospital Course: Patient is a 74-year-old male with COPD on 22.5 L home oxygen, history of CVA/TIA x 3 on Plavix, myocardial infarction, presenting shortness of breath and weakness. Patient states that he is fell down and lost balance the past couple of days. Says he will feel dizzy when he gets up from a seated position and then falls down to the ground. Patient endorses worsening shortness of breath when at rest but worse and on exertion. He also endorses an increased cough with increased yellow/brownish sputum production. Per ED note patient's family states that he has been increasingly confused and does not make sense. Patient states he had recent hospitalization last month and was not given IV antibiotics. Patient denies any fevers, chills, chest pain, abdominal pain, nausea, vomiting, diarrhea, urinary symptoms, or any sick contacts. EKG independently interpreted displaying sinus tachycardia, RBBB, rate 117 bpm, QTc 393, T wave inversions in inferior leads CXR independently interpreted displaying right upper and lower lobe opacity Head/cervical spine CT displaying no acute intracranial process, nonspecific white matter changes, remote injury to the right occipital lobe from prior infarct with encephalomalacia, no evidence of spinal fracture, degenerative disc disease, paranasal sinus disease within the right maxillary sinus and left sphenoid sinus Troponin < 0.012, WBC 24.35, Hgb 12.8, sodium 129, lactic acid 2.7, bicarb 21, anion gap 15, BUN 15, creatinine 1.04, glucose 96 UA unremarkable Cepheid 4 Plex unremarkable T 97.9, RI 127, RR 18, BP 115/65, O2 saturation 97% on 3 L nasal cannula Patient subsequently found to have pneumonia with sepsis and acute on chronic hypoxic respiratory failure. Admitted for further management and was placed on IV antibiotics. He was placed on proper breathing treatment for COPD exacerbation. MRSA/MSSA nares were unremarkable, preliminary blood culture unremarkable, sputum studies showing haemophilus influenzae. Since then patient has been relieved of symptoms and is hemodynamically stable. Upon discharge he will finish antibiotic course and oral steroid course. He has to follow-up with pulmonology due to his recurrent history of pneumonia. He is also to follow-up with his PCP. He can be discharged home today. Patient seen and examined at bedside. Vital signs reviewed and stable. Physical examination: Vital signs reviewed General: non toxic, no distress, appears at stated age, normal weight Cardiovascular: S1S2 reg, no murmur, positive dorsalis pedis pulse bilateral, no edema Lungs: CTA bilateral, no rhonchi, no rales, no accessory muscle use Abdominal: soft, nontender to palpation, no guarding Ext: muscle strength 5 out of 5 in all 4 extremities grossly, no gross muscle atrophy Neuro: CN II-XI grossly intact, no gross focal neuro deficits Psych: Alert, oriented to person, place, and time A total of greater than 30 minutes of time were spent preparing this complex discharge summary. Patient was discharge on January 15, 2025 at 9:41 AM. Alejo Zarate MD PGY-1 IM Dictation was produced using [id number] dictation software. please excuse any grammatical, word or spelling errors. I have seen and evaluated the patient today. Discussed with the resident and agree with the residents finding and plan as documented in the resident's note. Changes highlighted in blue font. Expected date of discharge: 01/15/25 Attending physician: Promise Queen DO Primary care physician: Perfecto Lane Patient Condition at Discharge: Fair Plan - Discharge Summary New Discharge Prescriptions: New predniSONE [Deltasone] 40 mg PO DAILY #4 tab Cefdinir 300 mg PO Q12HR 4 Days #8 cap Azithromycin [Zithromax] 500 mg PO DAILY 1 Days #1 tab Continue Gabapentin [Neurontin] 300 mg PO TID Cyclobenzaprine [Flexeril] 10 mg PO TID Ferrous Sulfate [Iron (65 MG Elemental)] 325 mg PO BID Atorvastatin [Lipitor] 40 mg PO HS Pyridoxine HCl (Vitamin B6) [Pyridoxine HCl] 50 mg PO DAILY FLUoxetine HCL [PROzac] 40 mg PO DAILY Ciclesonide 160mcg 2 puff INHALATION RT-BID Tiotropium Br/Olodaterol HCl [Stiolto Respimat Inhaler (60)] 2 puff INHALATION RT-DAILY Tamsulosin [Flomax] 0.8 mg PO DAILY Sodium Bicarbonate Tab 650 mg PO BID Omeprazole 40 mg PO DAILY Naproxen 375 mg PO BID PRN PRN Reason: Pain Clopidogrel Bisulfate [Plavix] 75 mg PO DAILY Albuterol Inhaler [Ventolin Hfa Inhaler] 2 puff INHALATION RT-QID PRN PRN Reason: Shortness Of Breath Lidocaine 5% Patch [Lidoderm 5% Patch] 2 patch TOPICAL DAILY PRN PRN Reason: Pain guaiFENesin [guaiFENesin ER] 600 mg PO BID PRN PRN Reason: cough secretions oxyCODONE HCL/ACETAMINOPHEN [Percocet 10-325 mg] 1 tab PO TID Discharge Medication List Clopidogrel Bisulfate [Plavix] 75 mg PO DAILY 08/16/21 [History] Cyclobenzaprine [Flexeril] 10 mg PO TID 08/16/21 [History] Gabapentin [Neurontin] 300 mg PO TID 08/16/21 [History] Naproxen 375 mg PO BID PRN 08/16/21 [History] Omeprazole 40 mg PO DAILY 08/16/21 [History] Sodium Bicarbonate Tab 650 mg PO BID 08/16/21 [History] Tamsulosin [Flomax] 0.8 mg PO DAILY 08/16/21 [History] Albuterol Inhaler [Ventolin Hfa Inhaler] 2 puff INHALATION RT-QID PRN 01/19/23 [History] Atorvastatin [Lipitor] 40 mg PO HS 11/03/23 [History] Ferrous Sulfate [Iron (65 MG Elemental)] 325 mg PO BID 11/03/23 [History] Lidocaine 5% Patch [Lidoderm 5% Patch] 2 patch TOPICAL DAILY PRN 11/03/23 [History] Pyridoxine HCl (Vitamin B6) [Pyridoxine HCl] 50 mg PO DAILY 11/03/23 [History] Ciclesonide 160mcg 2 puff INHALATION RT-BID 09/21/24 [History] FLUoxetine HCL [PROzac] 40 mg PO DAILY 09/21/24 [History] Tiotropium Br/Olodaterol HCl [Stiolto Respimat Inhaler (60)] 2 puff INHALATION RT-DAILY 09/21/24 [History] guaiFENesin [guaiFENesin ER] 600 mg PO BID PRN 09/21/24 [History] oxyCODONE HCL/ACETAMINOPHEN [Percocet 10-325 mg] 1 tab PO TID 09/21/24 [History] Azithromycin [Zithromax] 500 mg PO DAILY 1 Days #1 tab 01/15/25 [Rx] Cefdinir 300 mg PO Q12HR 4 Days #8 cap 01/15/25 [Rx] predniSONE [Deltasone] 40 mg PO DAILY #4 tab 01/15/25 [Rx] Follow up Appointment(s)/Referral(s): Alek Leija DO [Doctor of Osteopathic Medicine] - 01/19/25 1:[address] DO [Primary Care Provider] - 1-2 days ([phone] please call [facility] for follow up appiontment) Patient Instructions/Handouts: Community Acquired Pneumonia (DC) Activity/Diet/Wound Care/Special Instructions: Please follow up with PCP and pulmonology. Discharge Disposition: HOME SELF-CARE
== END 2025-01-15 12:21 | disposition home or self-care (01) | DRG 871 ==
LOC: EC 13:17 → 4SSUR 15:22
PROVIDERS: ADMIT Internal Medicine; ATTEND Internal Medicine
DX: A41.9 Sepsis, unspecified organism (principal); J18.9 Pneumonia, unspecified organism; J96.21 Acute and chronic respiratory failure with hypoxia; E87.20 Acidosis, unspecified; J44.0 Chronic obstructive pulmonary disease with (acute) lower respiratory infection; F32.A Depression, unspecified; I10 Essential (primary) hypertension; D50.9 Iron deficiency anemia, unspecified; J44.1 Chronic obstructive pulmonary disease with (acute) exacerbation; E87.1 Hypo-osmolality and hyponatremia; R65.20 Severe sepsis without septic shock; N40.0 Benign prostatic hyperplasia without lower urinary tract symptoms; G89.29 Other chronic pain; M54.9 Dorsalgia, unspecified; R29.6 Repeated falls; B96.3 Hemophilus influenzae [H. influenzae] as the cause of diseases classified elsewhere; I25.2 Old myocardial infarction; Z79.899 Other long term (current) drug therapy; Z87.891 Personal history of nicotine dependence; Z79.02 Long term (current) use of antithrombotics/antiplatelets; Z86.73 Personal history of transient ischemic attack (TIA), and cerebral infarction without residual deficits; Z86.711 Personal history of pulmonary embolism; Z99.81 Dependence on supplemental oxygen; Z87.01 Personal history of pneumonia (recurrent)
CPT/HCPCS: 36415; 70450; 71046; 72125; 80048; 80053; 81003; 83605; 83735; 84100; 84145; 84484; 85025; 85027; 85610; 85730; 87040; 87070; 87205; 87449; 87636; 93005; 94640; 94760; 96361; 96365; 96366; 96368; 99285

== ENCOUNTER → 2025-03-01 | Outpatient (CLI) | payer OTHER ==
--- NOTE | 2025-03-02 08:43 | MR ---
EXAMINATION TYPE: MR lumbar spine wo con DATE OF EXAM: 03/01/2025 5:14 PM COMPARISON: 11/04/2023. 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 IV Contrast: mL (None, if empty) FINDINGS: Alignment: The lumbar vertebral bodies have preserved heights and alignment. Cord: The conus medullaris and the distal spinal cord appear unremarkable with regards to their signa l intensity and morphology. Bones/Discs: Postsurgical changes at L2-L5 with susceptibility artifact vasectomy and bowel to L3 L3 L4 and L4-L5 also present. Moderate degeneration changes at and L5-S1 adjoining disc space to facets joint arthropathy and disc space narrowing osteophytes. Mild degeneration changes throughout the spin e with osteophyte formation and facet joint arthropathy. Intervertebral disc signal is maintained. No abnormal inversion recovery signal to suggest bony edema. T12-L1: No evidence of significant spinal canal stenosis or neural foraminal stenosis. L1-L2: No evidence of significant spinal canal stenosis or neural foraminal stenosis. L2-L3: Susceptibility artifact limits evaluation at this level.There is osteophyte present and/or dis c material/postsurgical change series 301 image 7 which may displace the exiting nerve evaluation valentin ited with susceptibility artifact. L4-L5: Susceptibility artifact limits evaluation at this level. The spinal canal is patent and there is mild to moderate bilateral neural foraminal stenosis secondary to facet joint arthropathy. L5-S1: Osteophytes in the extraforaminal region which displaces the exiting nerves bilaterally series 601 image 3. The neural foramen are mild to moderately narrowed from facet joint arthropathy. No significant spinal canal or neural foraminal stenosis in the remainder of the visualized levels. Other findings: None. IMPRESSION: 1. Overall no significant change from prior. 2. No definitive evidence of significant spinal canal stenosis. 3. Postsurgical changes within limits of the exam the spinal canal is patent. There is large osteoph ytes that displace the exiting L5-S1 nerves bilaterally. Additionally osteophytes or postsurgical swapna nge at L2-L3 on the left may displace the exiting nerve root is poorly visualized due to susceptibili ty artifact. [facility], , 03/02/2025 8:40 AM
== END | disposition home or self-care (01) ==
LOC: RADMRIMAIN 15:58
PROVIDERS: ATTEND Family Medicine
DX: M51.361 Other intervertebral disc degeneration, lumbar region with lower extremity pain only (principal); M25.78 Osteophyte, vertebrae; Z98.890 Other specified postprocedural states
CPT/HCPCS: 72148